=== PATIENT | female | born 1985 | race Caucasian/White ===

== ENCOUNTER 2016-07-23 | Outpatient (CLI) | END 2016-07-23 18:51 | disposition critical access hospital (66) | CPT/HCPCS: A0425; A0429 ==

== ENCOUNTER 2016-07-23 19:20 | Emergency (ER) | payer MEDICAID ==
[2016-07-23] MEDS ORDERED: LORazepam 2 MG/ML SYRINGE IVP STA (19:30)
[2016-07-23] MEDS ORDERED: LORazepam 2 MG/ML SYRINGE ONE (19:33)
[2016-07-23] MEDS ORDERED: diphenhydrAMINE INJ 50 MG/ML VIAL IVP STA (20:13)
[2016-07-23] MEDS ORDERED: HALOPERIDOL 5 MG/ML VIAL IVP ONE (20:13)
[2016-07-23] MEDS ORDERED: HALOPERIDOL 5 MG/ML VIAL ONE (20:15)
[2016-07-23] MEDS ORDERED: diphenhydrAMINE INJ 50 MG/ML VIAL ONE (20:15)
== END 2016-07-24 06:32 | disposition home or self-care (01) ==
DX: F15.10 Other stimulant abuse, uncomplicated (principal); Z87.891 Personal history of nicotine dependence
CPT/HCPCS: 36415; 80053; 80306; 80307; 80320; 80329; 81001; 81025; 83690; 84443; 85025; 96374; 96375; 99284; 99285; J2060

== ENCOUNTER 2016-08-07 | Outpatient (CLI) | payer MEDICAID | END 2016-08-07 22:52 | disposition EMS.NT | DX: R46.89 Other symptoms and signs involving appearance and behavior (principal) ==

== ENCOUNTER 2017-06-01 12:35 | Emergency (ER) | payer MEDICAID ==
--- NOTE | 2017-06-01 13:33 | ED Physician Documentation ---
PD HPI NVD - Stated complaint Stated Complaint: ABD PX/D/DIFF BREATHING - Chief complaint Chief Complaint: Abd Pain - History obtained from History obtained from: Patient - History of Present Illness Timing - onset: Yesterday Timing - duration: Days (1) Timing - details: Abrupt onset, Still present (She is still feeling nauseated though less diarrhea this morning. Having cramping lower abd pains still, left more than right.) Associated symptoms: Abdominal pain (lower), Loss of appetite. No: Fever, Chest pain, Near syncope / syncope Contributing factors: No: Sick contact, Bad food, Travel, Recent antibiotics, Alcohol use (but does do meth episodically.) Improved by: No: Eating Worsened by: Eating Similar symptoms before: Has not had sx before Recently seen: Not recently seen Review of Systems Constitutional: reports: Myalgias, Fatigue. denies: Fever, Chills Nose: reports: Congestion. denies: Rhinorrhea / runny nose Throat: denies: Sore throat Cardiac: denies: Chest pain / pressure Respiratory: denies: Cough GI: reports: Abdominal Pain, Nausea, Vomiting, Diarrhea. denies: Hematemesis, Bloody / black stool : denies: Dysuria, Frequency, Discharge, Missed period Skin: denies: Rash Musculoskeletal: denies: Neck pain, Back pain Neurologic: reports: Generalized weakness. 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 Living Arrangement: reports: At home - Social History Does the pt smoke?: No Smoking Status: Never smoker Does the pt drink ETOH?: No Does the pt have substance abuse?: Yes Substance Use and Type: Marijuana, Meth - Family History Family history: reports: Non contributory - Immunizations Immunizations are current?: Yes - POLST Patient has POLST: No PD ED PE NORMAL - Vitals Vital signs reviewed: Yes - General General: Alert and oriented X 3, No acute distress, Well developed/nourished - HEENT HEENT: Pharynx benign. No: Moist mucous membranes - Neck Neck: Supple, no meningeal sign, No adenopathy - Cardiac Cardiac: RRR, No murmur - Respiratory Respiratory: Clear bilaterally - Abdomen Abdomen: Normal bowel sounds, Soft, Non distended, No organomegaly, Other ( tender lower abd left mostly, but slight right. Some guarding, no rebound nor percussion tender.) - Female Female : Deferred - Rectal Rectal: Deferred - Back Back: No CVA TTP - Derm Derm: Normal color, Warm and dry, No rash - Neuro Neuro: Alert and oriented X 3, No motor deficit, Normal speech - Psych Psych: Other (somewhat tangential, and scattered thought process reason c/w meth use. ) Results - Vitals Vitals: Vital Signs - 24 hr 06/01/17 06/01/17 06/01/17 12:39 14:04 16:12 Temperature 37.1 C 36.9 C 36.5 C Heart Rate 123 H 110 H 74 Respiratory 20 16 15 Rate Blood Pressure 145/103 H 134/97 H 111/78 O2 Saturation 97 100 99 06/01/17 06/01/17 06/01/17 17:35 18:48 19:54 Temperature 36.3 C L 36.8 C 36.8 C Heart Rate 82 58 L 57 L Respiratory 15 16 15 Rate Blood Pressure 110/75 109/74 109/73 O2 Saturation 100 100 100 06/01/17 06/01/17 20:14 21:02 Temperature 36.8 C Heart Rate 93 80 Respiratory 18 18 Rate Blood Pressure 115/71 113/69 O2 Saturation 100 100 Oxygen O2 Source Room air - Labs Labs: Laboratory Tests 06/01/17 06/01/17 06/01/17 13:14 13:14 17:05 WBC 24.4 H RBC 4.79 Hgb 15.2 Hct 44.1 MCV 92.0 MCH 31.8 H MCHC 34.5 RDW 12.8 Plt Count 284 MPV 7.7 L Neut # 22.1 H Lymph # 1.5 Lake # 0.7 Eos # 0.0 Baso # 0.1 Absolute Nucleated RBC 0.00 Nucleated RBC % 0.0 Manual Slide Review Indicated RBC Morph Micro Appear 2+ ANISOCYTOSIS Sodium 133 L Potassium 2.6 L Chloride 95 L Carbon Dioxide 21 Anion Gap 17.0 H BUN 17 Creatinine 1.2 H Estimated GFR (MDRD) 52 L Glucose 160 H Calcium 9.6 Total Bilirubin 1.3 H AST 57 H ALT 17 Alkaline Phosphatase 55 Total Protein 8.7 H Albumin 4.8 Globulin 3.9 Albumin/Globulin Ratio 1.2 Lipase 30 Serum HCG, Qual NEGATIVE Urine Color Urine Clarity Urine pH Ur Specific [place] Urine Protein Urine Glucose (UA) Urine Ketones Urine Occult Blood Urine Nitrite Urine Bilirubin Urine Urobilinogen Ur Leukocyte Esterase Urine RBC Urine WBC Ur Squamous Epith Cells Urine Bacteria Ur Microscopic Review Urine Culture Comments Urine Opiates Screen Ur Oxycodone Screen Urine Methadone Screen Ur Propoxyphene Screen Ur Barbiturates Screen Ur Tricyclics Screen Ur Phencyclidine Scrn Ur Amphetamine Screen U Methamphetamines Scrn U Benzodiazepines Scrn Urine Cocaine Screen U Cannabinoids Screen 06/01/17 18:37 WBC RBC Hgb Hct MCV MCH MCHC RDW Plt Count MPV Neut # Lymph # [place] # Eos # Baso # Absolute Nucleated RBC Nucleated RBC % Manual Slide Review RBC Morph Micro Appear Sodium Potassium Chloride Carbon Dioxide Anion Gap BUN Creatinine Estimated GFR (MDRD) Glucose Calcium Total Bilirubin AST ALT Alkaline Phosphatase Total Protein Albumin Globulin Albumin/Globulin Ratio Lipase Serum HCG, Qual Urine Color YELLOW Urine Clarity CLEAR Urine pH 6.0 Ur Specific [place] 1.015 Urine Protein NEGATIVE Urine Glucose (UA) NEGATIVE Urine Ketones 15 H Urine Occult Blood MODERATE H Urine Nitrite NEGATIVE Urine Bilirubin NEGATIVE Urine Urobilinogen 0.2 (NORMAL) Ur Leukocyte Esterase SMALL H Urine RBC 6-10 H Urine WBC 11-25 H Ur Squamous Epith Cells MOD Squamous H Urine Bacteria Few Ur Microscopic Review INDICATED Urine Culture Comments NOT INDICATED Urine Opiates Screen POSITIVE H Ur Oxycodone Screen NEGATIVE Urine Methadone Screen NEGATIVE Ur Propoxyphene Screen NEGATIVE Ur Barbiturates Screen NEGATIVE Ur Tricyclics Screen NEGATIVE Ur Phencyclidine Scrn NEGATIVE Ur Amphetamine Screen POSITIVE H U Methamphetamines Scrn POSITIVE H U Benzodiazepines Scrn POSITIVE H Urine Cocaine Screen NEGATIVE U Cannabinoids Screen NEGATIVE - Rads (name of study) abd CT Radiology: Prelim report reviewed (wall thickening distal colon c/w colitis. Appendix okay. ) PD MEDICAL DECISION MAKING - ED course Complexity details: reviewed results, re-evaluated patient (Given fluids and meds. Recehcek abd with LLQ tender and some midline as well. Can get CT to eval ; less likely appendix with tender more to left but still wanting to eval. ), considered differential (sounds likely viral GE but having lower abd pain/ tender. Will give fluids and meds and then recheck. ), d/w patient Departure - Departure Disposition: 01 Home, Self Care Clinical Impression: Enteritis, Lower abdominal pain, Methamphetamine use Diarrhea Qualifiers: Diarrhea type: infectious Qualified Code(s): A09 - Infectious gastroenteritis and colitis, unspecified Condition: Stable Record reviewed to determine appropriate education?: Yes Instructions: Abdominal Pain, ED Diarrhea Viral Follow-Up: Silva Phillip ARNP [Primary Care Provider] - Prescriptions: Dicyclomine [Bentyl] 10 mg PO QID PRN #15 capsule PRN Reason: Spasms Ondansetron Odt [Zofran] 4 mg TL Q6H PRN #15 tablet PRN Reason: Nausea / Vomiting Comments: This sounds like a viral intestinal infection. Use ondansetron if needed for nausea. Tylenol or ibuprofen if needed for stomach cramps and pains. Add Bentyl if needed for worse cramps or pains. This will also help reduce diarrhea. For tonight into tomorrow use hydrocodone if needed every 4-6 hours. This should improve into tomorrow and the next day. Try to avoid recreational drug use. Drink lots of fluids. Discharge Date/Time: 06/01/17 21:16
[2017-06-01 13:44] LABS: BASOPHILS # (AUTO) 0.1 10^3/uL (0.0-0.1); BASOPHILS % (AUTO) 0.4 %; HCT - HEMATOCRIT 44.1 % (37.0-47.0); HGB - HEMOGLOBIN 15.2 g/dL (12.0-16.0); LYMPHOCYTES # (AUTO) 1.5 10^3/uL (1.5-3.5); LYMPHOCYTES % (AUTO) 6.2 %; MEAN CORPUSCULAR HEMOGLOBIN 31.8 pg (27.0-31.0); MEAN CORPUSCULAR HGB CONC 34.5 g/dL (32.0-36.0); MEAN PLATELET VOLUME 7.7 fL (7.9-10.8); MONOCYTES # (AUTO) 0.7 10^3/uL (0.0-1.0); NEUTROPHILS # (AUTO) 22.1 10^3/uL (1.5-6.6); NEUTROPHILS % (AUTO) 90.4 %; RED BLOOD COUNT 4.79 10^6/uL (4.20-5.40); RED CELL DISTRIBUTION WIDTH 12.8 % (12.0-15.0); UNCORRECTED WHITE BLOOD COUNT 24.4 x10^3/uL; WHITE BLOOD COUNT 24.4 x10^3/uL (4.8-10.8)
[2017-06-01] MEDS ORDERED: KETOROLAC 60 MG/2 ML VIAL IVP STA (13:51)
[2017-06-01] MEDS ORDERED: SODIUM CHLORIDE 0.9% 1,000 ML IV ONE ×2 (13:51→16:33)
[2017-06-01] MEDS ORDERED: ONDANSETRON 4 MG/2 ML VIAL IVP STA ×2 (13:51→16:33)
[2017-06-01] MEDS ORDERED: DIPHENOX/ATROPINE 2.5/0.025 MG TABLET PO STA (13:52)
[2017-06-01] MEDS ORDERED: HALOPERIDOL 5 MG/ML VIAL IVP ONE (13:52)
[2017-06-01 14:00] LABS: ALBUMIN/GLOBULIN RATIO 1.2 (1.0-2.2); BILIRUBIN,TOTAL 1.3 mg/dL (0.2-1.0); CALCIUM 9.6 mg/dL (8.5-10.3); CREATININE 1.2 mg/dL (0.4-1.0); POTASSIUM 2.6 mmol/L (3.5-5.0); TOTAL PROTEIN 8.7 g/dL (6.7-8.2)
[2017-06-01] MEDS ORDERED: ONDANSETRON 4 MG/2 ML VIAL ONE ×2 (14:21→16:47)
[2017-06-01] MEDS ORDERED: KETOROLAC 30 MG/ML VIAL ONE (14:21)
[2017-06-01] MEDS ORDERED: DIPHENOX/ATROPINE 2.5/0.025 MG TABLET PO ONE (14:21)
[2017-06-01] MEDS ORDERED: HALOPERIDOL 5 MG/ML VIAL ONE (14:21)
[2017-06-01] MEDS ORDERED: POTASSIUM BICARB 25 MEQ TABLET PO STA (15:11)
[2017-06-01] MEDS ORDERED: POTASSIUM BICARB 25 MEQ TABLET PO ONE (15:21)
[2017-06-01] MEDS ORDERED: fentaNYL 100 MCG/2 ML VIAL IVP STA (16:33)
[2017-06-01] MEDS ORDERED: fentaNYL 100 MCG/2 ML VIAL ONE (16:46)
[2017-06-01] MEDS ORDERED: IOPAMIDOL-300 100 ML VIAL ONE (17:00)
[2017-06-01 19:02] LABS: BILIRUBIN,URINE NEGATIVE (NEGATIVE)
[2017-06-01 19:13] LABS: UA w/ MICROSCOPIC CHARGE YES
[2017-06-01 19:14] LABS: UR CULTURE IF IND NOT INDICATED
[2017-06-01] MEDS ORDERED: IOPAMIDOL-300 100 ML VIAL IVP ONE (19:16)
--- NOTE | 2017-06-01 19:38 | CT Preliminary Report ---
Exam: CT ABDOMEN/PELVIS W/ IMPRESSION: 1. Small bowel wall thickening, most likely due to an enteritis, infectious versus noninfectious. 2. Other incidental or chronic findings. [facility] SITE ID: [id number]
--- NOTE | 2017-06-01 19:40 | CT Report ---
EXAM: CT ABDOMEN AND PELVIS EXAM DATE: 06/01/2017 07:06 PM. CLINICAL HISTORY: Lower abd pain. COMPARISONS: None. TECHNIQUE: Routine helical CT imaging was performed through the abdomen and pelvis. IV contrast: 100 ML ISOVUE 300. Enteric contrast: No. Reconstructions: Coronal and sagittal. In accordance with CT protocol optimization, one or more of the following dose reduction techniques w ere utilized for this exam: automated exposure control, adjustment of mA and/or KV based on patient s ize, or use of iterative reconstructive technique. FINDINGS: Lung Bases: Unremarkable. Liver: Normal. No masses. Gallbladder/Bile Ducts: Distended gallbladder measuring over 8 cm in length. Otherwise unremarkable. No ductal dilation. Spleen: Normal. Pancreas: Normal. Adrenal Glands: Normal. Kidneys: Normal. No masses or hydronephrosis. Peritoneal Cavity/Bowel: Nonspecific small bowel air-fluid levels. Mild wall thickening of mid small bowel loops measuring up to 9 mm in thickness. No free fluid, free air or adenopathy. Unremarkable r egion of appendix low in pelvis. Pelvic Organs: Unremarkable urinary bladder. Retroverted uterus with IUD in place. Vasculature: No aneurysms or other significant abnormality. Bones: No significant abnormality. Other: None. IMPRESSION: 1. Small bowel wall thickening, most likely due to an enteritis, infectious versus noninfectious. 2. Other incidental or chronic findings. [facility] Referring Provider Line: [phone] SITE ID: [id number]
[2017-06-01] MEDS ORDERED: ONDANSETRON ODT 4 MG Prepack 2 TL PRN (20:06)
[2017-06-01] MEDS ORDERED: HYDROcod/ACET 5/325 Prepack 6 PO ONE ×2 (20:06→20:15)
[2017-06-01] MEDS ORDERED: HYDROmorphone 1 MG/ML SYRINGE IVP STA (20:07)
[2017-06-01] MEDS ORDERED: HYDROmorphone 1 MG/ML SYRINGE ONE (20:15)
[2017-06-01] MEDS ORDERED: ONDANSETRON ODT 4 MG Prepack 2 TL ONE (20:15)
[2017-06-01 22:00] VITALS: BP 113/69
== END 2017-06-01 21:16 | disposition home or self-care (01) ==
LOC: ED 12:35
DX: K52.9 Noninfective gastroenteritis and colitis, unspecified (principal); R10.32 Left lower quadrant pain; F15.90 Other stimulant use, unspecified, uncomplicated
CPT/HCPCS: 36415; 74177; 80053; 80306; 81001; 83690; 84703; 85025; 96361; 96374; 96375; 96376; 99284; A9270; J1170; Q9967; 81003; 87086

== ENCOUNTER 2017-06-22 14:49 | Emergency (ER) | payer MEDICAID ==
[2017-06-22 15:02] VITALS: BP 113/72
[2017-06-22 15:49] LABS: BILIRUBIN,URINE NEGATIVE (NEGATIVE); PH,URINE 7.5 PH (5.0-7.5)
[2017-06-22 15:51] LABS: HCG UR QUAL NEGATIVE; UA w/ MICROSCOPIC CHARGE YES
[2017-06-22 15:58] LABS: UR CULTURE IF IND NOT INDICATED; WBC,URINE 0-3 /HPF (0-5)
--- NOTE | 2017-06-22 15:58 | ED Physician Documentation ---
PD HPI ABD PAIN - Stated complaint Stated Complaint: ABD PX,FEMALE - Chief complaint Chief Complaint: Abd Pain - History obtained from History obtained from: Patient - History of Present Illness Quality: Cramping Associated symptoms: Diarrhea (for about one week, up to two soft stools per day.). No: Fever, Nausea, Vomiting, Dysuria Similar symptoms before: Diagnosis (History of enteritis and vaginosis) Recently seen: Clinic ([facility] one week ago, and prescribed Flagyl for vaginosis.) - Additional information Additional information: The patient is a 32-year-old female who presents with lower abdominal cramping pain that has been waxing and waning for several days. She also reports vaginal bleeding, particularly after intercourse, for the past 3 days. She reports mild dysuria. She denies fever, nausea or vomiting. She reports diarrhea for the past week with up to 2 stools per day. She was seen in the [facility] clinic 1 week ago and was diagnosed with vaginosis for which she was prescribed Flagyl. She only took 1 dose of the Flagyl and has not taken the remainder. Review of her medical records reveals she was seen here last month with similar symptoms and was diagnosed with enteritis. She also has been positive for methamphetamine use on her last few emergency department visits. Review of Systems Constitutional: denies: Fever Nose: denies: Congestion Throat: denies: Sore throat Cardiac: denies: Chest pain / pressure Respiratory: denies: Dyspnea, Cough GI: reports: Abdominal Pain, Diarrhea. 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 - Present Medications Home Medications: Ambulatory Orders Medication Instructions Recorded Confirmed FLUoxetine [PROzac] 80 mg PO DAILY 12/05/12 06/22/17 clonazePAM [KlonoPIN] 1 mg QID 05/02/16 06/22/17 Topiramate [Topamax] 50 mg PO 06/01/17 HYDROcod/ACETAM 5/325 [Vicodin 1 - 2 ea PO Q6H PRN #6 tablet 06/22/17 5/325] - Allergies Allergies/Adverse Reactions: Allergies Allergy/AdvReac Type Severity Reaction Status Date / Time Penicillins Allergy Severe Hives Verified 06/22/17 15:02 - Social History Does the pt smoke?: No Smoking Status: Never smoker Does the pt drink ETOH?: No Does the pt have substance abuse?: Yes Substance Use and Type: Meth - Immunizations Immunizations are current?: Yes - POLST Patient has POLST: No PD ED PE NORMAL - Vitals Vital signs reviewed: Yes (normal) - General General: Alert and oriented X 3, Well developed/nourished - HEENT HEENT: Atraumatic, EOMI, Moist mucous membranes, Pharynx benign - Neck Neck: No adenopathy, No JVD - Cardiac Cardiac: RRR, No murmur - Respiratory Respiratory: No respiratory distress, Clear bilaterally - Abdomen Abdomen: Normal bowel sounds, Soft, Non tender, No organomegaly - Back Back: No CVA TTP - Derm Derm: No rash - Extremities Extremities: No edema, No calf tenderness / cord - Neuro Neuro: Alert and oriented X 3, No motor deficit, Normal speech PD ED PE EXPANDED - Female Female : Normal external, Normal exam, Vaginal Bleeding (Scant blood-tinged mucus at the cervical os.), Cultures sent, Clinical Team Manager present. No: Vaginal Discharge, CMT, Adnexal Mass, Adnexal Tenderness Results - Vitals Vitals: Oxygen O2 Source Room air - Labs Labs: Laboratory Tests 06/22/17 06/22/17 15:36 15:36 Urine Color YELLOW Urine Clarity CLEAR Urine pH 7.5 Ur Specific [place] 1.020 Urine Protein NEGATIVE Urine Glucose (UA) NEGATIVE Urine Ketones NEGATIVE Urine Occult Blood SMALL H Urine Nitrite NEGATIVE Urine Bilirubin NEGATIVE Urine Urobilinogen 0.2 (NORMAL) Ur Leukocyte Esterase NEGATIVE Urine RBC 0-5 Urine WBC 0-3 Ur Squamous Epith Cells FEW Squamous Urine Bacteria Rare Ur Microscopic Review INDICATED Urine Culture Comments NOT INDICATED Urine HCG, Qual NEGATIVE Urine Opiates Screen NEGATIVE Ur Oxycodone Screen NEGATIVE Urine Methadone Screen NEGATIVE Ur Propoxyphene Screen NEGATIVE Ur Barbiturates Screen NEGATIVE Ur Tricyclics Screen NEGATIVE Ur Phencyclidine Scrn NEGATIVE Ur Amphetamine Screen NEGATIVE U Methamphetamines Scrn NEGATIVE U Benzodiazepines Scrn POSITIVE H Urine Cocaine Screen NEGATIVE U Cannabinoids Screen NEGATIVE PD MEDICAL DECISION MAKING - ED course Complexity details: reviewed old records, reviewed results, re-evaluated patient , considered differential, d/w patient ED course: The patient's presentation is significant for pelvic cramping of uncertain etiology. She has been recently diagnosed with bacterial vaginosis, but has not taken the prescribed medication, although she does have the medication in her possession. Pelvic exam was performed and cervical cultures were sent to the lab. test is negative, and there is no evidence of urinary tract infection. I discussed with the patient and her male profiler the importance of taking antibiotics as previously prescribed. Because of her cramping pain, a short course of Vicodin, 6 tablets was prescribed. I discussed with her the importance of outpatient follow-up, as well as potentially worrisome signs or symptoms that should prompt reevaluation in the emergency department. Departure - Departure Disposition: 01 Home, Self Care Clinical Impression: Pelvic pain, Vaginosis Condition: Stable Instructions: ED Pelvic Pain [facility] Follow-Up: Anneliese Gregory, [Provider Admit Priv/Credential] - Prescriptions: HYDROcod/ACETAM 5/325 [Vicodin 5/325] 1 - 2 ea PO Q6H PRN #6 tablet PRN Reason: Pain Comments: Continue ibuprofen as needed for pain. Resume taking Flagyl as previously prescribed by your material coordinator. You can use Vicodin as prescribed if needed for pain. Follow-up for pelvic ultrasound next week as scheduled. Follow up with your material coordinator next week as scheduled. Return to the emergency department if you develop increasing abdominal or pelvic pain, or otherwise worsening symptoms. Discharge Date/Time: 06/22/17 17:09
== END 2017-06-22 17:09 | disposition home or self-care (01) ==
LOC: ED 14:49
DX: N76.0 Acute vaginitis (principal); R10.2 Pelvic and perineal pain; F15.90 Other stimulant use, unspecified, uncomplicated
CPT/HCPCS: 80306; 81001; 81003; 81025; 87086; 87491; 87591; 99283

== ENCOUNTER 2017-06-26 18:35 | Emergency (ER) | payer MEDICAID ==
[2017-06-26] MEDS ORDERED: cefTRIAXone 250 MG VIAL IM STA (19:40)
[2017-06-26] MEDS ORDERED: AZITHROMYCIN 250 MG TABLET PO STA (19:41)
[2017-06-26] MEDS ORDERED: LIDOCAINE 1% 2 ML VIAL ONE (20:23)
[2017-06-26] MEDS ORDERED: cefTRIAXone 250 MG VIAL ONE (20:24)
[2017-06-26] MEDS ORDERED: AZITHROMYCIN 250 MG TABLET PO ONE (20:25)
--- NOTE | 2017-06-26 20:27 | ED Physician Documentation ---
History of Present Illness - Stated complaint Stated Complaint: FEMALE - Chief complaint Chief Complaint: General - History obtained from History obtained from: Patient, Family - History of Present Illness Timing: How many days ago (several) Pain level max: 6 Pain level now: 4 Improved by: vicodin Worsened by: nothing - Additonal information Additional information: Patient is a 32-year-old female who was seen here a few days ago, tested for gonorrhea and the test came back positive this morning. Called to return to the emergency department for treatment. She is still having some abdominal pain and cramping. No fevers. No vomiting. 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 - Present Medications Home Medications: Ambulatory Orders Medication Instructions Recorded Confirmed FLUoxetine [PROzac] 80 mg PO DAILY 12/05/12 06/22/17 clonazePAM [KlonoPIN] 1 mg QID 05/02/16 06/22/17 Topiramate [Topamax] 50 mg PO 06/01/17 HYDROcod/ACETAM 5/325 [Vicodin 1 - 2 ea PO Q6H PRN #6 tablet 06/22/17 06/26/17 5/325] Hydrocodone/Acetaminophen 1 - 2 each PO Q6H PRN #7 tablet 06/26/17 [Hydrocodon-Acetaminophen 5-325] - Allergies Allergies/Adverse Reactions: Allergies Allergy/AdvReac Type Severity Reaction Status Date / Time Penicillins Allergy Severe Hives Verified 06/22/17 15:02 - Social History Does the pt smoke?: No Smoking Status: Never smoker Does the pt drink ETOH?: No Does the pt have substance abuse?: Yes - Immunizations Immunizations are current?: Yes - POLST Patient has POLST: No PD ED PE NORMAL - Vitals Vital signs reviewed: Yes - General General: Alert and oriented X 3, No acute distress, Well developed/nourished - HEENT HEENT: PERRL, Moist mucous membranes - Neck Neck: Supple, no meningeal sign - Cardiac Cardiac: RRR, Strong equal pulses - Respiratory Respiratory: No respiratory distress, Clear bilaterally - Abdomen Abdomen: Normal bowel sounds, Soft, Non tender, Non distended - Derm Derm: Warm and dry - Neuro Neuro: Alert and oriented X 3 - Psych Psych: Normal mood, Normal affect Results - Vitals Vitals: Vital Signs - 24 hr 06/26/17 06/26/17 06/26/17 18:39 21:06 21:21 Temperature 36.9 C 37.2 C 36.7 C Heart Rate 90 94 66 Respiratory 17 18 18 Rate Blood Pressure 153/89 H 132/82 H 147/64 H O2 Saturation 98 98 97 Oxygen O2 Source Room air PD MEDICAL DECISION MAKING - ED course Complexity details: reviewed old records, considered differential, d/w patient ED course: Patient is a 32-year-old female who test positive for gonorrhea. Treated here. Tolerated well. We will have her follow-up with her doctor for further care. Patient counseled regarding signs and symptoms for which I believe and urgent re-evaluation would be necessary. Patient with good understanding of and agreement to plan and is comfortable going home at this time This document was made in part using voice recognition software. While efforts are made to proofread this document, sound alike and grammatical errors may occur. Departure - Departure Disposition: 01 Home, Self Care Clinical Impression: Gonorrhea Condition: Good Instructions: ED Gonorrhea Female Follow-Up: Silva Phillip ARNP [Primary Care Provider] - Within 1 week Anneliese Gregory DO [Provider Admit Priv/Credential] - Tomorrow Prescriptions: Hydrocodone/Acetaminophen [Hydrocodon-Acetaminophen 5-325] 1 - 2 each PO Q6H PRN #7 tablet PRN Reason: pain Comments: You were treated for gonorrhea tonight. Use condoms for sexual activity and you should be retested to ensure that the infection has cleared from you and your partner. Notify any partners that they may be exposed as well. Discharge Date/Time: 06/26/17 21:21
[2017-06-26 21:28] VITALS: BP 147/64
== END 2017-06-26 21:21 | disposition home or self-care (01) ==
LOC: ED 18:35
DX: A54.9 Gonococcal infection, unspecified (principal)
CPT/HCPCS: 96372; 99283; A9270

== ENCOUNTER 2017-07-03 15:02 | Emergency (ER) | payer MEDICAID ==
[2017-07-03 15:22] VITALS: BP 128/72
== END 2017-07-03 15:42 | disposition left against medical advice (07) ==
LOC: ED 15:02
DX: Z53.21 Procedure and treatment not carried out due to patient leaving prior to being seen by health care provider (principal)

== ENCOUNTER 2017-07-09 17:32 | Emergency (ER) | payer MEDICAID ==
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
[2017-07-09] MEDS ORDERED: oxyCOD/ACETAMIN 5 MG/325 MG TABLET PO STA ×2 (18:43→20:18)
[2017-07-09] MEDS ORDERED: KETOROLAC 60 MG/2 ML VIAL IM STA (18:43)
[2017-07-09] MEDS ORDERED: LORazepam 0.5 MG TABLET PO STA (18:44)
--- NOTE | 2017-07-09 20:08 | CT Preliminary Report ---
Exam: CT HEAD W/O IMPRESSION: Normal head CT. [facility] SITE ID: [id number]
--- NOTE | 2017-07-09 20:11 | CT Preliminary Report ---
Exam: CT FACIAL BONES W/O IMPRESSION: Nasal bone fractures, displaced to the left. [facility] SITE ID: [id number]
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
[2017-07-09] MEDS ORDERED: CLINDAMYCIN 150 MG CAPSULE PO STA (20:18)
[2017-07-09] MEDS ORDERED: cefTRIAXone 500 MG VIAL IM STA (20:18)
[2017-07-09] MEDS ORDERED: oxyCODONE/ACET 5/325 Prepack 4 PO STA (20:23)
[2017-07-09] MEDS ORDERED: LIDOCAINE 1% 2 ML VIAL ONE (20:33)
[2017-07-09 20:58] VITALS: BP 127/88
== END 2017-07-09 21:34 | disposition home or self-care (01) ==
LOC: ED 17:32
DX: S00.12XA Contusion of left eyelid and periocular area, initial encounter (principal); S02.2XXA Fracture of nasal bones, initial encounter for closed fracture; Y04.0XXA Assault by unarmed brawl or fight, initial encounter; N76.0 Acute vaginitis; B96.89 Other specified bacterial agents as the cause of diseases classified elsewhere
CPT/HCPCS: 70450; 70486; 87210; 87491; 87591; 96372; 99283; 99284; A9270

== ENCOUNTER 2017-07-14 22:18 | Emergency (ER) | payer MEDICAID ==
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
[2017-07-14] MEDS ORDERED: ACETAMINOPHEN 325 MG TABLET PO STA (22:49)
[2017-07-14 22:55] VITALS: BP 128/68
== END 2017-07-14 22:50 | disposition home or self-care (01) ==
LOC: ED 22:18
DX: S02.2XXA Fracture of nasal bones, initial encounter for closed fracture (principal); S00.12XA Contusion of left eyelid and periocular area, initial encounter; S00.11XA Contusion of right eyelid and periocular area, initial encounter; Y09 Assault by unspecified means; Y92.009 Unspecified place in unspecified non-institutional (private) residence as the place of occurrence of the external cause
CPT/HCPCS: 99282; 99283

== ENCOUNTER 2017-08-04 12:01 | Outpatient (CLI) | payer MEDICAID ==
[2017-08-05 12:56] LABS: HEPATITIS C ANTIBODY NON-REACTIVE (NON-REACTIVE)
== END 2017-08-04 12:02 | disposition home or self-care (01) ==
LOC: LAB 12:01
PROVIDERS: ATTEND Obstetrics & Gynecology
DX: Z11.3 Encounter for screening for infections with a predominantly sexual mode of transmission (principal)
CPT/HCPCS: 36415; 86803

== ENCOUNTER 2017-08-04 12:17 | Observation (INO) | payer MEDICAID ==
[2017-08-04 14:06] LABS: BILIRUBIN,URINE NEGATIVE (NEGATIVE); GLUCOSE, URINE (UA) NEGATIVE (NEGATIVE); KETONES,URINE (UA) NEGATIVE (NEGATIVE); LEUKOCYTE ESTERASE, URINE NEGATIVE (NEGATIVE); NITRITE,URINE NEGATIVE (NEGATIVE); OCCULT BLOOD,URINE MODERATE (NEGATIVE); PROTEIN,URINE NEGATIVE (NEGATIVE); UROBILINOGEN,URINE 0.2 (NORMAL) E.U./dL (NORMAL)
[2017-08-04 14:09] LABS: CLARITY,URINE CLEAR (CLEAR); HCG UR QUAL NEGATIVE
[2017-08-04] MEDS ORDERED: HYDROcod/ACETAM 5/325 MG TABLET PO STA (14:32)
[2017-08-04 14:33] LABS: BACTERIA,URINE Rare /HPF (None Seen); RBC,URINE 0-5 /HPF (0-5); SQUAMOUS EPITHELIAL CELL,UR NONE SEEN (<= Few)
--- NOTE | 2017-08-04 14:38 | ED Physician Documentation ---
PD HPI FEMALE - Stated complaint Stated Complaint: FEMALE - Chief complaint Chief Complaint: Abd Pain - History obtained from History obtained from: Patient - History of Present Illness Timing - onset: How many weeks ago (several) Timing - duration: Weeks Timing - details: Gradual onset Pain level max: 8 Pain level max: 8 Associated symptoms: Pelvic pain, Vaginal pain, Vaginal bleeding, Vaginal discharge. No: Fever, Dysuria, Urinary frequency Contributing factors: Exposed to STD (gonorrhea) Similar symptoms before: Diagnosis (gonorrhea) - Additional information Additional information: Patient is a 32-year-old female who presents to the emergency department with complaints of continual vaginal discharge, burning and pain. She was treated for gonorrhea approximately 3 weeks ago with Rocephin and azithromycin. After that was treated with Flagyl for a yeast infection and bacterial vaginitis. Was then re-treated for gonorrhea with azithromycin 1 g p.o. She states she is still having symptoms. Has continued vaginal discharge and pain. Continued itching. Has lower abdominal pain as well. No fevers. No vomiting. Review of Systems Ten Systems: 10 systems reviewed and negative Constitutional: denies: Fever, Chills Ears: denies: Ear pain Nose: denies: Rhinorrhea / runny nose, Congestion Throat: denies: Sore throat Cardiac: denies: Chest pain / pressure Respiratory: denies: Cough GI: denies: Nausea, Vomiting, Diarrhea Skin: denies: Rash Musculoskeletal: denies: Neck pain, Back pain Neurologic: denies: Headache PD PAST MEDICAL HISTORY - Past Medical History Past Medical History: No Respiratory: None Neuro: None Endocrine/Autoimmune: None Psych: Depression, Anxiety, Eating disorder - Past Surgical History 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 - Present Medications Home Medications: Ambulatory Orders Medication Instructions Recorded Confirmed Topiramate [Topamax] 50 mg PO QPM 06/01/17 08/04/17 Clonidine HCl [Catapres] 0.2 mg PO DAILY 07/09/17 08/04/17 Fluoxetine HCl [Fluoxetine HCl] 80 mg PO DAILY 08/04/17 08/04/17 Ibuprofen 600 mg PO BID 08/04/17 08/04/17 clonazePAM [Clonazepam] 1 mg PO QID PRN 08/04/17 08/04/17 traZODone [Desyrel] 50 mg PO QPM 08/04/17 08/04/17 - Allergies Allergies/Adverse Reactions: Allergies Allergy/AdvReac Type Severity Reaction Status Date / Time Penicillins Allergy Severe Hives Verified 08/04/17 12:24 - Social History Does the pt smoke?: No Smoking Status: Never smoker Does the pt drink ETOH?: No Does the pt have substance abuse?: Yes - Immunizations Immunizations are current?: Yes - POLST Patient has POLST: No PD ED PE NORMAL - Vitals Vital signs reviewed: Yes - General General: Alert and oriented X 3, No acute distress - HEENT HEENT: Moist mucous membranes - Neck Neck: Supple, no meningeal sign - Cardiac Cardiac: RRR, Strong equal pulses - Respiratory Respiratory: No respiratory distress, Clear bilaterally - Abdomen Abdomen: Soft, Non distended, Other (Mild tenderness to palpation suprapubic. 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 IUD strings visible. + CMT. +R adnexal tenderness.) - Back Back: No CVA TTP - Derm Derm: Warm and dry - Extremities Extremities: No edema, No calf tenderness / cord - Neuro Neuro: Alert and oriented X 3 - Psych Psych: Normal mood, Normal affect Results - Vitals Vitals: Vital Signs - 24 hr 08/04/17 08/04/17 12:20 17:18 Temperature 37 C 37.3 C Heart Rate 77 62 Respiratory 16 16 Rate Blood Pressure 113/68 115/82 H O2 Saturation 100 100 Oxygen O2 Source Room air - Labs Labs: Microbiology 08/04/17 14:49 Wet Prep - Final Vaginal 08/04/17 14:50 CAIO Preparation - Final Other - Vaginal Laboratory Tests 08/04/17 08/04/17 08/04/17 13:45 17:00 17:00 WBC 7.5 RBC 4.14 L Hgb 13.2 Hct 38.6 MCV 93.3 MCH 32.0 H MCHC 34.3 RDW 13.3 Plt Count 225 MPV 7.1 L Neut # 5.3 Lymph # 1.5 [place] # 0.5 Eos # 0.2 Baso # 0.1 Absolute Nucleated RBC 0.00 Nucleated RBC % 0.0 Sodium 137 Potassium 4.1 Chloride 103 Carbon Dioxide 25 Anion Gap 9.0 BUN 11 Creatinine 0.6 Estimated GFR (MDRD) 117 Glucose 92 Calcium 8.9 Total Bilirubin 0.2 AST 55 H ALT 23 Alkaline Phosphatase 55 Total Protein 7.3 Albumin 4.3 Globulin 3.0 Albumin/Globulin Ratio 1.4 Lipase 57 H Urine Color YELLOW Urine Clarity CLEAR Urine pH 7.0 Ur Specific [place] 1.020 Urine Protein NEGATIVE Urine Glucose (UA) NEGATIVE Urine Ketones NEGATIVE Urine Occult Blood MODERATE H Urine Nitrite NEGATIVE Urine Bilirubin NEGATIVE Urine Urobilinogen 0.2 (NORMAL) Ur Leukocyte Esterase NEGATIVE Urine RBC 0-5 Urine WBC 0-3 Ur Squamous Epith Cells NONE SEEN Urine Bacteria Rare Ur Microscopic Review INDICATED Urine Culture Comments NOT INDICATED Urine HCG, Qual NEGATIVE - Rads (name of study) pelvic US Radiology: Prelim report reviewed, EMP read contemporaneously, See rad report ( Small free fluid in the pelvis. The uterus and ovaries appear within normal limits. Corpus luteum in the right ovary. Intrauterine device in place.) PD MEDICAL DECISION MAKING - ED course Complexity details: reviewed old records, reviewed results, re-evaluated patient , considered differential, d/w patient, d/w recruiting consultant ED course: Patient is a 32-year-old female who presents to the emergency department with ongoing symptoms of PID. She has been treated multiple times in the past few weeks for gonorrhea and failed oral antibiotics. She will be retested today. She has significant cervical motion tenderness as well as he very tender right adnexa. Therefore a pelvic ultrasound was ordered, I reviewed the images personally and I am concerned about a tubo-ovarian abscess in the right ovary. Discussed the case with Dr. Gregory, gynecology on-call who came and evaluated the patient in the emergency department and agrees with the concern for TOA. Patient will be placed in observation for IV antibiotics and to see how she progresses over the next 24 hours. This document was made in part using voice recognition software. While efforts are made to proofread this document, sound alike and grammatical errors may occur. Departure - Departure Disposition: ED Place in Observation Clinical Impression: Tubo-ovarian abscess Condition: Stable Discharge Date/Time: 08/04/17 18:30
[2017-08-04] MEDS ORDERED: LORazepam 0.5 MG TABLET PO STA (15:04)
[2017-08-04] MEDS ORDERED: HYDROmorphone 1 MG/ML SYRINGE IVP STA (16:46)
--- NOTE | 2017-08-04 16:47 | Ultrasound Report ---
EXAM: PELVIC ULTRASOUND EXAM DATE: 08/04/2017 04:32 PM. CLINICAL HISTORY: Right pelvic pain, + gonorrhea test 3 weeks ago. COMPARISON: CT abdomen and pelvis 06/01/2017. TECHNIQUE: Realtime transabdominal pelvic scan performed to identify the uterus and adnexa and as an overview of other pelvic structures, followed by transvaginal scan to provide greater detail of the u terus and adnexa, with static image documentation. FINDINGS: Uterus: 6.9 x 5 x 4.2 cm, volume 75.7 cc. Anteverted position. Normal overall size and echotexture. Masses: None. Endometrium: 4.8 mm. Normal. Intrauterine device in place. Cervix: Unremarkable. Right Ovary: 3.9 x 2.2 x 2.2 cm, volume 14.3 cc. Normal echotexture and blood flow. Corpus luteum zaid suring 2.9 x 1.7 x 2.2 cm. Left Ovary: 4 x 1.7 x 1.8 cm, volume 6.4 cc. Normal echotexture and blood flow. Free Fluid: Small IMPRESSION: Small free fluid in the pelvis. The uterus and ovaries appear within normal limits. Corpus luteum in the right ovary. Intrauterine device in place. [facility] Referring Provider Line: [phone] SITE ID: [id number]
[2017-08-04 17:06] LABS: BASOPHILS # (AUTO) 0.1 10^3/uL (0.0-0.1); BASOPHILS % (AUTO) 0.7 %; EOSINOPHILS # (AUTO) 0.2 10^3/uL (0.0-0.7); EOSINOPHILS % (AUTO) 2.8 %; HGB - HEMOGLOBIN 13.2 g/dL (12.0-16.0); LYMPHOCYTES # (AUTO) 1.5 10^3/uL (1.5-3.5); LYMPHOCYTES % (AUTO) 19.5 %; MEAN CORPUSCULAR HGB CONC 34.3 g/dL (32.0-36.0); MEAN CORPUSCULAR VOLUME 93.3 fL (81.0-99.0); MEAN PLATELET VOLUME 7.1 fL (7.9-10.8); MONOCYTES # (AUTO) 0.5 10^3/uL (0.0-1.0); MONOCYTES % (AUTO) 7.1 %; NEUTROPHILS # (AUTO) 5.3 10^3/uL (1.5-6.6); NEUTROPHILS % (AUTO) 69.9 %; PLT - PLATELET COUNT 225 10^3/uL (130-450); RED BLOOD COUNT 4.14 10^6/uL (4.20-5.40); RED CELL DISTRIBUTION WIDTH 13.3 % (12.0-15.0); WHITE BLOOD COUNT 7.5 x10^3/uL (4.8-10.8)
[2017-08-04 17:24] LABS: ALBUMIN 4.3 g/dL (3.2-5.5); ALBUMIN/GLOBULIN RATIO 1.4 (1.0-2.2); BILIRUBIN,TOTAL 0.2 mg/dL (0.2-1.0); CALCIUM 8.9 mg/dL (8.5-10.3); CREATININE 0.6 mg/dL (0.4-1.0); TOTAL PROTEIN 7.3 g/dL (6.7-8.2)
[2017-08-04] MEDS ORDERED: ONDANSETRON 4 MG/2 ML VIAL IVP PRN (17:33)
[2017-08-04] MEDS ORDERED: SODIUM CHLORIDE FLUSH 0.9% 10 ML SYRINGE IVP PRN (17:33)
[2017-08-04] MEDS ORDERED: LORazepam 2 MG/ML VIAL IVP PRN (17:36)
[2017-08-04] MEDS ORDERED: ZOLPIDEM 5 MG TABLET PO PRN (17:40)
[2017-08-04] MEDS ORDERED: diphenhydrAMINE 25 MG CAPSULE PO PRN (17:42)
--- NOTE | 2017-08-04 17:44 | PROVIDER PROGRESS NOTE ---
Subjective - Prog Note Date Prog Note Date: 08/04/17 Prog Note Time: 17:43 - Subjective Pt reports feeling: No change Objective - Vital Signs/Intake & Output Vital Signs: Vital Signs x48h Temp Pulse Resp BP Pulse Ox 08/04/17 17:18 99.1 F 62 16 115/82 H 100 08/04/17 12:20 98.6 F 77 16 113/68 100 - Lab Results Fish Bones: 08/04/17 17:00 08/04/17 17:00 Other Labs: Lab Results x24hrs 08/04/17 08/04/17 08/04/17 Range/Units 17:00 17:00 13:45 WBC 7.5 (4.8-10.8) x10^3/uL RBC 4.14 L (4.20-5.40) 10^6/uL Hgb 13.2 (12.0-16.0) g/dL Hct 38.6 (37.0-47.0) % MCV 93.3 (81.0-99.0) fL MCH 32.0 H (27.0-31.0) pg MCHC 34.3 (32.0-36.0) g/dL RDW 13.3 (12.0-15.0) % Plt Count 225 (130-450) 10^3/uL MPV 7.1 L (7.9-10.8) fL Neut # 5.3 (1.5-6.6) 10^3/uL Lymph # 1.5 (1.5-3.5) 10^3/uL [place] # 0.5 (0.0-1.0) 10^3/uL Eos # 0.2 (0.0-0.7) 10^3/uL Baso # 0.1 (0.0-0.1) 10^3/uL Absolute Nucleated RBC 0.00 x10^3/uL Nucleated RBC % 0.0 /100WBC Sodium 137 (135-145) mmol/L Potassium 4.1 (3.5-5.0) mmol/L Chloride 103 (101-111) mmol/L Carbon Dioxide 25 (21-32) mmol/L Anion Gap 9.0 (6-13) BUN 11 (6-20) mg/dL Creatinine 0.6 (0.4-1.0) mg/dL Estimated GFR (MDRD) 117 (>89) Glucose 92 (70-100) mg/dL Calcium 8.9 (8.5-10.3) mg/dL Total Bilirubin 0.2 (0.2-1.0) mg/dL AST 55 H (10-42) IU/L ALT 23 (10-60) IU/L Alkaline Phosphatase 55 (42-121) IU/L Total Protein 7.3 (6.7-8.2) g/dL Albumin 4.3 (3.2-5.5) g/dL Globulin 3.0 (2.1-4.2) g/dL Albumin/Globulin Ratio 1.4 (1.0-2.2) Lipase 57 H (22-51) U/L Urine Color YELLOW Urine Clarity CLEAR (CLEAR) Urine pH 7.0 (5.0-7.5) PH Ur Specific [place] 1.020 (1.002-1.030) Urine Protein NEGATIVE (NEGATIVE) mg/dL Urine Glucose (UA) NEGATIVE (NEGATIVE) mg/dL Urine Ketones NEGATIVE (NEGATIVE) mg/dL Urine Occult Blood MODERATE H (NEGATIVE) Urine Nitrite NEGATIVE (NEGATIVE) Urine Bilirubin NEGATIVE (NEGATIVE) Urine Urobilinogen 0.2 (NORMAL) (NORMAL) E.U./dL Ur Leukocyte Esterase NEGATIVE (NEGATIVE) Urine RBC 0-5 (0-5) /HPF Urine WBC 0-3 (0-5) /HPF Ur Squamous Epith Cells NONE SEEN (<= Few) Urine Bacteria Rare (None Seen) /HPF Ur Microscopic Review INDICATED Urine Culture Comments NOT INDICATED Urine HCG, Qual NEGATIVE Assessment/Plan - Problem List (1) Tubo-ovarian abscess Impression: 32 yo with right TOA, failed out patient antibiotic treatment Admit for IV antibiotics Diflucan for likely candidiasis Agressive pain control Minimum of 24 hours of antibiotics. Will treat mainly by pain. May need 48 hours or antibiotics but no more than 96 hours Await results of GC/CT H&P Dictated: [id number]
[2017-08-04] MEDS ORDERED: SODIUM CHLORIDE 0.9% IV SCH (18:00)
[2017-08-04] MEDS ORDERED: GENTAMICIN PER PHARMACY IV SCH (18:00)
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
[2017-08-04] MEDS: AMPICILLIN 2 GM in SODIUM CHLORIDE 0.9% MINIBAG 100 ML IV SCH (19:35)
[2017-08-04] MEDS: CELECOXIB 100 MG CAPSULE PO SCH (19:37)
[2017-08-04] MEDS ORDERED: FLUCONAZOLE 100 MG TABLET PO ONE (20:00)
[2017-08-04] MEDS: GENTAMICIN 440 MG in SODIUM CHLORIDE 0.9% 100ML 100 ML IV SCH (20:39)
[2017-08-04] MEDS: oxyCODONE 5 MG TABLET PO SCH (21:05)
[2017-08-04] MEDS: ACETAMINOPHEN 500 MG TABLET PO SCH (22:29)
[2017-08-04] MEDS: CLINDAMYCIN 900 MG/50 ML 50 ML IV SCH (22:34)
[2017-08-04] MEDS: SODIUM CHLORIDE FLUSH 0.9% 10 ML SYRINGE IVP SCH (22:35)
[2017-08-05] MEDS: AMPICILLIN 2 GM in SODIUM CHLORIDE 0.9% MINIBAG 100 ML IV SCH ×4 (00:11→17:24)
[2017-08-05] MEDS: oxyCODONE 5 MG TABLET PO SCH ×6 (00:26→20:38)
[2017-08-05 05:33] LABS: GENTAMICIN,RANDOM 3.7 ug/mL
[2017-08-05] MEDS: ACETAMINOPHEN 500 MG TABLET PO SCH ×3 (06:42→22:14)
[2017-08-05] MEDS: SODIUM CHLORIDE FLUSH 0.9% 10 ML SYRINGE IVP SCH ×3 (06:43→22:15)
[2017-08-05] MEDS: CLINDAMYCIN 900 MG/50 ML 50 ML IV SCH ×3 (06:43→22:15)
[2017-08-05] MEDS: CELECOXIB 100 MG CAPSULE PO SCH ×2 (09:07→20:38)
--- NOTE | 2017-08-05 10:36 | PROVIDER PROGRESS NOTE ---
Subjective - Prog Note Date Prog Note Date: 08/05/17 Prog Note Time: 10:34 - Subjective Pt reports feeling: No change Subjective: Patient sitting in bed. States minimal improvement on pain; only improved by 1 number. No nausea or vomiting. Still having suprapubic pain, worsened with urination. No beba dysuria. No fevers or chills. Objective - Vital Signs/Intake & Output Reviewed Vital Signs: Yes Vital Signs: Vital Signs x48h Temp Pulse Resp BP Pulse Ox 08/05/17 04:32 97.9 F 60 16 100/69 98 Intake & Output: Intake & Output 08/02/17 08/03/17 08/04/17 08/05/17 23:59 23:59 23:59 23:59 Intake Total 261 900 Balance 261 900 - Objective General Appearance: positive: No acute distress Eyes Bilateral: positive: Normal inspection Abdomen: positive: Non-tender (No peritoneal signs (rebound, guarding, rigidity) ) - Lab Results Fish Bones: 08/04/17 17:00 08/04/17 17:00 Other Labs: Lab Results x24hrs 08/05/17 Range/Units 04:52 Last Dose Date 08-04-17 Last Dose Time 1816 Random Gentamicin 3.7 ug/mL Assessment/Plan - Problem List (1) Tubo-ovarian abscess Impression: 32 yo with a right TOA. Minimal improvement with IV antibiotics. Will continue current IV treatment. Likely patient has GC with resistance explaining failed outpatient treatment. Anticipate patient to continue IV antibiotics and consider discharge to home tomorrow. Continue aggressive pain control. surgical services assistant consult today.
[2017-08-05] MEDS ORDERED: WITCH HAZEL/GLYCERIN 1 EACH MED..PAD TOP PRN (18:59)
[2017-08-05] MEDS: GENTAMICIN 440 MG in SODIUM CHLORIDE 0.9% 100ML 100 ML IV SCH (20:26)
[2017-08-05] MEDS ORDERED: SODIUM CHLORIDE 0.9% 250 ML IV ONE (21:59)
[2017-08-06] MEDS: oxyCODONE 5 MG TABLET PO SCH ×5 (02:43→16:57)
[2017-08-06] MEDS: metroNIDAZOLE 500 MG/100 ML 500 MG/100 ML BAG IV SCH ×2 (02:44→14:17)
[2017-08-06] MEDS: AMPICILLIN 2 GM in SODIUM CHLORIDE 0.9% MINIBAG 100 ML IV SCH (03:41)
[2017-08-06] MEDS: ACETAMINOPHEN 500 MG TABLET PO SCH ×2 (06:28→14:16)
[2017-08-06] MEDS: CLINDAMYCIN 900 MG/50 ML 50 ML IV SCH ×2 (06:30→12:56)
[2017-08-06] MEDS: SODIUM CHLORIDE FLUSH 0.9% 10 ML SYRINGE IVP SCH ×2 (06:31→10:22)
[2017-08-06] MEDS: CELECOXIB 100 MG CAPSULE PO SCH (08:34)
[2017-08-06] MEDS ORDERED: metroNIDAZOLE 500 MG/100 ML 500 MG/100 ML BAG IV SCH (09:00)
--- NOTE | 2017-08-06 10:19 | PROVIDER PROGRESS NOTE ---
Subjective - Prog Note Date Prog Note Date: 08/06/17 Prog Note Time: 10:17 - Subjective Pt reports feeling: Improved Subjective: Patient bed. Ambulating and tolerating a regular diet. Urinating without difficulty. No overnight events. No vaginal bleeding. Patient still reports pain at a 5. Likes Celebrex and oxycodone combination. Would like to go home by 4 PM today. Wants to go to class tomorrow. Has CADA friends coming to see her today. Understands she needs to take antibiotics after her hospital stay here. Objective - Vital Signs/Intake & Output Vital Signs: Vital Signs x48h Temp Pulse Resp BP Pulse Ox 08/06/17 07:30 98.4 F 70 18 109/63 98 08/06/17 05:44 99.1 F 62 16 112/57 L 100 Intake & Output: Intake & Output 08/03/17 08/04/17 08/05/17 08/06/17 23:59 23:59 23:59 23:59 Intake Total 261 3821 1450 Balance 261 3821 1450 - Objective General Appearance: positive: No acute distress Eyes Bilateral: positive: Normal inspection Abdomen: positive: Non-tender Comments/Other: Female exam: Mild cervical motion tenderness Right adnexal tenderness - Lab Results Fish Bones: 08/04/17 17:00 08/04/17 17:00 Assessment/Plan - Problem List (1) Tubo-ovarian abscess Impression: 32 yo with right TOA. Improving symptoms. Patient on >36 hours IV antibiotics. Recommend to patient to stay longer until resolution of pain. She desires to go home so she may attend class tomorrow. Patient willing to stay until 6 PM. Will start patient on PO doxycycline. Rx doxycycline 100 mg BID x 14 days sent to [facility] in [place]. Also Rx for motrin. Handwritten Rx for oxycodone. Patient to follow up with me in a week. If antibiotics do not resolve the TOA she will require surgery for drainage of the abscess. Patient made aware of this. Dictation summary: [id number]
[2017-08-06] MEDS ORDERED: DOXYCYCLINE 100 MG TABLET PO SCH (11:00)
[2017-08-06 17:19] VITALS: BP 127/70
--- NOTE | 2017-08-07 07:10 | DISCHARGE SUMMARY ---
DATE OF ADMISSION: 08/04/2017 DATE OF DISCHARGE: 08/06/2017 DIAGNOSES ON ADMISSION 1. A 32-year-old G6, P3-0-3-3. 2. Right tubo-ovarian abscess. DIAGNOSES ON DISCHARGE 1. A 32-year-old G6, P3-0-3-3. 2. Clinically resolving right tubo-ovarian abscess. HISTORY OF PRESENT ILLNESS: The patient is a patient of [facility] who presented to the emergency room on 08/04/2017. She was actually stopping by the laboratory to get her hepatitis C serology screening. Since she was in the laboratory, she decided to come to the emergency department and have her abdominal pain evaluated. The patient has recently been diagnosed with gonorrhea and treated at least twice for this. On examination, she had cervical motion tenderness. The ultrasound revealed a right corpus luteum measuring 2.9 x 1.7 x 2.2 cm. However, after I have reviewed the ultrasound studies, I question that it is a corpus luteum and thinking it is more of a tubo-ovarian abscess. Because of this, the patient was admitted to the hospital. She was afebrile and did not have an elevated white count. She was started on IV ampicillin, clindamycin and gentamicin. She did have a side effect from the ampicillin of having a puffy face. This was resolved after cessation of ampicillin as well as giving her Benadryl. Clinically, Maria Eugenia is improving. On today's repeat examination, she no longer has cervical motion tenderness, but does have some amount of right adnexal tenderness. I encouraged her that perhaps she should stay longer until we have complete resolution of her right adnexal tenderness. The patient, however, is quite worried about missing her CADA class tomorrow and would prefer to be discharged to home today. I feel it is probably reasonable after she has so far received at least 36 hours of IV antibiotics. We will go ahead and start her on outpatient doxycycline 100 mg 1 tab p.o. b.i.d. in the hospital before she leaves. A prescription for 14 days has been faxed to [facility] in [place], [place]. In addition, I have sent prescriptions for Motrin and Colace to the same pharmacy for her recovery. Handwritten prescription for oxycodone will be given to her for any breakthrough pain that she may have. I explained to her that should the antibiotic treatment fail, she will need to be required to have surgery, most likely laparoscopic surgery with possible drainage of the abscess. It is also possible that she may have to have a salpingo-oophorectomy in order to resolve the tubo-ovarian abscess. Her hepatitis C screen has come back negative. The patient is to follow up with me at [facility] within the week. I am concerned that due to her failed outpatient treatment of gonorrhea that she may have a resistant form to the cephalosporins. TD: 08/07/2017 08:09 MTDD
== END 2017-08-06 17:37 | disposition home or self-care (01) ==
LOC: ED 12:17 → OBS 17:33
PROVIDERS: ADMIT Obstetrics & Gynecology; ATTEND Obstetrics & Gynecology
DX: N70.93 Salpingitis and oophoritis, unspecified (principal); N73.9 Female pelvic inflammatory disease, unspecified; R22.0 Localized swelling, mass and lump, head; T36.0X5A Adverse effect of penicillins, initial encounter; Y92.239 Unspecified place in hospital as the place of occurrence of the external cause; F32.9 Major depressive disorder, single episode, unspecified; F41.9 Anxiety disorder, unspecified; F15.11 Other stimulant abuse, in remission; F10.11 Alcohol abuse, in remission; F19.11 Other psychoactive substance abuse, in remission; Z86.19 Personal history of other infectious and parasitic diseases; Z97.5 Presence of (intrauterine) contraceptive device; Z86.001 Personal history of in-situ neoplasm of cervix uteri; Z88.0 Allergy status to penicillin; Z91.410 Personal history of adult physical and sexual abuse; Z11.3 Encounter for screening for infections with a predominantly sexual mode of transmission
CPT/HCPCS: 36415; 76830; 76856; 80053; 80170; 81001; 81025; 83690; 85025; 86803; 87210; 87220; 87491; 87591; 96365; 96366; 96367; 96368; 96375; 99284; 99285; A9270; G0378; J1170; J2060; 81003; 87086; 96374; 99283

== ENCOUNTER 2017-08-25 15:12 | Emergency (ER) | payer MEDICAID ==
[2017-08-25 15:34] VITALS: BP 116/95
[2017-08-25] MEDS ORDERED: SODIUM CHLORIDE 0.9% 1,000 ML IV ONE (16:45)
[2017-08-25] MEDS ORDERED: HYDROmorphone 1 MG/ML SYRINGE IVP STA ×2 (16:45→18:16)
[2017-08-25] MEDS ORDERED: ONDANSETRON 4 MG/2 ML VIAL IVP STA (16:46)
[2017-08-25 16:47] LABS: BILIRUBIN,URINE NEGATIVE (NEGATIVE); GLUCOSE, URINE (UA) NEGATIVE (NEGATIVE); KETONES,URINE (UA) NEGATIVE (NEGATIVE); LEUKOCYTE ESTERASE, URINE TRACE (NEGATIVE); NITRITE,URINE NEGATIVE (NEGATIVE); OCCULT BLOOD,URINE LARGE (NEGATIVE); PROTEIN,URINE NEGATIVE (NEGATIVE); UROBILINOGEN,URINE 0.2 (NORMAL) E.U./dL (NORMAL)
[2017-08-25 16:49] LABS: CLARITY,URINE CLEAR (CLEAR); HCG UR QUAL NEGATIVE
[2017-08-25 17:03] LABS: BACTERIA,URINE Rare /HPF (None Seen); MUCUS,URINE Moderate Strands; SQUAMOUS EPITHELIAL CELL,UR MANY Squamous (<= Few)
[2017-08-25 17:16] LABS: BASOPHILS # (AUTO) 0.1 10^3/uL (0.0-0.1); BASOPHILS % (AUTO) 1.3 %; EOSINOPHILS # (AUTO) 0.2 10^3/uL (0.0-0.7); EOSINOPHILS % (AUTO) 4.3 %; HGB - HEMOGLOBIN 13.3 g/dL (12.0-16.0); LYMPHOCYTES # (AUTO) 1.2 10^3/uL (1.5-3.5); LYMPHOCYTES % (AUTO) 26.5 %; MEAN CORPUSCULAR HEMOGLOBIN 31.5 pg (27.0-31.0); MEAN CORPUSCULAR HGB CONC 33.4 g/dL (32.0-36.0); MEAN CORPUSCULAR VOLUME 94.4 fL (81.0-99.0); MONOCYTES # (AUTO) 0.4 10^3/uL (0.0-1.0); MONOCYTES % (AUTO) 8.7 %; NEUTROPHILS # (AUTO) 2.6 10^3/uL (1.5-6.6); NEUTROPHILS % (AUTO) 59.2 %; PLT - PLATELET COUNT 240 10^3/uL (130-450); RED BLOOD COUNT 4.22 10^6/uL (4.20-5.40); WHITE BLOOD COUNT 4.5 x10^3/uL (4.8-10.8)
[2017-08-25] MEDS ORDERED: KETOROLAC 60 MG/2 ML VIAL IVP STA (17:40)
[2017-08-25 17:43] LABS: ALBUMIN 4.6 g/dL (3.2-5.5); ALBUMIN/GLOBULIN RATIO 1.8 (1.0-2.2); BILIRUBIN,TOTAL 0.7 mg/dL (0.2-1.0); CALCIUM 9.3 mg/dL (8.5-10.3); CREATININE 0.9 mg/dL (0.4-1.0); TOTAL PROTEIN 7.1 g/dL (6.7-8.2)
[2017-08-25] MEDS ORDERED: LORazepam 2 MG/ML VIAL IVP STA (18:34)
--- NOTE | 2017-08-25 18:38 | Ultrasound Report ---
EXAM: PELVIC ULTRASOUND EXAM DATE: 08/25/2017 06:20 PM. CLINICAL HISTORY: Pelvic pain; recent right tubo-ovarian abscess. COMPARISON: 08/04/2017. TECHNIQUE: Realtime transabdominal pelvic scan performed to identify the uterus and adnexa and as an overview of other pelvic structures, followed by transvaginal scan to provide greater detail of the u terus and adnexa, with static image documentation. FINDINGS: Uterus: 5.7 x 3.8 x 4.4 cm, volume 49.2 cc. Retroverted position. Normal overall size and echotexture . Masses: None. Endometrium: 2 mm. Normal. Cervix: Unremarkable. Right Ovary: 3.0 x 2.4 x 1.9 cm, volume 7.1 cc. Normal echotexture and color Doppler blood flow. Left Ovary: 2.8 x 1.5 x 1.8 cm, volume 3.9 cc. Normal echotexture and color Doppler blood flow. Free Fluid: None. Other: None. IMPRESSION: Normal pelvic ultrasound. [facility] Referring Provider Line: [phone] SITE ID: [id number]
--- NOTE | 2017-08-25 18:43 | ED Physician Documentation ---
PD HPI ABD PAIN - Stated complaint Stated Complaint: ABD PX - Chief complaint Chief Complaint: Abd Pain - History obtained from History obtained from: Patient - History of Present Illness Recently seen: Admitted (Hospitalized 3 weeks ago with right tubo-ovarian abscess.) - Additional information Additional information: The patient is a 32-year-old female with history of right tubo-ovarian abscess, hospitalized 3 weeks ago, who presents with lower abdominal pain radiating to her back. She finished antibiotics and pain medication yesterday, and has had increasing abdominal/pelvic pain since that time. She describes it as a burning pain that is getting progressively worse. She reports associated nausea , without vomiting. She denies fever or dysuria. She has noticed scant vaginal bleeding and discharge. 3 weeks ago she was hospitalized for right tubo-ovarian abscess, and treatment included clindamycin, ampicillin, and gentamicin. She was discharged on doxycycline, which she completed yesterday. She had been taking Percocet, 3 or 4 tablets per day until yesterday. She was last seen by her flake miller helper 4 days ago, and her next scheduled appointment is 3 weeks from now. Review of Systems Constitutional: denies: Fever Nose: denies: Congestion Throat: denies: Sore throat Cardiac: denies: Chest pain / pressure Respiratory: denies: Dyspnea, Cough GI: reports: Abdominal Pain, Nausea. denies: Vomiting, Diarrhea : reports: Discharge (scant), Control (IUD). denies: Dysuria Skin: denies: Rash Musculoskeletal: denies: Extremity pain Neurologic: denies: Headache PD PAST MEDICAL HISTORY - Past Medical History Cardiovascular: None Respiratory: None Neuro: None Endocrine/Autoimmune: None GI: None INWEAVER: Other (Tubo-ovarian abscess.) : None HEENT: None Psych: Depression, Anxiety, Eating disorder Musculoskeletal: None Derm: None - Past Surgical History Past Surgical History: Yes /INWEAVER: Dilation and currettage, Other (Surgical termination of 3.) - Present Medications Home Medications: Ambulatory Orders Medication Instructions Recorded Confirmed Topiramate [Topamax] 50 mg PO QPM 06/01/17 08/04/17 Clonidine HCl [Catapres] 0.2 mg PO DAILY 07/09/17 08/04/17 Fluoxetine HCl [Fluoxetine HCl] 80 mg PO DAILY 08/04/17 08/04/17 Ibuprofen 600 mg PO BID 08/04/17 08/04/17 clonazePAM [Clonazepam] 1 mg PO QID PRN 08/04/17 08/04/17 traZODone [Desyrel] 50 mg PO QPM 08/04/17 08/04/17 oxyCODONE [Roxicodone] 5 mg PO Q4-6H PRN #15 tablet 08/25/17 - Allergies Allergies/Adverse Reactions: Allergies Allergy/AdvReac Type Severity Reaction Status Date / Time Penicillins Allergy Severe Hives Verified 08/25/17 15:33 - Social History Does the pt smoke?: No Smoking Status: Never smoker Does the pt drink ETOH?: No Does the pt have substance abuse?: Yes - Immunizations Immunizations are current?: Yes - POLST Patient has POLST: No PD ED PE NORMAL - Vitals Vital signs reviewed: Yes (normal) - General General: Alert and oriented X 3, Well developed/nourished, Other (Tearful, and anxious appearing.) - HEENT HEENT: Atraumatic, Moist mucous membranes, Pharynx benign - Neck Neck: No adenopathy - Cardiac Cardiac: RRR, No murmur - Respiratory Respiratory: No respiratory distress, Clear bilaterally - Abdomen Abdomen: Normal bowel sounds, Soft, No organomegaly, Other (Tenderness to palpation in the suprapubic region and right lower quadrant, without rebound or guarding.) - Back Back: No CVA TTP - Derm Derm: No rash - Extremities Extremities: No edema, No calf tenderness / cord - Neuro Neuro: Alert and oriented X 3, No motor deficit, No sensory deficit Results - Vitals Vitals: Vital Signs - 24 hr 08/25/17 15:30 Temperature 37.1 C Heart Rate 86 Respiratory 20 Rate Blood Pressure 116/95 H O2 Saturation 99 Oxygen O2 Source Room air - Labs Labs: Laboratory Tests 08/25/17 08/25/17 08/25/17 16:41 17:05 17:05 WBC 4.5 L RBC 4.22 Hgb 13.3 Hct 39.9 MCV 94.4 MCH 31.5 H MCHC 33.4 RDW 13.0 Plt Count 240 MPV 7.0 L Neut # 2.6 Lymph # 1.2 L Hardin # 0.4 Eos # 0.2 Baso # 0.1 Absolute Nucleated RBC 0.00 Nucleated RBC % 0.0 Sodium 137 Potassium 3.6 Chloride 100 L Carbon Dioxide 24 Anion Gap 13.0 BUN 10 Creatinine 0.9 Estimated GFR (MDRD) 73 L Glucose 102 H Calcium 9.3 Total Bilirubin 0.7 AST 66 H ALT 20 Alkaline Phosphatase 52 Total Protein 7.1 Albumin 4.6 Globulin 2.5 Albumin/Globulin Ratio 1.8 Lipase 61 H Urine Color YELLOW Urine Clarity CLEAR Urine pH 6.0 Ur Specific Stewart 1.020 Urine Protein NEGATIVE Urine Glucose (UA) NEGATIVE Urine Ketones NEGATIVE Urine Occult Blood LARGE H Urine Nitrite NEGATIVE Urine Bilirubin NEGATIVE Urine Urobilinogen 0.2 (NORMAL) Ur Leukocyte Esterase TRACE H Urine RBC 11-25 H Urine WBC 0-3 Ur Squamous Epith Cells MANY Squamous H Urine Bacteria Rare Urine Mucus Moderate Strands Ur Microscopic Review INDICATED Urine Culture Comments NOT INDICATED Urine HCG, Qual NEGATIVE - Rads (name of study) Pelvic U/S Radiology: Prelim report reviewed, EMP read contemporaneously, See rad report ( Normal pelvic ultrasound.) PD MEDICAL DECISION MAKING - ED course Complexity details: reviewed old records, reviewed results, re-evaluated patient , considered differential, d/w patient, d/w fundraising consultant ED course: The patient presents with recurrent pelvic pain following 3 weeks of antibiotic treatment after diagnosis of right tubo-ovarian abscess. She is afebrile, with normal white count of 4.5. Pelvic ultrasound is completely normal, with no evidence of recurrent abscess. Urine test is negative, making ectopic extremely unlikely. Urinalysis does not suggest urinary tract infection. I doubt appendicitis. While smoldering pelvic inflammatory disease remains a consideration, I suspect part of the patient's symptoms are exacerbated by abrupt cessation of narcotic pain medication. Treatment in the emergency department included administration of normal saline 1 L IV, hydromorphone 1 mg IV, Zofran 4 mg IV, followed by ketorolac 30 mg IV, an additional 1 mg hydromorphone IV, and lorazepam 1 mg IV. I discussed her presentation and laboratory and ultrasound results with Dr. Patton, who agrees with short course of narcotic pain medication and urgent outpatient follow-up in women's [facility] care clinic. She is being discharged with prescription for Percocet, 15 tablets. I discussed with her and her roommate the results of her workup, importance of urgent outpatient follow-up, as well as potentially worrisome signs or symptoms that should prompt reevaluation in the emergency department. Departure - Departure Disposition: 01 Home, Self Care Clinical Impression: Pelvic pain Condition: Stable Instructions: ED Pelvic Pain [facility] Follow-Up: Anneliese Gregory DO [Provider Admit Priv/Credential] - Prescriptions: oxyCODONE [Roxicodone] 5 mg PO Q4-6H PRN #15 tablet PRN Reason: Pain Comments: You can continue using ibuprofen as needed for pelvic pain. You can also use oxycodone as prescribed if needed for pain. Follow up with your flake miller helper. Call on Monday for follow-up appointment. Return to the emergency department if you develop increasing pain, or otherwise worsening symptoms. Discharge Date/Time: 08/25/17 19:38
== END 2017-08-25 19:38 | disposition home or self-care (01) ==
LOC: ED 15:12
DX: R10.2 Pelvic and perineal pain (principal); Z87.42 Personal history of other diseases of the female genital tract; Z87.59 Personal history of other complications of pregnancy, childbirth and the puerperium; Z97.5 Presence of (intrauterine) contraceptive device
CPT/HCPCS: 36415; 76830; 76856; 80053; 81001; 81025; 83690; 85025; 96361; 96374; 96375; 96376; 99283; J1170; J2060; 81003; 87086

== ENCOUNTER 2017-10-16 14:26 | Emergency (ER) | payer MEDICAID ==
[2017-10-16 15:44] LABS: BILIRUBIN,URINE NEGATIVE (NEGATIVE); GLUCOSE, URINE (UA) NEGATIVE (NEGATIVE); KETONES,URINE (UA) NEGATIVE (NEGATIVE); LEUKOCYTE ESTERASE, URINE NEGATIVE (NEGATIVE); NITRITE,URINE NEGATIVE (NEGATIVE); OCCULT BLOOD,URINE SMALL (NEGATIVE); PH,URINE 6.5 PH (5.0-7.5); PROTEIN,URINE NEGATIVE (NEGATIVE); UROBILINOGEN,URINE 0.2 (NORMAL) E.U./dL (NORMAL)
[2017-10-16 15:47] LABS: CLARITY,URINE CLEAR (CLEAR); HCG UR QUAL NEGATIVE
[2017-10-16 15:55] LABS: BACTERIA,URINE Few /HPF (None Seen); RBC,URINE 0-5 /HPF (0-5); SQUAMOUS EPITHELIAL CELL,UR MANY Squamous (<= Few)
[2017-10-16] MEDS ORDERED: SODIUM CHLORIDE 0.9% 1,000 ML IV ONE (16:12)
[2017-10-16] MEDS ORDERED: KETOROLAC 60 MG/2 ML VIAL IVP STA (16:12)
--- NOTE | 2017-10-16 16:14 | ED Physician Documentation ---
History of Present Illness - Stated complaint Stated Complaint: FEVER - Chief complaint Chief Complaint: Fever - Additonal information Additional information: hx from pt 32 f states she has had recurrent PID recently admitted for ab resistant PID and R TOA, managed medically no surgery to ER today for fever, myalgias, sore throat congestion nausea pelvic pain discharge and urinary hesitancy X 4 days Review of Systems Constitutional: reports: Fever, Chills, Myalgias, Fatigue Nose: reports: Congestion Throat: reports: Sore throat Cardiac: reports: Chest pain / pressure Respiratory: reports: Dyspnea. denies: Cough GI: reports: Abdominal Pain, Nausea : reports: Hesitancy, Discharge Skin: denies: Rash Neurologic: reports: Generalized weakness Endocrine: denies: Easy bruising / bleeding Immunocompromised: denies: Immunocompromised PD PAST MEDICAL HISTORY - Past Medical History Cardiovascular: None Respiratory: None Neuro: None Endocrine/Autoimmune: None GI: None COMB TENDER: Other : None HEENT: None Psych: Depression, Anxiety, Eating disorder Musculoskeletal: None Derm: None - Past Surgical History Past Surgical History: Yes /COMB TENDER: Dilation and currettage, Other - Present Medications Home Medications: Ambulatory Orders Medication Instructions Recorded Confirmed Topiramate [Topamax] 50 mg PO QPM 06/01/17 08/04/17 Clonidine HCl [Catapres] 0.2 mg PO DAILY 07/09/17 08/04/17 Fluoxetine HCl [Fluoxetine HCl] 80 mg PO DAILY 08/04/17 08/04/17 Ibuprofen 600 mg PO BID 08/04/17 08/04/17 clonazePAM [Clonazepam] 1 mg PO QID PRN 08/04/17 08/04/17 traZODone [Desyrel] 50 mg PO QPM 08/04/17 08/04/17 oxyCODONE [Roxicodone] 5 mg PO Q4-6H PRN #15 tablet 08/25/17 Doxycycline Hyclate 100 mg PO BID #20 capsule 10/16/17 Ibuprofen [Motrin] 400 mg PO Q6H PRN #30 tablet 10/16/17 - Allergies Allergies/Adverse Reactions: Allergies Allergy/AdvReac Type Severity Reaction Status Date / Time Penicillins Allergy Severe Hives Verified 08/25/17 15:33 - Social History Does the pt smoke?: No Smoking Status: Former smoker Does the pt drink ETOH?: No Does the pt have substance abuse?: Yes Substance Use and Type: Marijuana - Immunizations Immunizations are current?: Yes - POLST Patient has POLST: No PD ED PE NORMAL - Vitals Vital signs reviewed: Yes - General General: Alert and oriented X 3 - HEENT HEENT: PERRL, Moist mucous membranes. No: Pharynx benign (erythema and small exudate) - Neck Neck: Supple, no meningeal sign - Cardiac Cardiac: RRR - Respiratory Respiratory: No respiratory distress, Clear bilaterally - Abdomen Abdomen: Soft, Other (lower abd TTP s peritoneal signs) - Female Female : Pie Crust Mixer present (Milena), Other (no external lesions, + purulent dc, + CMT, cx sent) - Derm Derm: Normal color - Neuro Neuro: Alert and oriented X 3 Results - Vitals Vitals: Vital Signs - 24 hr 10/16/17 10/16/17 14:46 17:45 Temperature 38.1 C H 37.4 C Heart Rate 93 71 Respiratory 18 18 Rate Blood Pressure 149/101 H 146/92 H O2 Saturation 99 99 Oxygen O2 Source Room air - Labs Labs: Laboratory Tests 10/16/17 10/16/17 10/16/17 15:15 15:40 16:00 WBC RBC Hgb Hct MCV MCH MCHC RDW Plt Count MPV Neut # Lymph # Fallon # Eos # Baso # Absolute Nucleated RBC Nucleated RBC % Sodium Potassium Chloride Carbon Dioxide Anion Gap BUN Creatinine Estimated GFR (MDRD) Glucose Lactic Acid Calcium Urine Color YELLOW Urine Clarity CLEAR Urine pH 6.5 Ur Specific [place] <=1.005 Urine Protein NEGATIVE Urine Glucose (UA) NEGATIVE Urine Ketones NEGATIVE Urine Occult Blood SMALL H Urine Nitrite NEGATIVE Urine Bilirubin NEGATIVE Urine Urobilinogen 0.2 (NORMAL) Ur Leukocyte Esterase NEGATIVE Urine RBC 0-5 Urine WBC 0-3 Ur Squamous Epith Cells MANY Squamous H Urine Bacteria Few Ur Microscopic Review INDICATED Urine Culture Comments NOT INDICATED Urine HCG, Qual NEGATIVE Influenza A (Rapid) Negative Influenza B (Rapid) Negative Influenza Types A,B Ag - Group A Strep Rapid Negative 10/16/17 10/16/17 10/16/17 17:42 17:42 17:42 WBC 6.1 RBC 4.32 Hgb 13.8 Hct 41.1 MCV 95.1 MCH 31.9 H MCHC 33.6 RDW 15.1 H Plt Count 188 MPV 7.2 L Neut # 4.8 Lymph # 0.7 L [place]on # 0.5 Eos # 0.0 Baso # 0.0 Absolute Nucleated RBC 0.01 Nucleated RBC % 0.2 Sodium 132 L Potassium 3.5 Chloride 102 Carbon Dioxide 22 Anion Gap 8.0 BUN 7 Creatinine 0.7 Estimated GFR (MDRD) 98 Glucose 95 Lactic Acid 0.9 Calcium 8.6 Urine Color Urine Clarity Urine pH Ur Specific [place] Urine Protein Urine Glucose (UA) Urine Ketones Urine Occult Blood Urine Nitrite Urine Bilirubin Urine Urobilinogen Ur Leukocyte Esterase Urine RBC Urine WBC Ur Squamous Epith Cells Urine Bacteria Ur Microscopic Review Urine Culture Comments Urine HCG, Qual Influenza A (Rapid) Influenza B (Rapid) Influenza Types A,B Ag Group A Strep Rapid - Rads (name of study) pelvic sono Radiology: See rad report (hemorrhagic L ovarian cyst, nl uterus, nl R ovary, probable L ovarian hemorrhagic cyst) PD MEDICAL DECISION MAKING - ED course ED course: pt appears to have recurrent PID d/w rads and he feels confident hem cyst not TOA she has been admitted for similar in the past today her sx are improved with IVF and toradol given no TOA feel safe to trial dc on ab at home given rocephin in ED and then doxy which is what she was dced on after inpt stay Departure - Departure Disposition: 01 Home, Self Care Clinical Impression: PID (acute pelvic inflammatory disease) Condition: Good Instructions: ED PID Follow-Up: Anneliese Gregory DO [Provider Admit Priv/Credential] - (within 48 hr for a recheck) Prescriptions: Doxycycline Hyclate 100 mg PO BID #20 capsule Ibuprofen [Motrin] 400 mg PO Q6H PRN #30 tablet PRN Reason: Pain Comments: The flu and strep swabs were negative You do not have a urine infection You are not The ultrasound shows you have a bleeding cyst on the left ovary but no abscess - and the IUD is in place And your exam suggests you have PID again So we have started you on antibiotics. With your history of complicated and resistant infections, close follow up with Dr Gregory is very very important Motrin and tylenol as neded for pain and fever take the antibiotics as directed Return if worse
--- NOTE | 2017-10-16 17:49 | Ultrasound Preliminary Report ---
Exam: US PELVIC W/TRANSVAG+DOPPLER COMP IMPRESSION: 1. Normal uterus and endometrium with IUD appropriately positioned. 2. Unremarkable right adnexa. 3. Probable left hemorrhagic ovarian cyst. Consider repeat ultrasound in 6-12 weeks to assess for res olution. [facility] SITE ID: [id number]
[2017-10-16 17:50] LABS: BASOPHILS % (AUTO) 0.4 %; HGB - HEMOGLOBIN 13.8 g/dL (12.0-16.0); LYMPHOCYTES # (AUTO) 0.7 10^3/uL (1.5-3.5); LYMPHOCYTES % (AUTO) 11.9 %; MEAN CORPUSCULAR HEMOGLOBIN 31.9 pg (27.0-31.0); MEAN CORPUSCULAR HGB CONC 33.6 g/dL (32.0-36.0); MEAN CORPUSCULAR VOLUME 95.1 fL (81.0-99.0); MEAN PLATELET VOLUME 7.2 fL (7.9-10.8); MONOCYTES # (AUTO) 0.5 10^3/uL (0.0-1.0); MONOCYTES % (AUTO) 8.6 %; NEUTROPHILS # (AUTO) 4.8 10^3/uL (1.5-6.6); NEUTROPHILS % (AUTO) 79.1 %; PLT - PLATELET COUNT 188 10^3/uL (130-450); RED BLOOD COUNT 4.32 10^6/uL (4.20-5.40); RED CELL DISTRIBUTION WIDTH 15.1 % (12.0-15.0); WHITE BLOOD COUNT 6.1 x10^3/uL (4.8-10.8)
--- NOTE | 2017-10-16 17:52 | Ultrasound Report ---
EXAM: PELVIC ULTRASOUND EXAM DATE: 10/16/2017 05:20 PM. CLINICAL HISTORY: Fever pelvic pain recent PID and tubo-ovarian abscess. COMPARISON: Pelvic ultrasound 08/25/2017. TECHNIQUE: Realtime transabdominal pelvic scan performed to identify the uterus and adnexa and as an overview of other pelvic structures, followed by transvaginal scan to provide greater detail of the u terus and adnexa, with static image documentation. FINDINGS: Uterus: 7.7 x 3.2 x 5.5 cm, volume 70 cc. Retroflexed position. Normal overall size and echotexture. Masses: None. Endometrium: 2.6 mm. IUD appears appropriately positioned. Cervix: Unremarkable. Right Ovary: 2.5 x 1.3 x 2.2 cm, volume 3.7 cc. Normal echotexture and blood flow. Left Ovary: 4.8 x 2.3 x 3.1 cm, volume 17.8 cc. Normal echotexture and blood flow. A small cyst with layering debris and hemorrhagic cyst present measuring up to 2.9 cm. Free Fluid: Trace free fluid is likely physiologic. Other: None. IMPRESSION: 1. Normal uterus and endometrium with IUD appropriately positioned. 2. Unremarkable right adnexa. 3. Probable left hemorrhagic ovarian cyst. Consider repeat ultrasound in 6-12 weeks to assess for res olution. [facility] Referring Provider Line: [phone] SITE ID: [id number]
[2017-10-16 17:55] LABS: CALCIUM 8.6 mg/dL (8.5-10.3); CREATININE 0.7 mg/dL (0.4-1.0)
[2017-10-16] MEDS ORDERED: LIDOCAINE 1% 2 ML VIAL SUBQ ONE (18:59)
[2017-10-16] MEDS ORDERED: DOXYCYCLINE 100 MG TABLET PO STA (18:59)
[2017-10-16] MEDS ORDERED: cefTRIAXone 250 MG VIAL IM STA (18:59)
[2017-10-16 19:24] VITALS: BP 124/92
== END 2017-10-16 19:31 | disposition home or self-care (01) ==
LOC: ED 14:26
DX: N73.0 Acute parametritis and pelvic cellulitis (principal); N83.202 Unspecified ovarian cyst, left side; Z97.5 Presence of (intrauterine) contraceptive device; Z87.891 Personal history of nicotine dependence
CPT/HCPCS: 36415; 76830; 76856; 80048; 81001; 81025; 83605; 85025; 87040; 87070; 87210; 87275; 87276; 87430; 87491; 87591; 93975; 96361; 96372; 96374; 99283; A9270; 81003; 87086

== ENCOUNTER 2017-11-15 18:13 | Emergency (ER) | payer MEDICAID ==
[2017-11-15 18:38] LABS: BILIRUBIN,URINE NEGATIVE (NEGATIVE); GLUCOSE, URINE (UA) NEGATIVE (NEGATIVE); KETONES,URINE (UA) NEGATIVE (NEGATIVE); LEUKOCYTE ESTERASE, URINE NEGATIVE (NEGATIVE); NITRITE,URINE NEGATIVE (NEGATIVE); OCCULT BLOOD,URINE TRACE-INTA (NEGATIVE); PROTEIN,URINE NEGATIVE (NEGATIVE); UROBILINOGEN,URINE 0.2 (NORMAL) E.U./dL (NORMAL)
[2017-11-15 18:43] LABS: CLARITY,URINE CLOUDY (CLEAR); HCG UR QUAL NEGATIVE
[2017-11-15 19:05] LABS: BACTERIA,URINE None Seen /HPF (None Seen); RBC,URINE 0-5 /HPF (0-5); SQUAMOUS EPITHELIAL CELL,UR MANY Squamous (<= Few)
[2017-11-15] MEDS ORDERED: MORPHINE 10 MG/ML VIAL IVP STA (19:24)
[2017-11-15] MEDS ORDERED: ONDANSETRON 4 MG/2 ML VIAL IVP STA (19:24)
--- NOTE | 2017-11-15 19:26 | ED Physician Documentation ---
History of Present Illness - Stated complaint Stated Complaint: GLF/RIB PX - Chief complaint Chief Complaint: General - History obtained from History obtained from: Patient - History of Present Illness Timing: Other (She has a couple of issues that need to be addressed, about a week ago she fell, she [place] and fell onto a log with her right chest wall and has persistent and severe chest pain from that. Also that same day she ran into a grill and has top of the foot left foot pain. Finally she has recurrent PID in her fever and pelvic pain are back.) Review of Systems Ten Systems: 10 systems reviewed and negative Constitutional: denies: Fever, Chills Cardiac: denies: Chest pain / pressure, Palpitations Respiratory: denies: Dyspnea, Cough GI: reports: Abdominal Pain. denies: Nausea, Vomiting : reports: Discharge, Vaginal bleeding. denies: Dysuria PD PAST MEDICAL HISTORY - Past Medical History Cardiovascular: None Respiratory: None Neuro: None Endocrine/Autoimmune: None GI: None SHACTOR: Other : None HEENT: None Psych: Depression, Anxiety, Eating disorder Musculoskeletal: None Derm: None - Past Surgical History Past Surgical History: Yes /SHACTOR: Dilation and currettage, Other - Present Medications Home Medications: Ambulatory Orders Medication Instructions Recorded Confirmed Topiramate [Topamax] 50 mg PO QPM 06/01/17 08/04/17 Clonidine HCl [Catapres] 0.2 mg PO DAILY 07/09/17 08/04/17 Fluoxetine HCl [Fluoxetine HCl] 80 mg PO DAILY 08/04/17 08/04/17 clonazePAM [Clonazepam] 1 mg PO QID PRN 08/04/17 08/04/17 traZODone [Desyrel] 50 mg PO QPM 08/04/17 08/04/17 HYDROcod/ACETAM 5/325 [[place] 5/325] 1 - 2 ea PO Q6H PRN #7 tablet 11/15/17 - Allergies Allergies/Adverse Reactions: Allergies Allergy/AdvReac Type Severity Reaction Status Date / Time Penicillins Allergy Severe Hives Verified 08/25/17 15:33 - Social History Does the pt smoke?: No Smoking Status: Former smoker Does the pt drink ETOH?: No Does the pt have substance abuse?: Yes - Immunizations Immunizations are current?: Yes - POLST Patient has POLST: No PD ED PE NORMAL - Vitals Vital signs reviewed: Yes - General General: Alert and oriented X 3, No acute distress - HEENT HEENT: PERRL, EOMI - Neck Neck: Supple, no meningeal sign, No bony TTP - Cardiac Cardiac: RRR, No murmur, Other (Very tender right lateral chest wall over down, no concordant abdominal tenderness.) - Respiratory Respiratory: No respiratory distress, Clear bilaterally - Abdomen Abdomen: Soft, Non tender - 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 (Amada Cavazos RN), Other (There is a small amount of brown discharge, IUD strings are present, there is no significant cervical motion or bimanual or adnexal tenderness.) - Back Back: No CVA TTP, No spinal TTP - Derm Derm: Normal color, Warm and dry - Extremities Extremities: No deformity, No tenderness to palpate - Neuro Neuro: Alert and oriented X 3, Normal speech - Psych Psych: Normal mood, Normal affect Results - Vitals Vitals: Vital Signs - 24 hr 11/15/17 11/15/17 11/15/17 18:15 20:00 21:34 Temperature 37 C Heart Rate 79 63 70 Respiratory 20 18 16 Rate Blood Pressure 151/92 H 148/111 H 145/100 H O2 Saturation 98 76 L 100 Oxygen O2 Source Room air - Labs Labs: Microbiology 11/15/17 20:20 Wet Prep - Final Genital - Vaginal Laboratory Tests 11/15/17 11/15/17 11/15/17 18:25 19:54 19:54 WBC 7.9 RBC 4.19 L Hgb 13.7 Hct 40.5 MCV 96.7 MCH 32.6 H MCHC 33.8 RDW 15.5 H Plt Count 246 MPV 7.3 L Neut # 5.8 Lymph # 1.2 L [place] # 0.6 Eos # 0.1 Baso # 0.1 Absolute Nucleated RBC 0.00 Nucleated RBC % 0.0 Sodium 134 L Potassium 4.0 Chloride 101 Carbon Dioxide 25 Anion Gap 8.0 BUN 20 Creatinine 1.0 Estimated GFR (MDRD) 65 L Glucose 101 H Calcium 9.3 Total Bilirubin 0.4 AST 91 H ALT 25 Alkaline Phosphatase 79 Total Protein 7.4 Albumin 4.5 Globulin 2.9 Albumin/Globulin Ratio 1.6 Lipase 63 H Urine Color YELLOW Urine Clarity CLOUDY Urine pH 6.0 Ur Specific [place] 1.025 Urine Protein NEGATIVE Urine Glucose (UA) NEGATIVE Urine Ketones NEGATIVE Urine Occult Blood TRACE-INTA Urine Nitrite NEGATIVE Urine Bilirubin NEGATIVE Urine Urobilinogen 0.2 (NORMAL) Ur Leukocyte Esterase NEGATIVE Urine RBC 0-5 Urine WBC 0-3 Ur Squamous Epith Cells MANY Squamous H Urine Bacteria None Seen Ur Microscopic Review INDICATED Urine Culture Comments NOT INDICATED Urine HCG, Qual NEGATIVE - Rads (name of study) R ribs and L foot XR Radiology: EMP read contemporaneously (all neg) Pelvic sono Radiology: EMP read contemporaneously (normal) PD MEDICAL DECISION MAKING - ED course ED course: X-rays are negative, her pelvic exam suggests against recurrent PID at this time , she does have clue cells on wet prep but less than 20%. Follow-up with OB was advised. Departure - Departure Disposition: 01 Home, Self Care Clinical Impression: Pelvic pain Chest wall contusion Qualifiers: Encounter type: initial encounter Laterality: right Qualified Code(s): S20.211A - Contusion of right front wall of thorax, initial encounter Contusion of left foot Qualifiers: Encounter type: initial encounter Qualified Code(s): S90.32XA - Contusion of left foot, initial encounter Hypertension Qualifiers: Hypertension type: essential hypertension Qualified Code(s): I10 - Essential ( primary) hypertension Condition: Good Record reviewed to determine appropriate education?: Yes Instructions: ED Contusion Chest Wall Follow-Up: Anneliese Gregory, [Provider Admit Priv/Credential] - Within 3 Days Prescriptions: HYDROcod/ACETAM 5/325 [[place] 5/325] 1 - 2 ea PO Q6H PRN #7 tablet PRN Reason: Pain Comments: Take your blood pressure medicine when you get home. Return if worse. Do not drink or drive while taking narcotic pain medication. Note that many narcotic pain relievers also contain Tylenol/acetaminophen. Please ensure that your total dose of acetaminophen from all sources does not exceed 3 g (3000 mg) per day. You may get constipated while on this medication. Take a stool softener such as Colace twice a day while you are on it. Also add an [id number] laxative such as senna or MiraLAX on any day that you do not have a bowel movement. If you received a narcotic pain medication or sedative while in the emergency department, do not drive for the next 24 hours. Forms: Activity restrictions Discharge Date/Time: 11/15/17 21:49
--- NOTE | 2017-11-15 19:54 | XRAY Report ---
EXAM: RIGHT RIB RADIOGRAPHY EXAM DATE: 11/15/2017 07:45 PM. CLINICAL HISTORY: Foot and chest inj. COMPARISON: None. TECHNIQUE: 1 view of the chest and 2 views of the ribs. FINDINGS: Bones: Normal. No fracture or bone lesion. Lungs: No focal opacities. No pneumothorax. No pleural effusions. Mediastinum: Heart and mediastinal contours are unremarkable. Other: None. IMPRESSION: Normal chest and rib radiography. [facility] Referring Provider Line: [phone] SITE ID: [id number]
--- NOTE | 2017-11-15 19:55 | XRAY Report ---
EXAM: LEFT FOOT RADIOGRAPHY EXAM DATE: 11/15/2017 07:48 PM. CLINICAL HISTORY: Foot pain COMPARISON: None. TECHNIQUE: 3 views. FINDINGS: Bones: Normal. No fractures or bone lesions. Joints: Normal. No subluxations. Soft Tissues: Normal. No soft tissue swelling. IMPRESSION: Negative foot radiography. [facility] Referring Provider Line: [phone] SITE ID: [id number]
[2017-11-15 20:08] LABS: BASOPHILS # (AUTO) 0.1 10^3/uL (0.0-0.1); BASOPHILS % (AUTO) 0.7 %; EOSINOPHILS # (AUTO) 0.1 10^3/uL (0.0-0.7); EOSINOPHILS % (AUTO) 1.8 %; HGB - HEMOGLOBIN 13.7 g/dL (12.0-16.0); LYMPHOCYTES # (AUTO) 1.2 10^3/uL (1.5-3.5); LYMPHOCYTES % (AUTO) 15.8 %; MEAN CORPUSCULAR HEMOGLOBIN 32.6 pg (27.0-31.0); MEAN CORPUSCULAR HGB CONC 33.8 g/dL (32.0-36.0); MEAN CORPUSCULAR VOLUME 96.7 fL (81.0-99.0); MEAN PLATELET VOLUME 7.3 fL (7.9-10.8); MONOCYTES # (AUTO) 0.6 10^3/uL (0.0-1.0); MONOCYTES % (AUTO) 7.3 %; NEUTROPHILS # (AUTO) 5.8 10^3/uL (1.5-6.6); NEUTROPHILS % (AUTO) 74.4 %; PLT - PLATELET COUNT 246 10^3/uL (130-450); RED BLOOD COUNT 4.19 10^6/uL (4.20-5.40); RED CELL DISTRIBUTION WIDTH 15.5 % (12.0-15.0); WHITE BLOOD COUNT 7.9 x10^3/uL (4.8-10.8)
[2017-11-15 20:22] LABS: ALBUMIN 4.5 g/dL (3.2-5.5); ALBUMIN/GLOBULIN RATIO 1.6 (1.0-2.2); BILIRUBIN,TOTAL 0.4 mg/dL (0.2-1.0); CALCIUM 9.3 mg/dL (8.5-10.3); TOTAL PROTEIN 7.4 g/dL (6.7-8.2)
--- NOTE | 2017-11-15 21:34 | Ultrasound Preliminary Report ---
Exam: US PELVIC W/TRANSVAG+DOPPLER COMP IMPRESSION: Normal pelvic ultrasound. IUD appears appropriately positioned. [facility] SITE ID: [id number]
[2017-11-15 21:35] VITALS: BP 145/100
[2017-11-15] MEDS ORDERED: HYDROcod/ACET 5/325 Prepack 4 PO STA (21:37)
--- NOTE | 2017-11-15 21:39 | Ultrasound Report ---
EXAM: PELVIC ULTRASOUND EXAM DATE: 11/15/2017 08:53 PM. CLINICAL HISTORY: Pelvic pain. COMPARISON: 08/25/2017 and 10/16/2017. TECHNIQUE: Realtime transabdominal pelvic scan performed to identify the uterus and adnexa and as an overview of other pelvic structures, followed by transvaginal scan to provide greater detail of the u terus and adnexa, with static image documentation. FINDINGS: Uterus: 5.7 x 3.8 x 5.2 cm, volume 59 cc. Retroflexed position. Normal overall size and echotexture. Masses: None. Endometrium: 3 mm. IUD appears appropriately positioned. Cervix: Unremarkable. Right Ovary: 3.6 x 2.0 x 4.0 cm, volume 15 cc. Normal echotexture and blood flow. Left Ovary: 3.0 x 1.4 x 3.0 cm, volume 6 cc. Normal echotexture and blood flow. Previously demonstrat ed left ovarian cyst has resolved. Free Fluid: None. Other: None. IMPRESSION: Normal pelvic ultrasound. IUD appears appropriately positioned. [facility] Referring Provider Line: [phone] SITE ID: [id number]
== END 2017-11-15 21:49 | disposition home or self-care (01) ==
LOC: ED 18:13
DX: R10.2 Pelvic and perineal pain (principal); S20.211A Contusion of right front wall of thorax, initial encounter; S90.32XA Contusion of left foot, initial encounter; W18.30XA Fall on same level, unspecified, initial encounter; W22.09XA Striking against other stationary object, initial encounter; Y93.01 Activity, walking, marching and hiking; I10 Essential (primary) hypertension; Z87.891 Personal history of nicotine dependence
CPT/HCPCS: 36415; 76830; 76856; 80053; 81001; 81003; 81025; 83690; 85025; 87086; 87210; 87491; 87591; 93975; 96374; 99283

== ENCOUNTER 2017-11-26 21:24 | Emergency (ER) | payer MEDICAID ==
[2017-11-26 21:34] VITALS: BP 156/79
[2017-11-26 22:29] LABS: BILIRUBIN,URINE NEGATIVE (NEGATIVE); GLUCOSE, URINE (UA) NEGATIVE (NEGATIVE); KETONES,URINE (UA) NEGATIVE (NEGATIVE); LEUKOCYTE ESTERASE, URINE NEGATIVE (NEGATIVE); NITRITE,URINE NEGATIVE (NEGATIVE); OCCULT BLOOD,URINE SMALL (NEGATIVE); PH,URINE 5.5 PH (5.0-7.5); PROTEIN,URINE NEGATIVE (NEGATIVE); UROBILINOGEN,URINE 0.2 (NORMAL) E.U./dL (NORMAL)
[2017-11-26 22:42] LABS: CLARITY,URINE CLEAR (CLEAR); HCG UR QUAL NEGATIVE
[2017-11-26 22:43] LABS: WBC CLUMPS,URINE PRESENT
[2017-11-26 22:44] LABS: BACTERIA,URINE Few /HPF (None Seen); SQUAMOUS EPITHELIAL CELL,UR MANY Squamous (<= Few); YEAST,URINE PRESENT
[2017-11-26] MEDS ORDERED: CYCLOBENZAPRINE 10 MG Prepack 2 PO PRN (22:46)
[2017-11-26] MEDS ORDERED: DEXAMETHASONE 10 MG/ML VIAL PO STA (22:46)
[2017-11-26] MEDS ORDERED: FLUCONAZOLE 100 MG TABLET PO STA (22:46)
[2017-11-26] MEDS ORDERED: LIDOCAINE PATCH 5% TOP STA (22:46)
--- NOTE | 2017-11-26 22:56 | ED Physician Documentation ---
PD HPI NECK PAIN - Stated complaint Stated Complaint: NECK PX - Chief complaint Chief Complaint: General - History obtained from History obtained from: Patient - History of Present Illness Timing - onset: Yesterday Timing - details: Gradual onset, Still present Location: Upper, Left Quality: Pain, Spasm Associated symptoms: No: Fever, Weakness Worsened by: Movement, Lifting, Twisting, Palpation Similar symptoms before: No diagnosis Recently seen: Not recently seen - Additional information Additional information: Patient is a 32 year old female with multiple ED visits who is presenting to the emergency department for left sided neck pain. Patient states that it started a few days ago and has become progressively worse. patient states she didn't want to leave her new job so she worked a whole shift even thought she was in pain. patient also reports some white vaginal discharge and dysuria. 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 HEENT: None Psych: Depression, Anxiety, Eating disorder Musculoskeletal: None Derm: None - Past Surgical History Past Surgical History: Yes /GLASS CRUSHER: Dilation and currettage, Other - Present Medications Home Medications: Ambulatory Orders Medication Instructions Recorded Confirmed Topiramate [Topamax] 50 mg PO QPM 06/01/17 08/04/17 Clonidine HCl [Catapres] 0.2 mg PO DAILY 07/09/17 08/04/17 Fluoxetine HCl [Fluoxetine HCl] 80 mg PO DAILY 08/04/17 08/04/17 clonazePAM [Clonazepam] 1 mg PO QID PRN 08/04/17 08/04/17 traZODone [Desyrel] 50 mg PO QPM 08/04/17 08/04/17 HYDROcod/ACETAM 5/325 [[place] 5/325] 1 - 2 ea PO Q6H PRN #7 tablet 11/15/17 Cyclobenzaprine [Flexeril] 10 mg PO TID PRN #7 tablet 11/26/17 Lidocaine Patch 5% [Lidoderm Patch] 1 each TOP DAILY #14 patch 11/26/17 - Allergies Allergies/Adverse Reactions: Allergies Allergy/AdvReac Type Severity Reaction Status Date / Time Penicillins Allergy Severe Hives Verified 11/26/17 21:34 - Social History Does the pt smoke?: No Smoking Status: Never smoker Does the pt drink ETOH?: No Does the pt have substance abuse?: Yes - Immunizations Immunizations are current?: Yes - POLST Patient has POLST: No PD ED PE NORMAL - Vitals Vital signs reviewed: Yes - General General: Alert and oriented X 3, No acute distress, Well developed/nourished - HEENT HEENT: Atraumatic, Moist mucous membranes - Cardiac Cardiac: RRR - Respiratory Respiratory: No respiratory distress - Abdomen Abdomen: Soft - Derm Derm: Normal color, Warm and dry - Extremities Extremities: No deformity - Neuro Neuro: Alert and oriented X 3, double corner cutter 2-12 intact, No motor deficit, No sensory deficit, Normal speech Eye Opening: Spontaneous Motor: Obeys Commands Verbal: Oriented GCS Score: 15 PD ED PE EXPANDED - Neck Neck: Soft tissue TTP (tenderness and mild hypertonicity of left superior cervical parapsinal muscles) Results - Vitals Vitals: Vital Signs - 24 hr 11/26/17 21:26 Temperature 36.7 C Heart Rate 74 Respiratory 18 Rate Blood Pressure 156/79 H O2 Saturation 100 Oxygen O2 Source Room air - Labs Labs: Laboratory Tests 11/26/17 22:22 Urine Color YELLOW Urine Clarity CLEAR Urine pH 5.5 Ur Specific [place] 1.010 Urine Protein NEGATIVE Urine Glucose (UA) NEGATIVE Urine Ketones NEGATIVE Urine Occult Blood SMALL H Urine Nitrite NEGATIVE Urine Bilirubin NEGATIVE Urine Urobilinogen 0.2 (NORMAL) Ur Leukocyte Esterase NEGATIVE Urine RBC 11-25 H Urine WBC 4-5 Urine WBC Clumps PRESENT Ur Squamous Epith Cells MANY Squamous H Urine Bacteria Few Urine Yeast PRESENT Ur Microscopic Review INDICATED Urine Culture Comments NOT INDICATED Urine HCG, Qual NEGATIVE PD MEDICAL DECISION MAKING - ED course Complexity details: reviewed old records, reviewed results, re-evaluated patient , considered differential, d/w patient ED course: patient was seen and examined at bedside. Patient was in no distress. Urine was collected. there were no nitrates or leuk esterase but there was yeast. Patient was treated with diflucan, lidoderm patch, and toradol. patient required no further inpatient work up. No imaging was indicated at this time and patient was stable for discharge with outpatient follow up. Departure - Departure Disposition: 01 Home, Self Care Clinical Impression: Neck muscle strain, Yeast infection of the vagina Condition: Good Instructions: ED Sprain Strain Neck, ED Vaginal Infec Fungal Paige Follow-Up: Silva Phillip ARNP [Primary Care Provider] - Within 3 Days Prescriptions: Cyclobenzaprine [Flexeril] 10 mg PO TID PRN #7 tablet PRN Reason: Spasms Lidocaine Patch 5% [Lidoderm Patch] 1 each TOP DAILY #14 patch Comments: Your neck pain is likely secondary to a muscular strain. You should alternate between ice and heat. You can take motrin, tylenol and lidoderm patches for pain. You can use the flexeril for spasm. If you take the flexeril you cannot drive, work or operate heavy machinery while taking it. Your pelvic discharge is being caused by a yeast infection. You have been treated with diflucan and should treat the yeast. You can also use over the counter medications as well for symptom control. You should follow up with your doctor if symptoms persist. You may return to the emergency department at any time for new, worsening or uncontrollable symptoms.
== END 2017-11-26 23:02 | disposition home or self-care (01) ==
LOC: ED 21:24
DX: S16.1XXA Strain of muscle, fascia and tendon at neck level, initial encounter (principal); X58.XXXA Exposure to other specified factors, initial encounter; B37.3 Candidiasis of vulva and vagina
CPT/HCPCS: 81001; 81025; 99283; A9270; 81003; 87086

== ENCOUNTER 2018-01-09 12:06 | Emergency (ER) | payer MEDICAID ==
[2018-01-09 12:39] LABS: BILIRUBIN,URINE NEGATIVE (NEGATIVE); GLUCOSE, URINE (UA) NEGATIVE (NEGATIVE); KETONES,URINE (UA) NEGATIVE (NEGATIVE); LEUKOCYTE ESTERASE, URINE NEGATIVE (NEGATIVE); NITRITE,URINE NEGATIVE (NEGATIVE); OCCULT BLOOD,URINE TRACE-INTA (NEGATIVE); PH,URINE 6.5 PH (5.0-7.5); PROTEIN,URINE NEGATIVE (NEGATIVE); UROBILINOGEN,URINE 0.2 (NORMAL) E.U./dL (NORMAL)
[2018-01-09 12:41] LABS: CLARITY,URINE CLEAR (CLEAR); HCG UR QUAL NEGATIVE
--- NOTE | 2018-01-09 13:09 | ED Physician Documentation ---
PD HPI ABD PAIN - Stated complaint Stated Complaint: ABD PX - Chief complaint Chief Complaint: Abd Pain - History obtained from History obtained from: Patient - History of Present Illness Timing - onset: How many weeks ago (has had diarrhea for few weeks with discomfort lower abd/cramps. Noted some dysuria the past few days. Has had about 5-6 watery stools daily. She does feel sometimes like there is more to come out after going and strains to push out stool. Today she had a feeling of pain and pressure at umbilical area and feels a small lump there that is tender. ) Timing - details: Abrupt onset (of the umbilical area pain today), Gradual onset (of the diarrhea) Quality: Cramping, Aching, Pain. No: Fullness/distended Location: Periumbilical Improved by: Laying still Worsened by: Moving, Palpation. No: Breathing Associated symptoms: Nausea, Diarrhea, Loss of appetite. No: Fever, Vomiting, Melena, Hematochezia, Near syncope / syncope Similar symptoms before: Has not had sx before Recently seen: Not recently seen Review of Systems Constitutional: denies: Fever, Chills, Myalgias Nose: denies: Rhinorrhea / runny nose, Congestion Throat: denies: Sore throat Respiratory: denies: Cough GI: reports: Abdominal Pain, Nausea, Diarrhea. denies: Abdominal Swelling, Vomiting, Constipation, Bloody / black stool : reports: Dysuria. denies: Frequency, Discharge Skin: denies: Rash, Lesions Neurologic: denies: Near syncope PD PAST MEDICAL HISTORY - Past Medical History Cardiovascular: None Respiratory: None Endocrine/Autoimmune: None GI: None C[employer] EGGS: Other : None HEENT: None Psych: Depression, Anxiety, Eating disorder Musculoskeletal: None Derm: None - Past Surgical History Past Surgical History: Yes /C[employer] EGGS: Dilation and currettage, Other - Present Medications Home Medications: Ambulatory Orders Medication Instructions Recorded Confirmed Topiramate [Topamax] 50 mg PO QPM 06/01/17 08/04/17 Clonidine HCl [Catapres] 0.2 mg PO DAILY 07/09/17 08/04/17 Fluoxetine HCl [Fluoxetine HCl] 80 mg PO DAILY 08/04/17 08/04/17 clonazePAM [Clonazepam] 1 mg PO QID PRN 08/04/17 08/04/17 traZODone [Desyrel] 50 mg PO QPM 08/04/17 08/04/17 HYDROcod/ACETAM 5/325 [[place] 5/325] 1 - 2 ea PO Q6H PRN #7 tablet 11/15/17 Cyclobenzaprine [Flexeril] 10 mg PO TID PRN #7 tablet 11/26/17 Lidocaine Patch 5% [Lidoderm Patch] 1 each TOP DAILY #14 patch 11/26/17 Diphenoxylate/Atropine [Lomotil] 1 each PO QID PRN #15 tablet 01/09/18 Naproxen 375 mg PO BID #20 tablet 01/09/18 Tramadol HCl 50 mg PO Q6H PRN #20 tablet 01/09/18 - Allergies Allergies/Adverse Reactions: Allergies Allergy/AdvReac Type Severity Reaction Status Date / Time Penicillins Allergy Severe Hives Verified 11/26/17 21:34 - Social History Does the pt smoke?: No Smoking Status: Never smoker Does the pt drink ETOH?: No Does the pt have substance abuse?: Yes - Immunizations Immunizations are current?: Yes - POLST Patient has POLST: No PD ED PE NORMAL - Vitals Vital signs reviewed: Yes - General General: Alert and oriented X 3, No acute distress, Well developed/nourished - HEENT HEENT: Pharynx benign - Neck Neck: Supple, no meningeal sign, No adenopathy - Cardiac Cardiac: RRR, No murmur - Respiratory Respiratory: Clear bilaterally - Abdomen Abdomen: Normal bowel sounds, Soft, Non distended, No organomegaly, Other ( umbilical area with tenderness. There is small soft hernia that is tender but easily reduces. Small fingertip hernia defect felt. No inguinal tenderness. No distension nor diffuse tenderness. ) - Female Female : Deferred - Rectal Rectal: Deferred - Back Back: No CVA TTP - Derm Derm: Normal color, Warm and dry Results - Vitals Vitals: Vital Signs - 24 hr 01/09/18 01/09/18 12:18 14:27 Temperature 36.9 C 37.1 C Heart Rate 81 65 Respiratory 16 16 Rate Blood Pressure 143/97 H 150/113 H O2 Saturation 98 100 Oxygen O2 Source Room air - Labs Labs: Laboratory Tests 01/09/18 12:31 Urine Color YELLOW Urine Clarity CLEAR Urine pH 6.5 Ur Specific [place] 1.010 Urine Protein NEGATIVE Urine Glucose (UA) NEGATIVE Urine Ketones NEGATIVE Urine Occult Blood TRACE-INTA Urine Nitrite NEGATIVE Urine Bilirubin NEGATIVE Urine Urobilinogen 0.2 (NORMAL) Ur Leukocyte Esterase NEGATIVE Ur Microscopic Review NOT INDICATED Urine Culture Comments NOT INDICATED Urine HCG, Qual NEGATIVE PD MEDICAL DECISION MAKING - ED course Complexity details: considered differential (she is tender at umbilical area. No vomiting nor distension. I feel a small hernia that is tender but easily reducible. I don't suspect incarceration of the hernia. She has had diarrhea for over 3 weeks, so can start with stool culture/PCR to assess for bacterial. ) , d/w patient - Sepsis Event Vital Signs: Vital Signs - 24 hr 01/09/18 01/09/18 12:18 14:27 Temperature 36.9 C 37.1 C Heart Rate 81 65 Respiratory 16 16 Rate Blood Pressure 143/97 H 150/113 H O2 Saturation 98 100 Oxygen O2 Source Room air Departure - Departure Disposition: 01 Home, Self Care Clinical Impression: Diarrhea Qualifiers: Diarrhea type: presumed infectious Qualified Code(s): R19.7 - Diarrhea, unspecified Umbilical hernia Qualifiers: Obstruction and gangrene presence: without obstruction or gangrene Qualified Code(s): K42.9 - Umbilical hernia without obstruction or gangrene Condition: Stable Record reviewed to determine appropriate education?: Yes Instructions: ED Diet Vomiting Diarrhea, ED Hernia Inguinal Follow-Up: Silva Phillip ARNP [Primary Care Provider] - Prescriptions: Diphenoxylate/Atropine [Lomotil] 1 each PO QID PRN #15 tablet PRN Reason: Diarrhea Naproxen 375 mg PO BID #20 tablet Tramadol HCl 50 mg PO Q6H PRN #20 tablet PRN Reason: Pain Comments: We can do cultures on this 2 to see if there is a bacterial cause for the diarrhea. The results of this will take a day or 2. We can use some antidiarrheal medicine to help with that. It sounds like you stretched the umbilical ligaments and that is what is hurting right now. There is a small hernia in that area but it is reducible but just tender. Use some naproxen or ibuprofen 2-3 times a day and add Tylenol or tramadol if needed for pain. Rest for a day or 2 as it starts to heal up. Progress activity as able. Follow-up with your primary care for recheck in a few days, call for an appointment. Forms: Activity restrictions Discharge Date/Time: 01/09/18 14:30
[2018-01-09] MEDS: traMADol 50 MG TABLET PO STA (14:03)
[2018-01-09] MEDS: IBUPROFEN 600 MG TABLET PO STA (14:03)
[2018-01-09 14:28] VITALS: BP 150/113
== END 2018-01-09 14:30 | disposition home or self-care (01) ==
LOC: ED 12:06
DX: R19.7 Diarrhea, unspecified (principal); K42.9 Umbilical hernia without obstruction or gangrene
CPT/HCPCS: 81003; 81025; 99283; A9270; 81001; 87086

== ENCOUNTER 2018-01-10 08:00 | Outpatient (CLI) | payer MEDICAID | END 2018-01-10 08:01 | disposition home or self-care (01) | LOC: LAB.R 08:00 | PROVIDERS: ATTEND Emergency Medicine | DX: R19.7 Diarrhea, unspecified (principal) | CPT/HCPCS: 87045; 87046; 87493 ==

== ENCOUNTER 2018-01-11 16:20 | Emergency (ER) | payer MEDICAID ==
[2018-01-11 16:32] VITALS: BP 142/84
[2018-01-11] MEDS ORDERED: KETOROLAC 60 MG/2 ML VIAL IVP STA (17:26)
--- NOTE | 2018-01-11 17:27 | ED Physician Documentation ---
PD HPI ABD PAIN - Stated complaint Stated Complaint: ABD PX - Chief complaint Chief Complaint: Abd Pain - History obtained from History obtained from: Patient - History of Present Illness Timing - onset: How many days ago (3) Timing - duration: Days (3) Timing - details: Abrupt onset Pain level max: 8 Pain level now: 7 Quality: Aching, Pain Location: LLQ Radiation: Other (non-radiating) Improved by: Laying still Worsened by: Moving, Palpation Associated symptoms: Diarrhea, Dysuria. No: Fever, Nausea, Vomiting, Hematemesis, Constipation, Melena, Hematochezia, Hematuria, Chest pain, Vaginal bleeding, Vaginal dc Similar symptoms before: Diagnosis (seen recently for an umbilical hernia) Recently seen: Emergency Dept (2 days ago) Review of Systems Constitutional: denies: Fever, Chills Ears: denies: Ear pain Nose: denies: Rhinorrhea / runny nose, Congestion Throat: denies: Sore throat Cardiac: denies: Chest pain / pressure Respiratory: denies: Dyspnea, Cough GI: reports: Diarrhea : denies: Dysuria, Frequency, Hesitancy, Discharge, Now EGA Skin: denies: Rash Musculoskeletal: denies: Neck pain, Back pain Neurologic: denies: Headache PD PAST MEDICAL HISTORY - Past Medical History Past Medical History: Yes Cardiovascular: None Respiratory: None Endocrine/Autoimmune: None GI: None 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 HEENT: None Psych: Depression, Anxiety, Eating disorder Musculoskeletal: None Derm: None - Past Surgical History Past 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, Other - Present Medications Home Medications: Ambulatory Orders Medication Instructions Recorded Confirmed Topiramate [Topamax] 50 mg PO QPM 06/01/17 08/04/17 Clonidine HCl [Catapres] 0.2 mg PO DAILY 07/09/17 08/04/17 Fluoxetine HCl [Fluoxetine HCl] 80 mg PO DAILY 08/04/17 08/04/17 clonazePAM [Clonazepam] 1 mg PO QID PRN 08/04/17 08/04/17 traZODone [Desyrel] 50 mg PO QPM 08/04/17 08/04/17 HYDROcod/ACETAM 5/325 [[place] 5/325] 1 - 2 ea PO Q6H PRN #7 tablet 11/15/17 Cyclobenzaprine [Flexeril] 10 mg PO TID PRN #7 tablet 11/26/17 Lidocaine Patch 5% [Lidoderm Patch] 1 each TOP DAILY #14 patch 11/26/17 Diphenoxylate/Atropine [Lomotil] 1 each PO QID PRN #15 tablet 01/09/18 Naproxen 375 mg PO BID #20 tablet 01/09/18 Tramadol HCl 50 mg PO Q6H PRN #20 tablet 01/09/18 Oxycodone HCl/Acetaminophen 1 - 2 each PO Q6H PRN #14 tablet 01/11/18 [Percocet 5-325 mg Tablet] - Allergies Allergies/Adverse Reactions: Allergies Allergy/AdvReac Type Severity Reaction Status Date / Time Penicillins Allergy Severe Hives Verified 01/11/18 16:32 - Social History Does the pt smoke?: No Smoking Status: Never smoker Does the pt drink ETOH?: No Does the pt have substance abuse?: Yes - Immunizations Immunizations are current?: Yes - POLST Patient has POLST: No PD ED PE NORMAL - Vitals Vital signs reviewed: Yes - General General: Alert and oriented X 3, No acute distress - HEENT HEENT: Moist mucous membranes - Neck Neck: Supple, no meningeal sign - Cardiac Cardiac: RRR, Strong equal pulses - Respiratory Respiratory: No respiratory distress, Clear bilaterally - Abdomen Abdomen: Normal bowel sounds, Soft, Non distended, Other (Soft, tender to palpation suprapubic and left lower quadrant. No peritoneal signs) - Female Female : Pt declined - Back Back: No CVA TTP - Derm Derm: Warm and dry - Extremities Extremities: No edema - Neuro Neuro: Alert and oriented X 3 - Psych Psych: Normal mood, Normal affect Results - Vitals Vitals: Oxygen O2 Source Room air - Labs Labs: Laboratory Tests 01/11/18 01/11/18 01/11/18 17:22 17:22 17:22 WBC 6.4 RBC 4.08 L Hgb 14.1 Hct 41.3 MCV 101.1 H MCH 34.6 H MCHC 34.2 RDW 12.6 Plt Count 248 MPV 6.9 L Neut # (Auto) 4.7 Lymph # (Auto) 1.1 L [place] # (Auto) 0.4 Eos # (Auto) 0.1 Baso # (Auto) 0.0 Absolute Nucleated RBC 0.00 Nucleated RBC % 0.0 Sodium 133 L Potassium 3.6 Chloride 98 L Carbon Dioxide 27 Anion Gap 8.0 BUN 8 Creatinine 0.6 Estimated GFR (MDRD) 117 Glucose 88 Calcium 9.1 Total Bilirubin 0.8 AST 90 H ALT 24 Alkaline Phosphatase 54 Total Protein 7.9 Albumin 4.7 Globulin 3.2 Albumin/Globulin Ratio 1.5 Lipase 49 Urine Color YELLOW Urine Clarity CLEAR Urine pH 7.0 Ur Specific [place] 1.010 Urine Protein NEGATIVE Urine Glucose (UA) NEGATIVE Urine Ketones NEGATIVE Urine Occult Blood TRACE-INTA Urine Nitrite NEGATIVE Urine Bilirubin NEGATIVE Urine Urobilinogen 0.2 (NORMAL) Ur Leukocyte Esterase NEGATIVE Ur Microscopic Review NOT INDICATED Urine Culture Comments NOT INDICATED Urine HCG, Qual NEGATIVE - Rads (name of study) CT abdomen and pelvis Radiology: Prelim report reviewed, EMP read contemporaneously, See rad report ( New possibly hemorrhagic 2.9 cm cyst in the right ovary. Small amount of stranding free fluid may indicate partial rupture. Otherwise no acute abnormalities.) PD MEDICAL DECISION MAKING - ED course Complexity details: reviewed results, re-evaluated patient, considered differential, d/w patient ED course: Patient is a 32-year-old female who presents to the emergency department with continued abdominal pain. Appears to have ruptured ovarian cyst. She is well- appearing, nontoxic. Afebrile. Pain well controlled. Will continue supportive care and follow-up with her doctor. She has had ruptured ovarian cyst in the past. Patient counseled regarding signs and symptoms for which I believe and urgent re-evaluation would be necessary. Patient with good understanding of and agreement to plan and is comfortable going home at this time This document was made in part using voice recognition software. While efforts are made to proofread this document, sound alike and grammatical errors may occur. - Sepsis Event Vital Signs: Oxygen O2 Source Room air Departure - Departure Disposition: Home, Self Care Clinical Impression: Ovarian cyst Qualifiers: Laterality: right Qualified Code(s): N83.201 - Unspecified ovarian cyst, right side Condition: Good Instructions: ED Cyst Ovarian Follow-Up: Silva Phillip ARNP [Primary Care Provider] - Within 1 week Prescriptions: Oxycodone HCl/Acetaminophen [Percocet 5-325 mg Tablet] 1 - 2 each PO Q6H PRN # 14 tablet PRN Reason: pain Comments: Return if you worsen. This should improve over the next few days. Do not drink alcohol or drive while on narcotic pain medicine. Note that many narcotic pain relievers also contain tylenol/acetaminophen. Please ensure that your total dose of acetaminophen from all sources does not exceed 3 grams (3000mg) per day. You may constipated on this medication, take a stool softener such as "Colace" twice a day while you are on it. Also recommend a [id number] laxative such as senna or MiraLAX any day that you do not have a bowel movement. If you received narcotic pain medication in the emergency department, do not drive or operate machinery for the next 24 hours. Forms: Activity restrictions Discharge Date/Time: 01/11/18 19:21
[2018-01-11 17:43] LABS: BASOPHILS % (AUTO) 0.6 %; EOSINOPHILS # (AUTO) 0.1 10^3/uL (0.0-0.7); EOSINOPHILS % (AUTO) 2.3 %; HGB - HEMOGLOBIN 14.1 g/dL (12.0-16.0); LYMPHOCYTES # (AUTO) 1.1 10^3/uL (1.5-3.5); LYMPHOCYTES % (AUTO) 17.3 %; MEAN CORPUSCULAR HEMOGLOBIN 34.6 pg (27.0-31.0); MEAN CORPUSCULAR HGB CONC 34.2 g/dL (32.0-36.0); MEAN CORPUSCULAR VOLUME 101.1 fL (81.0-99.0); MEAN PLATELET VOLUME 6.9 fL (7.9-10.8); MONOCYTES # (AUTO) 0.4 10^3/uL (0.0-1.0); MONOCYTES % (AUTO) 6.9 %; NEUTROPHILS # (AUTO) 4.7 10^3/uL (1.5-6.6); NEUTROPHILS % (AUTO) 72.9 %; PLT - PLATELET COUNT 248 10^3/uL (130-450); RED BLOOD COUNT 4.08 10^6/uL (4.20-5.40); RED CELL DISTRIBUTION WIDTH 12.6 % (12.0-15.0); WHITE BLOOD COUNT 6.4 x10^3/uL (4.8-10.8)
[2018-01-11 17:47] LABS: BILIRUBIN,URINE NEGATIVE (NEGATIVE); GLUCOSE, URINE (UA) NEGATIVE (NEGATIVE); KETONES,URINE (UA) NEGATIVE (NEGATIVE); LEUKOCYTE ESTERASE, URINE NEGATIVE (NEGATIVE); NITRITE,URINE NEGATIVE (NEGATIVE); OCCULT BLOOD,URINE TRACE-INTA (NEGATIVE); PROTEIN,URINE NEGATIVE (NEGATIVE); UROBILINOGEN,URINE 0.2 (NORMAL) E.U./dL (NORMAL)
[2018-01-11 17:57] LABS: ALBUMIN 4.7 g/dL (3.2-5.5); ALBUMIN/GLOBULIN RATIO 1.5 (1.0-2.2); BILIRUBIN,TOTAL 0.8 mg/dL (0.2-1.0); CALCIUM 9.1 mg/dL (8.5-10.3); CREATININE 0.6 mg/dL (0.4-1.0); TOTAL PROTEIN 7.9 g/dL (6.7-8.2)
[2018-01-11 18:00] LABS: CLARITY,URINE CLEAR (CLEAR)
[2018-01-11 18:01] LABS: HCG UR QUAL NEGATIVE
[2018-01-11] MEDS ORDERED: IOPAMIDOL-300 100 ML VIAL ONE (18:04)
[2018-01-11] MEDS ORDERED: HYDROcod/ACETAM 5/325 MG TABLET PO STA (18:39)
--- NOTE | 2018-01-11 19:01 | CT Report ---
Procedure Date: 01/11/2018 Accession Number: [id number] / [id number] Procedure: CT - Abdomen/Pelvis W/ CPT Code: FULL RESULT: EXAM: CT ABDOMEN AND PELVIS EXAM DATE: 01/11/2018 06:17 PM. CLINICAL HISTORY: LLQ abd pain, diarrhea. COMPARISONS: ABDOMEN/PELVIS W/ 06/01/2017. TECHNIQUE: Routine helical CT imaging was performed through the abdomen and pelvis. IV contrast: 100 ML ISOVUE 300. Enteric contrast: No. Reconstructions: Coronal and sagittal. In accordance with CT protocol optimization, one or more of the following dose reduction techniques were utilized for this exam: automated exposure control, adjustment of mA and/or KV based on patient size, or use of iterative reconstructive technique. FINDINGS: ABDOMEN: Lung Bases: Incompletely included lower lungs are grossly clear. Heart size is within normal limits. No basilar effusions. Liver: Unremarkable. Spleen: Unremarkable. Pancreas: Unremarkable. Gallbladder/Bile Ducts: Gallbladder is unremarkable. Biliary tree is normal caliber. Adrenal Glands: Unremarkable. Kidneys: No mass, calculi, or hydronephrosis. Peritoneum/Mesentery/Bowel: No free fluid, free air, or collection. No intestinal obstruction or inflammation. The appendix is within normal limits. Lymph nodes: No mesenteric, periportal, or retroperitoneal lymphadenopathy. Vasculature: Abdominal aorta is nonaneurysmal. Portal vein is patent. Hepatic veins are patent. PELVIS: The bladder is unremarkable for the degree of distention. New 2.9 cm mildly hyperdense cyst in the right ovary with surrounding small amount of fluid. IUD is present within the uterus. No pelvic lymphadenopathy. Bones: No suspicious osseous lesions. IMPRESSION: New, possibly hemorrhagic 2.9 cm cyst in the right ovary. Small amount of stranding free fluid may indicate partial rupture. Otherwise no acute abnormalities. RADIA
[2018-01-16] MEDS ORDERED: IOPAMIDOL-300 100 ML VIAL IVP ONE (16:15)
== END 2018-01-11 19:21 | disposition home or self-care (01) ==
LOC: ED 16:20
DX: N83.201 Unspecified ovarian cyst, right side (principal)
CPT/HCPCS: 36415; 74177; 80053; 81003; 81025; 83690; 85025; 96374; 99283; A9270; Q9967; 81001; 87086

== ENCOUNTER 2018-02-01 11:56 | Emergency (ER) | payer MEDICAID ==
[2018-02-01] MEDS ORDERED: IBUPROFEN 400 MG TABLET PO STA (13:51)
[2018-02-01] MEDS ORDERED: oxyCOD/ACETAMIN 5 MG/325 MG TABLET PO STA (13:51)
[2018-02-01 13:52] LABS: BILIRUBIN,URINE NEGATIVE (NEGATIVE); GLUCOSE, URINE (UA) NEGATIVE (NEGATIVE); KETONES,URINE (UA) NEGATIVE (NEGATIVE); LEUKOCYTE ESTERASE, URINE NEGATIVE (NEGATIVE); NITRITE,URINE NEGATIVE (NEGATIVE); OCCULT BLOOD,URINE NEGATIVE (NEGATIVE); PROTEIN,URINE NEGATIVE (NEGATIVE); UROBILINOGEN,URINE 0.2 (NORMAL) E.U./dL (NORMAL)
[2018-02-01 13:55] LABS: CLARITY,URINE CLEAR (CLEAR); HCG UR QUAL NEGATIVE
--- NOTE | 2018-02-01 14:26 | ED Physician Documentation ---
History of Present Illness - Stated complaint Stated Complaint: ABD PX - Chief complaint Chief Complaint: Abd Pain - Additonal information Additional information: hx from pt 32 f hx ovarian cyst and perhaps an umbilical hernia to ED today with LLQ pain also vag bleed with sex NVD maybe a fever dysuria has an IUD Review of Systems Constitutional: reports: Fever Cardiac: denies: Chest pain / pressure Respiratory: denies: Dyspnea GI: reports: Abdominal Pain, Nausea, Vomiting, Diarrhea : reports: Dysuria, Discharge, Vaginal bleeding. 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 and currettage, Other - Present Medications Home Medications: Ambulatory Orders Medication Instructions Recorded Confirmed Topiramate [Topamax] 50 mg PO QPM 06/01/17 08/04/17 Clonidine HCl [Catapres] 0.2 mg PO DAILY 07/09/17 08/04/17 Fluoxetine HCl [Fluoxetine HCl] 80 mg PO DAILY 08/04/17 08/04/17 - Allergies Allergies/Adverse Reactions: Allergies Allergy/AdvReac Type Severity Reaction Status Date / Time Penicillins Allergy Severe Hives Verified 02/01/18 12:02 - Social History Does the pt smoke?: No Smoking Status: Never smoker Does the pt drink ETOH?: No Does the pt have substance abuse?: Yes - Immunizations Immunizations are current?: Yes - POLST Patient has POLST: No PD ED PE NORMAL - Vitals Vital signs reviewed: Yes - Cardiac Cardiac: RRR - Abdomen Abdomen: Soft, Other (TTP LLQ, mild periumbilical TTP but no palpable hernia even with cough and valsalva) - Female Female : 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), Other (cervix closed, no blood, no dc, no DMT, IUD string vis, cx taken) - Derm Derm: Normal color - Neuro Neuro: Alert and oriented X 3 Results - Vitals Vitals: Vital Signs - 24 hr 02/01/18 02/01/18 02/01/18 11:59 15:10 18:18 Temperature 36 C L 36.8 C Heart Rate 79 70 63 Respiratory 22 20 18 Rate Blood Pressure 149/87 H 125/103 H 138/71 H O2 Saturation 99 99 100 Oxygen O2 Source Room air - Labs Labs: Microbiology 02/01/18 17:50 Wet Prep - Final Cervix Laboratory Tests 02/01/18 02/01/18 13:45 13:45 Urine Color YELLOW Urine Clarity CLEAR Urine pH 7.0 Ur Specific [place] <=1.005 <=1.005 Urine Protein NEGATIVE Urine Glucose (UA) NEGATIVE Urine Ketones NEGATIVE Urine Occult Blood NEGATIVE Urine Nitrite NEGATIVE Urine Bilirubin NEGATIVE Urine Urobilinogen 0.2 (NORMAL) Ur Leukocyte Esterase NEGATIVE Ur Microscopic Review NOT INDICATED Urine HCG, Qual NEGATIVE - Rads (name of study) pelvic sono with doppler Radiology: See rad report (IUD in endo canal, nl ovaries, no torsion, small FF) PD MEDICAL DECISION MAKING - ED course ED course: MSE performed exam not suggestive of PID wet mount neg trich and BV GC chlamydia pending HCG neg UA neg sono no acute process - no torsion etc pain is left sided so doubt appy feel life threatening infections/process have been adequately ruled out pt actually left prior to results since she had to catch the bus she should call later for results - Sepsis Event Vital Signs: Vital Signs - 24 hr 02/01/18 02/01/18 02/01/18 11:59 15:10 18:18 Temperature 36 C L 36.8 C Heart Rate 79 70 63 Respiratory 22 20 18 Rate Blood Pressure 149/87 H 125/103 H 138/71 H O2 Saturation 99 99 100 Oxygen O2 Source Room air Departure - Departure Disposition: 01 Home, Self Care Clinical Impression: Pelvic pain Condition: Good Instructions: ED Pelvic Pain [facility] Follow-Up: Silva Phillip ARNP [Primary Care Provider] - Comments: All your tests came back reassuring The test is negative The IUD is in place The ultrasound did not show an ovarian cyst or abscess The urine showed no infection. The pelvic exam did not indicate an STD (but cultures are pending) And the pain is more on the left which makes appendicitis unlikely. I am not sure exactly what is causing the pain but I think it is safe for you to go home The ER staff will call your if the cultures are positive and antibiotics are needed Recommend motrin and tylenol as needed for the pain Follow up with your PMD as needed Return if worse Discharge Date/Time: 02/01/18 18:26
--- NOTE | 2018-02-01 18:16 | Ultrasound Report ---
Procedure Date: 02/01/2018 Accession Number: [id number] / [id number] Procedure: US - Pelvic w/Transvag+Doppler Comp CPT Code: FULL RESULT: EXAM: PELVIC ULTRASOUND EXAM DATE: 02/01/2018 04:43 PM. CLINICAL HISTORY: Severe LLQ pain vag bleed. COMPARISON: ABDOMEN/PELVIS W/ 01/11/2018. TECHNIQUE: Realtime transabdominal pelvic scan performed to identify the uterus and adnexa and as an overview of other pelvic structures, followed by transvaginal scan to provide greater detail of the uterus and adnexa, with static image documentation. FINDINGS: Uterus: 7.4 x 5.2 x 3.8 cm, volume 76 cc. Retroverted position. Normal overall size and echotexture. Masses: None. Endometrium: 6.7 mm. There is an IUD which is located centrally within the endometrial canal. Cervix: No focal mass identified. Right Ovary: 3.6 x 2.2 x 1.3 cm, volume 5.3 cc. Normal echotexture and blood flow. Left Ovary: 4.4 x 2.1 x 2.3 cm, volume 11 cc. Blood flow present on Doppler. Dominant follicle measures 1.8 cm. Free Fluid: Small Other: None. IMPRESSION: 1. Ovaries are normal in size for age with blood flow present in both ovaries. 2. Small free fluid in the pelvis. 3. IUD is located centrally within the endometrial canal. RADIA
[2018-02-01 18:19] VITALS: BP 138/71
== END 2018-02-01 18:26 | disposition home or self-care (01) ==
LOC: ED 11:56
DX: R10.2 Pelvic and perineal pain (principal)
CPT/HCPCS: 76830; 76856; 81003; 81025; 87210; 87491; 87591; 93975; 93976; 99283; A9270; 81001

== ENCOUNTER 2018-03-03 08:25 | Emergency (ER) | payer MEDICAID ==
--- NOTE | 2018-03-03 08:54 | ED Physician Documentation ---
PD HPI UPPER EXT INJURY - Stated complaint Stated Complaint: L HAND INJ/MED REFILL - Chief complaint Chief Complaint: Ext Problem - History obtained from History obtained from: Patient - History of Present Illness Location: Left, Finger (ring) Type of injury: Fall Where injury occurred: Other (laundary mat) Timing - onset: Last night Timing - duration: Hours Timing - details: Abrupt onset, Still present Improved by: Rest, Ice, Immobilization Worsened by: Moving, Palpating Associated symptoms: Swelling. No: Weakness, Numbness, Tingling Contributing factors: No: Anticoagulated Similar symptoms before: Has not had sx before Recently seen: Not recently seen - Additonal information Additional information: 32-year-old female who takes some Prozac for depression and clonidine for blood pressure has fallen last night at the [facility] and injured her left ring finger. She states that last night her boyfriend had to go to longterm for unfortunate circumstances and the impounded the car. The patient's belongings including her identification and medications were in the car and she is unable to get to the car to get her medications. She usually takes Prozac in the morning. She is expecting to be able to get to the car later today. Review of Systems Constitutional: denies: Fever Eyes: denies: Decreased vision Ears: denies: Ear pain Nose: denies: Congestion Cardiac: denies: Palpitations Respiratory: denies: Dyspnea, Cough GI: denies: Abdominal Pain, Vomiting, Constipation, Diarrhea : denies: Dysuria Skin: denies: Rash Musculoskeletal: reports: Extremity pain, Joint pain. 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 HEENT: None Psych: Depression, Anxiety, Eating disorder Musculoskeletal: None Derm: None - Past Surgical History Past Surgical History: Yes /HIDE SHAKER: Dilation and currettage, Other - Present Medications Home Medications: Ambulatory Orders Medication Instructions Recorded Confirmed Topiramate [Topamax] 50 mg PO QPM 06/01/17 08/04/17 Clonidine HCl [Catapres] 0.2 mg PO DAILY 07/09/17 08/04/17 Fluoxetine HCl [Fluoxetine HCl] 80 mg PO DAILY 08/04/17 08/04/17 HYDROcod/ACETAM 5/325 [[place] 5/325] 1 - 2 ea PO Q6H PRN #15 tablet 03/03/18 - Allergies Allergies/Adverse Reactions: Allergies Allergy/AdvReac Type Severity Reaction Status Date / Time Penicillins Allergy Severe Hives Verified 03/03/18 08:36 - Social History Does the pt smoke?: No Smoking Status: Never smoker Does the pt drink ETOH?: No Does the pt have substance abuse?: Yes - Immunizations Immunizations are current?: Yes - POLST Patient has POLST: No PD ED PE NORMAL - Vitals Vital signs reviewed: Yes (hypertensive ) - General General: Alert and oriented X 3, Well developed/nourished, Other (The patient appears anxious ) - HEENT HEENT: Atraumatic, PERRL, EOMI - Neck Neck: Supple, no meningeal sign - Respiratory Respiratory: No respiratory distress - Derm Derm: Normal color, Warm and dry, No rash - Extremities Extremities: No deformity, Other (There is deep abrasion to the dorsum of the left ring finger over the DIP and there is ecchymosis to the pulp of the distal digit. The nail does not appear injured and there is no sub ungal hematoma) - Neuro Neuro: Alert and oriented X 3, No motor deficit, No sensory deficit, Normal speech Eye Opening: Spontaneous Motor: Obeys Commands Verbal: Oriented GCS Score: 15 - Psych Psych: Normal mood, Normal affect Results - Vitals Vitals: Vital Signs - 24 hr 03/03/18 03/03/18 08:33 08:59 Temperature 36.5 C Heart Rate 88 81 Respiratory 22 20 Rate Blood Pressure 150/102 H 104/64 O2 Saturation 100 96 Oxygen O2 Source Room air - Rads (name of study) finger Radiology: Prelim report reviewed (Impression: Mildly displaced acute sagittally oriented fracture through the radial aspect of the tuft of the distal phalanx of the left fourth finger.), EMP read indepedently, See rad report PD MEDICAL DECISION MAKING - ED course Complexity details: reviewed results, re-evaluated patient, considered differential, d/w patient ED course: 35-year-old female with a left ring finger fracture through the distal tuft without evidence of a subungual hematoma. She has significant swelling over the pulp of the finger and the nail was not removed. Finger protector is placed and she is given hydrocodone. - Sepsis Event Vital Signs: Vital Signs - 24 hr 03/03/18 03/03/18 08:33 08:59 Temperature 36.5 C Heart Rate 88 81 Respiratory 22 20 Rate Blood Pressure 150/102 H 104/64 O2 Saturation 100 96 Oxygen O2 Source Room air Departure - Departure Disposition: 01 Home, Self Care Clinical Impression: Closed fracture of tuft of distal phalanx of finger Condition: Stable Instructions: ED Fx Finger Closed Follow-Up: Silva Phillip ARNP [Primary Care Provider] - Prescriptions: HYDROcod/ACETAM 5/325 [[place] 5/325] 1 - 2 ea PO Q6H PRN #15 tablet PRN Reason: Pain Forms: Activity restrictions
[2018-03-03] MEDS ORDERED: FLUoxetine 10 MG CAPSULE PO STA (09:02)
[2018-03-03] MEDS ORDERED: ACETAMINOPHEN 325 MG TABLET PO STA (09:03)
[2018-03-03] MEDS ORDERED: HYDROcod/ACETAM 5/325 MG TABLET PO STA (09:39)
--- NOTE | 2018-03-03 09:47 | XRAY Report ---
Procedure Date: 03/03/2018 Accession Number: [id number] / [id number] Procedure: XR - Hand 3 View LT CPT Code: FULL RESULT: EXAM: LEFT HAND RADIOGRAPHY EXAM DATE: 03/03/2018 09:19 AM. CLINICAL HISTORY: Ring finger injury dip. COMPARISON: None. TECHNIQUE: 3 views. FINDINGS: Bones: Mildly displaced acute sagittally oriented fracture through the radial aspect of the tuft of the distal phalanx of the left fourth finger. No other fracture or focal bone lesion. Joints: Normal. No subluxations. Soft Tissues: Mild soft tissue swelling at the left fourth distal phalanx. IMPRESSION: Mildly displaced acute sagittally oriented fracture through the radial aspect of the tuft of the distal phalanx of the left fourth finger. RADIA
[2018-03-03 10:23] VITALS: BP 123/78
== END 2018-03-03 10:23 | disposition home or self-care (01) ==
LOC: ED 08:25
DX: S62.635A Displaced fracture of distal phalanx of left ring finger, initial encounter for closed fracture (principal); W18.30XA Fall on same level, unspecified, initial encounter; Y92.89 Other specified places as the place of occurrence of the external cause; I10 Essential (primary) hypertension
CPT/HCPCS: 73130; 99283; A9270

== ENCOUNTER 2018-03-13 11:28 | Emergency (ER) | payer MEDICAID ==
[2018-03-13] MEDS ORDERED: IBUPROFEN 400 MG TABLET PO STA (12:01)
[2018-03-13] MEDS ORDERED: MUPIROCIN 2% OINT 1 GM TOP STA (12:02)
[2018-03-13] MEDS ORDERED: cephALEXin 250 MG CAPSULE PO STA (12:02)
--- NOTE | 2018-03-13 13:01 | ED Physician Documentation ---
History of Present Illness - Stated complaint Stated Complaint: LT RING FINGER PX/POST INJ - Chief complaint Chief Complaint: Ext Problem - Additonal information Additional information: hx from pt 32 female broke her finger 10 days ago had a splint but it got lost at work had vicodin but is out now is painful also redness around base of nail and some green dc denies preg Review of Systems Constitutional: denies: Fever : denies: Now EGA Musculoskeletal: reports: Extremity pain PD PAST MEDICAL HISTORY - Past Medical History Past Medical History: Yes Cardiovascular: None Respiratory: None Endocrine/Autoimmune: None GI: None 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 HEENT: None Psych: Depression, Anxiety, Eating disorder Musculoskeletal: None Derm: None - Past Surgical History Past Surgical History: Yes /DREDGE PUMPER: Dilation and currettage, Other - Present Medications Home Medications: Ambulatory Orders Medication Instructions Recorded Confirmed Topiramate [Topamax] 50 mg PO QPM 06/01/17 08/04/17 Clonidine HCl [Catapres] 0.2 mg PO DAILY 07/09/17 08/04/17 Fluoxetine HCl [Fluoxetine HCl] 80 mg PO DAILY 08/04/17 08/04/17 Cephalexin [Keflex] 500 mg PO Q6H #28 capsule 03/13/18 Ibuprofen [Motrin] 400 mg PO Q6H PRN #20 tablet 03/13/18 Mupirocin Calcium [Bactroban] 1 applic TP BID #30 cream..g. 03/13/18 - Allergies Allergies/Adverse Reactions: Allergies Allergy/AdvReac Type Severity Reaction Status Date / Time Penicillins Allergy Severe Hives Verified 03/13/18 11:33 - Social History Does the pt smoke?: No Smoking Status: Never smoker Does the pt drink ETOH?: No Does the pt have substance abuse?: Yes - Immunizations Immunizations are current?: Yes - POLST Patient has POLST: No PD ED PE NORMAL - Vitals Vital signs reviewed: Yes - Extremities Extremities: Other (L 4th finger with some distal swelling and TTP mid and distal phalange and slight swelling and erythema to base of nail fold but not a paronychia) Results - Vitals Vitals: Vital Signs - 24 hr 03/13/18 11:31 Temperature 36.8 C Heart Rate 76 Respiratory 16 Rate Blood Pressure 146/92 H O2 Saturation 100 Oxygen O2 Source Room air PD MEDICAL DECISION MAKING - ED course ED course: MSE performed subacute finger fx out of meds and lost splint also nailfold infection but not open fx or paronychia 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 keflex (has taken before s rxn) and bactroban pt req narcotics and I explained why that is not appropriate for a subacute injury - Sepsis Event Vital Signs: Vital Signs - 24 hr 03/13/18 11:31 Temperature 36.8 C Heart Rate 76 Respiratory 16 Rate Blood Pressure 146/92 H O2 Saturation 100 Oxygen O2 Source Room air Departure - Departure Disposition: Home, Self Care Clinical Impression: Finger fracture Qualifiers: Encounter type: subsequent encounter Finger: ring finger Fracture type: closed Phalanx: unspecified phalanx Fracture alignment: nondisplaced Laterality: left Fracture healing: with routine healing Qualified Code(s): S62.605D - Fracture of unspecified phalanx of left ring finger, subsequent encounter for fracture with routine healing Cellulitis Qualifiers: Site of cellulitis: extremity Site of cellulitis of extremity: finger Laterality: left Qualified Code(s): L03.012 - Cellulitis of left finger Condition: Good Instructions: ED Fx Finger Closed Prescriptions: Cephalexin [Keflex] 500 mg PO Q6H #28 capsule Ibuprofen [Motrin] 400 mg PO Q6H PRN #20 tablet PRN Reason: Pain Mupirocin Calcium [Bactroban] 1 applic TP BID #30 cream..g. Comments: Wear the splint Each day remove the splint to wash the finger and apply bactroban ointment Take the antibiotic as prescribed Motrin as needed for the pain Follow up with your PMD as needed
[2018-03-13 13:12] VITALS: BP 125/84
== END 2018-03-13 13:07 | disposition home or self-care (01) ==
LOC: ED 11:28
DX: S62.605D Fracture of unspecified phalanx of left ring finger, subsequent encounter for fracture with routine healing (principal); X58.XXXD Exposure to other specified factors, subsequent encounter; L03.012 Cellulitis of left finger
CPT/HCPCS: 99283; A9270

== ENCOUNTER 2018-05-23 14:34 | Emergency (ER) | payer MEDICAID ==
[2018-05-23 14:39] VITALS: BP 124/78
--- NOTE | 2018-05-23 15:08 | ED Physician Documentation ---
History of Present Illness - Stated complaint Stated Complaint: MOUTH SORES/PX - Chief complaint Chief Complaint: General - History obtained from History obtained from: Patient - History of Present Illness Timing: Other (33-year-old woman presents the emergency department with multiple complaints. First and foremost she has had 3 days to a week of painful mouth sores. Secondly she needs a refill of Topamax which she takes as a mood stabilizer, 200 mg at night. Finally she has vaginal discharge for about a month. 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 HEENT: None Psych: Depression, Anxiety, Eating disorder Musculoskeletal: None Derm: None - Past Surgical History Past Surgical History: Yes /DATABASE ENGINEER: Dilation and currettage, Other - Present Medications Home Medications: Ambulatory Orders Medication Instructions Recorded Confirmed Clonidine HCl [Catapres] 0.2 mg PO DAILY 07/09/17 08/04/17 Fluoxetine HCl 80 mg PO DAILY 08/04/17 08/04/17 Ibuprofen [Motrin] 400 mg PO Q6H PRN #20 tablet 03/13/18 Dexamethasone 5 ml PO Q4H PRN #120 ml 05/23/18 Topiramate [Topamax] 200 mg PO QPM #30 tablet 05/23/18 - Allergies Allergies/Adverse Reactions: Allergies Allergy/AdvReac Type Severity Reaction Status Date / Time Penicillins Allergy Severe Hives Verified 05/23/18 14:39 - Social History Does the pt smoke?: No Smoking Status: Never smoker Does the pt drink ETOH?: No Does the pt have substance abuse?: Yes - Immunizations Immunizations are current?: Yes - POLST Patient has POLST: No PD ED PE NORMAL - Vitals Vital signs reviewed: Yes - General General: Alert and oriented X 3, No acute distress - HEENT HEENT: Other (She is mostly edentulous in the back with very few molars, she does have large oral ulcers on the buccal mucosa and gums.) - Neck Neck: Supple, no meningeal sign, No bony TTP - Neuro Neuro: Alert and oriented X 3, Normal speech Results - Vitals Vitals: Vital Signs - 24 hr 05/23/18 14:37 Temperature 36.4 C L Heart Rate 81 Respiratory 20 Rate Blood Pressure 124/78 O2 Saturation 99 Oxygen O2 Source Room air PD MEDICAL DECISION MAKING - ED course ED course: 33-year-old woman presents the emergency department multiple complaints. She needs a refill of her Topamax which we will provide. Secondly she has oral ulcers and finally she has vaginal discharge of a months duration. I offered to move her to a private room for pelvic examination which she declined. 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 Departure - Departure Disposition: 01 Home, Self Care Clinical Impression: Oral ulcer, Medication refill Condition: Good Record reviewed to determine appropriate education?: Yes Instructions: ED Gabino Fisher Follow-Up: Anneliese Gregory DO [Provider Admit Priv/Credential] - Within 1 week Prescriptions: Dexamethasone 5 ml PO Q4H PRN #120 ml PRN Reason: oral pain Topiramate [Topamax] 200 mg PO QPM #30 tablet
== END 2018-05-23 15:18 | disposition home or self-care (01) ==
LOC: ED 14:34
DX: K12.1 Other forms of stomatitis (principal); N89.8 Other specified noninflammatory disorders of vagina
CPT/HCPCS: 99282; 99283

== ENCOUNTER 2018-05-31 15:11 | Outpatient (CLI) | payer MEDICAID | END 2018-05-31 15:12 | LOC: LAB.R 15:11 | PROVIDERS: ATTEND Obstetrics & Gynecology | DX: N76.0 Acute vaginitis (principal) | CPT/HCPCS: 87480; 87510; 87660 ==

== ENCOUNTER 2018-06-27 11:34 | Emergency (ER) | payer MEDICAID ==
--- NOTE | 2018-06-27 12:04 | ED Physician Documentation ---
PD HPI FEMALE - Stated complaint Stated Complaint: FEMALE - Chief complaint Chief Complaint: General - History obtained from History obtained from: Patient - History of Present Illness Timing - onset: How many weeks ago (2) Timing - duration: Weeks (2) Timing - details: Waxing and waning Associated symptoms: Pelvic pain (intermittent cramping), Vaginal discharge, Dysuria. No: Fever, Genital sore/lesion Contributing factors: No: Similar symptoms before: Diagnosis (BV) Recently seen: Clinic (a week ago, with symptoms of vag discharge and odor. Rx with Flagyl for BV found on vag exam. She says she got call back with Dx BV and negative for STDs otherwise. She says she is not improved with the Flagyl. Her boyfriend sexual partner with some odorous smell of urine as well. They are concerned about cross contaminating.) Review of Systems Constitutional: denies: Fever, Chills, Myalgias Nose: denies: Rhinorrhea / runny nose, Congestion Throat: denies: Sore throat Respiratory: denies: Cough GI: denies: Vomiting, Diarrhea : reports: Frequency, Discharge, Irregular menses. 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 HEENT: None Psych: Depression, Anxiety, Eating disorder Musculoskeletal: None Derm: None - Past Surgical History Past Surgical History: Yes /TEMPLATE INSPECTOR: Dilation and currettage, Other - Present Medications Home Medications: Ambulatory Orders Medication Instructions Recorded Confirmed Ibuprofen [Motrin] 400 mg PO Q6H PRN #20 tablet 03/13/18 Dexamethasone 5 ml PO Q4H PRN #120 ml 05/23/18 Clindamycin HCl [Clindamycin 300MG 300 mg PO Q6H #28 capsule 06/27/18 CAP] Clonidine HCl [Catapres] 0.2 mg PO DAILY #30 tablet 06/27/18 Fluconazole [Diflucan] 150 mg PO ONCE #1 tablet 06/27/18 Fluoxetine HCl 80 mg PO DAILY #60 capsule 06/27/18 Topiramate [Topamax] 200 mg PO QPM #30 tablet 06/27/18 - Allergies Allergies/Adverse Reactions: Allergies Allergy/AdvReac Type Severity Reaction Status Date / Time Penicillins Allergy Severe Hives Verified 06/27/18 11:41 - Social History Does the pt smoke?: No Smoking Status: Never smoker Does the pt drink ETOH?: No Does the pt have substance abuse?: Yes - Immunizations Immunizations are current?: Yes - POLST Patient has POLST: No PD ED PE NORMAL - Vitals Vital signs reviewed: Yes - General General: Alert and oriented X 3, Well developed/nourished - HEENT HEENT: Pharynx benign - Neck Neck: No adenopathy - Cardiac Cardiac: RRR, No murmur - Respiratory Respiratory: Clear bilaterally - Abdomen Abdomen: Soft, Non tender - Female Female : Deferred - Back Back: No CVA TTP - Derm Derm: Normal color, Warm and dry Results - Vitals Vitals: Oxygen O2 Source Room air - Labs Labs: Laboratory Tests 06/27/18 11:48 Urine Color YELLOW Urine Clarity CLEAR Urine pH 7.0 Ur Specific [place] 1.015 Urine Protein NEGATIVE Urine Glucose (UA) NEGATIVE Urine Ketones NEGATIVE Urine Occult Blood TRACE-LYSE Urine Nitrite NEGATIVE Urine Bilirubin NEGATIVE Urine Urobilinogen 0.2 (NORMAL) Ur Leukocyte Esterase NEGATIVE Ur Microscopic Review NOT INDICATED Urine Culture Comments NOT INDICATED Urine HCG, Qual NEGATIVE PD MEDICAL DECISION MAKING - ED course Complexity details: considered differential (being treated for BV by vaginal exam with negative STD culture from office. Symptoms not improved, so will treat with Clinda. Also out of some usual meds, so will give Rx and encourage her to f/u PMD. ), d/w patient Departure - Departure Disposition: 01 Home, Self Care Clinical Impression: Bacterial vaginosis, Medication refill Condition: Stable Record reviewed to determine appropriate education?: Yes Instructions: ED Vaginosis Bacterial Follow-Up: Anneliese Gregory DO [Provider Admit Priv/Credential] - Prescriptions: Clindamycin HCl [Clindamycin 300MG CAP] 300 mg PO Q6H #28 capsule Clonidine HCl [Catapres] 0.2 mg PO DAILY #30 tablet Fluconazole [Diflucan] 150 mg PO ONCE #1 tablet Fluoxetine HCl 80 mg PO DAILY #60 capsule Topiramate [Topamax] 200 mg PO QPM #30 tablet Comments: Drink lots of fluids. Use the clindamycin for the bacterial vaginosis since the Flagyl did not seem to work. Take Diflucan at the end of the course to reduce the chance of yeast infection. I wrote refill prescriptions for your other medications that you are out of. Please be sure to make an appoint with your primary care before the next month so that you are able to get a refill through your primary care. Recheck if your vaginosis symptoms are not improved over the next week. Forms: Activity restrictions Discharge Date/Time: 06/27/18 12:46
[2018-06-27 12:11] LABS: BILIRUBIN,URINE NEGATIVE (NEGATIVE); GLUCOSE, URINE (UA) NEGATIVE (NEGATIVE); KETONES,URINE (UA) NEGATIVE (NEGATIVE); LEUKOCYTE ESTERASE, URINE NEGATIVE (NEGATIVE); NITRITE,URINE NEGATIVE (NEGATIVE); OCCULT BLOOD,URINE TRACE-LYSE (NEGATIVE); PROTEIN,URINE NEGATIVE (NEGATIVE); UROBILINOGEN,URINE 0.2 (NORMAL) E.U./dL (NORMAL)
[2018-06-27 12:12] LABS: CLARITY,URINE CLEAR (CLEAR)
[2018-06-27 12:14] LABS: HCG UR QUAL NEGATIVE
[2018-06-27 12:45] VITALS: BP 151/100
== END 2018-06-27 12:46 | disposition home or self-care (01) ==
LOC: ED 11:34
DX: N76.0 Acute vaginitis (principal); B96.89 Other specified bacterial agents as the cause of diseases classified elsewhere
CPT/HCPCS: 81001; 81003; 81025; 87086; 99283

== ENCOUNTER 2018-07-25 09:15 | Outpatient (CLI) | payer MEDICAID ==
--- NOTE | 2018-07-25 15:44 | XRAY Report ---
Reason: LUMBAGO Procedure Date: 07/25/2018 Accession Number: [id number] / [id number] Procedure: XR - Lumbar Spine 2 View CPT Code: FULL RESULT: EXAM: LUMBOSACRAL SPINE RADIOGRAPHY EXAM DATE: 07/25/2018 09:40 AM. CLINICAL HISTORY: Lumbago. COMPARISONS: None. TECHNIQUE: 3 views. FINDINGS: Alignment: Normal. No spondylolisthesis or scoliosis. Bones: Five [id number] lumbar vertebral bodies are present. No fractures or bone lesions. Disks: Mild loss of disk space height at L1-L2 with marginal osteophytosis. Facets: There is moderate facet arthropathy at L5. Sacroiliac Joints: Unremarkable. Soft Tissues: Normal. The visualized bowel gas pattern is normal. IMPRESSION: Mild to moderate degenerative changes as described. RADIA
== END 2018-07-25 09:16 | disposition home or self-care (01) ==
LOC: DI 09:15
PROVIDERS: ATTEND Nurse Practitioner
DX: M47.9 Spondylosis, unspecified (principal); M51.36 Other intervertebral disc degeneration, lumbar region
CPT/HCPCS: 72100

== ENCOUNTER 2018-08-02 10:36 | Outpatient (CLI) | payer MEDICAID ==
[2018-08-03 11:12] LABS: HEPATITIS C ANTIBODY NON-REACTIVE (NON-REACTIVE)
[2018-08-03 16:17] LABS: HIV AG/AB 4TH GEN NON-REACTIVE (NON-REACTIVE)
== END 2018-08-02 23:59 | disposition home or self-care (01) ==
LOC: LAB.N 10:36
PROVIDERS: ATTEND Nurse Practitioner
DX: Z72.51 High risk heterosexual behavior (principal)
CPT/HCPCS: 36415; 81599; 86695; 86696; 86803; 87389; 87491; 87591

== ENCOUNTER 2018-08-22 08:00 | Outpatient (CLI) | payer MEDICAID | END 2018-08-22 23:59 | disposition home or self-care (01) | LOC: LAB.R 08:00 | PROVIDERS: ATTEND Nurse Practitioner Obstetrics & Gynecology | DX: N76.0 Acute vaginitis (principal) | CPT/HCPCS: 87480; 87510; 87660 ==

== ENCOUNTER 2018-09-12 15:31 | Outpatient (CLI) | payer MEDICAID | END 2018-09-12 23:59 | disposition home or self-care (01) | LOC: LAB.R 15:31 | PROVIDERS: ATTEND Nurse Practitioner Obstetrics & Gynecology | DX: N76.0 Acute vaginitis (principal) | CPT/HCPCS: 87480; 87491; 87510; 87591; 87660 ==

== ENCOUNTER 2019-01-16 11:50 | Outpatient (CLI) | payer MEDICAID ==
--- NOTE | 2019-01-17 01:26 | XRAY Report ---
Reason: BILAT HIP JOINT PAIN Procedure Date: 01/16/2019 Accession Number: [id number] / [id number] Procedure: XRN - Hips 2V BILAT CPT Code: FULL RESULT: EXAM: BILATERAL HIP RADIOGRAPHY EXAM DATE: 01/16/2019 12:16 PM. CLINICAL HISTORY: BILAT HIP JOINT PAIN. COMPARISON: None. TECHNIQUE: 3 views FINDINGS: Bones: No acute fractures or suspicious osseous lesions. Right Hip: No dislocation. The hip joint space is preserved. Left Hip: No dislocation. The hip joint space is preserved. Soft Tissues: IUD projects over the pelvis. IMPRESSION: No acute radiographic abnormalities. RADIA
== END 2019-01-16 11:51 | disposition home or self-care (01) ==
LOC: DI.N 11:50
PROVIDERS: ATTEND Family Medicine
DX: M25.551 Pain in right hip (principal); M25.552 Pain in left hip
CPT/HCPCS: 73521

== ENCOUNTER 2019-03-28 10:03 | Emergency (ER) | payer MEDICAID ==
[2019-03-28 10:16] VITALS: BP 155/111
[2019-03-28] MEDS ORDERED: DEXAMETHASONE 10 MG/ML VIAL PO STA (10:46)
[2019-03-28] MEDS ORDERED: CHERRY SYRUP 10 ML UDC PO ONE (10:46)
[2019-03-28] MEDS ORDERED: KETOROLAC 60 MG/2 ML VIAL IM STA (10:47)
--- NOTE | 2019-03-28 10:49 | ED Physician Documentation ---
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 She states the pain is worse today than usual and she is wanting some answers. She has tried some Tylenol with codeine which barely took the edge off the pain. She has had some x-rays of her lumbar spine and her hips. She does not have pain in hip joint itself but when she goes to walk or tries to lift her leg she has pain at the inguinal crease laterally. She has this bilaterally worse on the left than the right and despite physical therapy she has not had progress. Review of Systems Constitutional: denies: Fever Eyes: denies: Decreased vision Ears: denies: Ear pain Nose: reports: Congestion. denies: Rhinorrhea / runny nose Throat: denies: Sore throat Cardiac: denies: Chest pain / pressure, Palpitations Respiratory: reports: Cough. denies: Dyspnea GI: reports: Abdominal Pain, Diarrhea. denies: Nausea, Vomiting : denies: Dysuria, Frequency Skin: denies: Rash Musculoskeletal: reports: Extremity pain, Joint pain, Pain with weight bearing. 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: Dilation and currettage, Other - Present Medications Home Medications: Ambulatory Orders Medication Instructions Recorded Confirmed Ibuprofen [Motrin] 400 mg PO Q6H PRN #20 tablet 03/13/18 dexAMETHasone [Dexamethasone] 5 ml PO Q4H PRN #120 ml 05/23/18 Clindamycin HCl [Clindamycin 300MG 300 mg PO Q6H #28 capsule 06/27/18 CAP] Clonidine HCl [Catapres] 0.2 mg PO DAILY #30 tablet 06/27/18 Fluconazole [Diflucan] 150 mg PO ONCE #1 tablet 06/27/18 Fluoxetine HCl 80 mg PO DAILY #60 capsule 06/27/18 Topiramate [Topamax] 200 mg PO QPM #30 tablet 06/27/18 Hydrocodone/Acetaminophen 1 - 2 each PO Q6H PRN #14 tablet 03/28/19 [Hydrocodon-Acetaminophen 5-325] - Allergies Allergies/Adverse Reactions: Allergies Allergy/AdvReac Type Severity Reaction Status Date / Time Penicillins Allergy Severe Hives Verified 06/27/18 11:41 - Social History Does the pt smoke?: No Smoking Status: Never smoker Does the pt drink ETOH?: No Does the pt have substance abuse?: Yes - Immunizations Immunizations are current?: Yes - POLST Patient has POLST: No PD ED PE NORMAL - Vitals Vital signs reviewed: Yes (hypertensive ) - General General: Alert and oriented X 3, Well developed/nourished, Other (33 y/o female is in tears in pain ) - HEENT HEENT: Atraumatic, PERRL, EOMI - Respiratory Respiratory: No respiratory distress - Derm Derm: Normal color, Warm and dry, No rash - Extremities Extremities: No deformity, No edema, Other (There is pain to palpation of the hip flexors bilaterally worse on the left . There is pain with flexion of the hips but not related to passive movement of the joint through a ROM. The distal n/v is intact. There is no adenopathy to the inguinal area. ) - Psych Psych: Normal mood, Normal affect Results - Vitals Vitals: Vital Signs - 24 hr 03/28/19 10:13 Temperature 36.5 C Heart Rate 78 Respiratory 18 Rate Blood Pressure 155/111 H O2 Saturation 98 Oxygen O2 Source Room air PD MEDICAL DECISION MAKING - ED course Complexity details: considered differential, d/w patient ED course: 33-year-old female with inflammation of the hip flexors bilaterally has pain with any ambulation or lifting of her legs. She has pain at rest and she appears to be in pain. She is working 6 days/week and is reluctant to take time off of work. She is administered dexamethasone 10 mg orally 60 mg of Toradol we will provide a short course of pain medication and I have asked the patient to take 5 days off of work or to switch her job at work to less ambulation and twisting. Departure - Departure Disposition: 01 Home, Self Care Clinical Impression: Hip flexor tendinitis Qualifiers: Laterality: unspecified laterality Qualified Code(s): M76.899 - Other specified enthesopathies of unspecified lower limb, excluding foot Condition: Stable Instructions: ED Tendinitis Calcific Follow-Up: ANGEL ZAMORA MD [Primary Care Provider] - Prescriptions: Hydrocodone/Acetaminophen [Hydrocodon-Acetaminophen 5-325] 1 - 2 each PO Q6H PRN #14 tablet PRN Reason: pain Forms: Activity restrictions
== END 2019-03-28 11:08 | disposition home or self-care (01) ==
LOC: ED 10:03
DX: M76.02 Gluteal tendinitis, left hip (principal); M76.01 Gluteal tendinitis, right hip
CPT/HCPCS: 99283; 99284; A9270

== ENCOUNTER 2019-04-18 13:44 | Emergency (ER) | payer MEDICAID ==
[2019-04-18 14:04] VITALS: BP 117/97
[2019-04-18] MEDS ORDERED: HYDROcod/ACETAM 5/325 MG TABLET PO STA (16:12)
--- NOTE | 2019-04-18 16:15 | ED Physician Documentation ---
PD HPI BACK PAIN - Stated complaint Stated Complaint: BACK PX - Chief complaint Chief Complaint: Back Pain - History obtained from History obtained from: Patient - History of Present Illness Timing - onset: Other (34-year-old woman has been having ongoing back and hip pain bilaterally for the last several months. She is in this physical therapy which has been helpful. She had x-rays of her back showing degenerative changes. She has a pending referral to an orthopedist but that has not happened yet. Kumb-gil-tcvroyv medications and codeine have not been helpful, she has been getting hydrocodone on occasion from her PCP which has been helpful and she ran out last night. She denies weakness, numbness, or tingling or saddle anesthesia. No fevers or incontinence. 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 HEENT: None Psych: Depression, Anxiety, Eating disorder Musculoskeletal: None Derm: None - Past Surgical History Past Surgical History: Yes /FRUIT WORKER: Dilation and currettage, Other - Present Medications Home Medications: Ambulatory Orders Medication Instructions Recorded Confirmed Ibuprofen [Motrin] 400 mg PO Q6H PRN #20 tablet 03/13/18 dexAMETHasone [Dexamethasone] 5 ml PO Q4H PRN #120 ml 05/23/18 Clindamycin HCl [Clindamycin 300MG 300 mg PO Q6H #28 capsule 06/27/18 CAP] Clonidine HCl [Catapres] 0.2 mg PO DAILY #30 tablet 06/27/18 Fluconazole [Diflucan] 150 mg PO ONCE #1 tablet 06/27/18 Fluoxetine HCl 80 mg PO DAILY #60 capsule 06/27/18 Topiramate [Topamax] 200 mg PO QPM #30 tablet 06/27/18 Hydrocodone/Acetaminophen 1 - 2 each PO Q6H PRN #14 tablet 03/28/19 [Hydrocodon-Acetaminophen 5-325] Hydrocodone/Acetaminophen 1 - 2 each PO Q6H PRN #14 tablet 04/18/19 [Hydrocodon-Acetaminophen 5-325] - Allergies Allergies/Adverse Reactions: Allergies Allergy/AdvReac Type Severity Reaction Status Date / Time Penicillins Allergy Severe Hives Verified 06/27/18 11:41 - Social History Does the pt smoke?: No Smoking Status: Never smoker Does the pt drink ETOH?: No Does the pt have substance abuse?: Yes - Immunizations Immunizations are current?: Yes - POLST Patient has POLST: No PD ED PE NORMAL - Vitals Vital signs reviewed: Yes - General General: Alert and oriented X 3, No acute distress - Back Back: Other (Tender of the midline lumbar spine, no skin changes) - Extremities Extremities: Other (The hips themselves are nontender, she does have pain with internal and external rotation of either hip. The patient has equal and normal Achilles and patellar reflexes bilaterally. Normal sensation in all areas of the legs. Patient denies saddle anesthesia. Normal strength in flexion-exten gato at the ankles, knees, and flexion of the hips.) - Neuro Neuro: Alert and oriented X 3, Normal speech Results - Vitals Vitals: Vital Signs - 24 hr 04/18/19 13:51 Temperature 36.5 C Heart Rate 73 Respiratory 16 Rate Blood Pressure 117/97 H O2 Saturation 97 Oxygen O2 Source Room air PD MEDICAL DECISION MAKING - ED course ED course: 34-year-old woman with ongoing pain of the back and hips. Suspect a constellation of causes including sciatica and hip strain. No evidence of a serious cause. Departure - Departure Disposition: 01 Home, Self Care Clinical Impression: Medication refill Hip flexor tendinitis Qualifiers: Laterality: unspecified laterality Qualified Code(s): M76.899 - Other specified enthesopathies of unspecified lower limb, excluding foot Back pain Qualifiers: Back pain location: low back pain Chronicity: chronic Back pain laterality: midline Sciatica presence: with sciatica Sciatica laterality: bilateral sciatica Qualified Code(s): M54.41 - Lumbago with sciatica, right side; M54.42 - Lumbago with sciatica, left side; G89.29 - Other chronic pain Condition: Good Record reviewed to determine appropriate education?: Yes Instructions: ED Low Back Pain Injury, ED Chronic Pain Management Prescriptions: Hydrocodone/Acetaminophen [Hydrocodon-Acetaminophen 5-325] 1 - 2 each PO Q6H PRN #14 tablet PRN Reason: pain Comments: Further refills should come from your primary care physician. Return for new or worsening symptoms. Follow-up with the orthopedic surgeon as is being arranged.
== END 2019-04-18 16:29 | disposition home or self-care (01) ==
LOC: ED 13:44
DX: M54.41 Lumbago with sciatica, right side (principal); M54.42 Lumbago with sciatica, left side; G89.29 Other chronic pain; M76.899 Other specified enthesopathies of unspecified lower limb, excluding foot; Z76.0 Encounter for issue of repeat prescription
CPT/HCPCS: 99282; 99283; A9270

== ENCOUNTER 2019-10-28 20:29 | Emergency (ER) | payer MEDICAID ==
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
[2019-10-28 20:41] VITALS: BP 130/93
[2019-10-28] MEDS ORDERED: traMADol 50 MG TABLET PO STA (20:55)
--- NOTE | 2019-10-28 21:40 | CT Report ---
Reason: head injury Procedure Date: 10/28/2019 Accession Number: [id number] / [id number] Procedure: CT - HEAD WO CPT Code: Final Report FULL RESULT: EXAM: CT HEAD EXAM DATE: 10/28/2019 09:07 PM. CLINICAL HISTORY: Head injury. COMPARISON: HEAD W/O 07/09/2017 7:24 PM. TECHNIQUE: Multiaxial CT images were obtained from the foramen magnum to the vertex. Reformats: Sagittal and coronal. IV contrast: None. In accordance with CT protocol optimization, one or more of the following dose reduction techniques were utilized for this exam: automated exposure control, adjustment of mA and/or KV based on patient size, or use of iterative reconstructive technique. FINDINGS: Parenchyma: No intraparenchymal hemorrhage. No evidence of mass, midline shift or CT findings of acute territorial infarction. Jensen-white differentiation is distinct. Extraaxial Spaces: No subdural or epidural collections identified. Ventricles: No hydrocephalus Sinuses: Imaged paranasal sinuses, orbits, and mastoids show no significant abnormality. Bones: No evidence of acute fracture or calvarial defect. Other: None. IMPRESSION: No acute intracranial abnormalities. RADIA
== END 2019-10-28 22:04 | disposition home or self-care (01) ==
LOC: ED 20:29
DX: S09.90XA Unspecified injury of head, initial encounter (principal); S00.83XA Contusion of other part of head, initial encounter; V19.9XXA Pedal cyclist (driver) (passenger) injured in unspecified traffic accident, initial encounter; Y93.55 Activity, bike riding
CPT/HCPCS: 70450; 99284; A9270

== ENCOUNTER 2019-12-09 17:06 | Emergency (ER) | payer MEDICAID ==
[2019-12-09 17:25] LABS: BILIRUBIN,URINE NEGATIVE (NEGATIVE); GLUCOSE, URINE (UA) NEGATIVE (NEGATIVE); KETONES,URINE (UA) NEGATIVE (NEGATIVE); LEUKOCYTE ESTERASE, URINE MODERATE (NEGATIVE); NITRITE,URINE NEGATIVE (NEGATIVE); OCCULT BLOOD,URINE TRACE-INTA (NEGATIVE); PH,URINE 6.5 PH (5.0-7.5); PROTEIN,URINE NEGATIVE (NEGATIVE); UROBILINOGEN,URINE 0.2 (NORMAL) E.U./dL (NORMAL)
[2019-12-09 17:31] LABS: CLARITY,URINE CLEAR (CLEAR); HCG UR QUAL NEGATIVE
[2019-12-09 17:34] LABS: BACTERIA,URINE Rare /HPF (None Seen); RBC,URINE 0-5 /HPF (0-5); SQUAMOUS EPITHELIAL CELL,UR MANY Squamous (<= Few)
[2019-12-09] MEDS ORDERED: HYDROmorphone 1 MG/ML CARPUJECT IVP STA (17:40)
--- NOTE | 2019-12-09 17:42 | ED Physician Documentation ---
PD HPI ABD PAIN - Stated complaint Stated Complaint: RT SIDE PX - Chief complaint Chief Complaint: Abd Pain - History obtained from History obtained from: Patient - History of Present Illness Timing - onset: How many days ago (7-8) Timing - details: Gradual onset, Waxing and waning Pain level max: 8 Pain level now: 6 Quality: Aching, Pain Location: RUQ Radiation: No: Chest, , Lower back, Left flank, Left shoulder, Right flank, Right shoulder, Upper back Improved by: Other (nothing) Worsened by: Other (nothing) Associated symptoms: Nausea. No: Fever, Vomiting, Hematemesis, Diarrhea, Constipation, Melena, Hematochezia, Dysuria, Hematuria, Chest pain, Dizzy Recently seen: Not recently seen - Additional information Additional information: 34-year-old female with right upper quadrant abdominal pain for the past week. Nothing makes it better or worse. She recently started a ketogenic diet, high fat. She states she has been told in the past that she may have issues with her gallbladder. Review of Systems Ten Systems: 10 systems reviewed and negative Constitutional: denies: Fever, Chills Throat: denies: Sore throat Cardiac: denies: Chest pain / pressure Respiratory: denies: Cough GI: denies: Nausea, Vomiting : reports: Control (IUD). 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 and currettage, Other - Present Medications Home Medications: Ambulatory Orders Medication Instructions Recorded Confirmed Ibuprofen [Motrin] 400 mg PO Q6H PRN #20 tablet 03/13/18 dexAMETHasone [Dexamethasone] 5 ml PO Q4H PRN #120 ml 05/23/18 Clindamycin HCl [Clindamycin 300MG 300 mg PO Q6H #28 capsule 06/27/18 CAP] Clonidine HCl [Catapres] 0.2 mg PO DAILY #30 tablet 06/27/18 Fluconazole [Diflucan] 150 mg PO ONCE #1 tablet 06/27/18 Fluoxetine HCl 80 mg PO DAILY #60 capsule 06/27/18 Topiramate [Topamax] 200 mg PO QPM #30 tablet 06/27/18 Hydrocodone/Acetaminophen 1 - 2 each PO Q6H PRN #14 tablet 03/28/19 [Hydrocodon-Acetaminophen 5-325] Hydrocodone/Acetaminophen 1 - 2 each PO Q6H PRN #14 tablet 04/18/19 [Hydrocodon-Acetaminophen 5-325] - Allergies Allergies/Adverse Reactions: Allergies Allergy/AdvReac Type Severity Reaction Status Date / Time Penicillins Allergy Severe Hives Verified 12/09/19 17:10 - Social History Does the pt smoke?: No Smoking Status: Never smoker Does the pt drink ETOH?: No Does the pt have substance abuse?: Yes - Immunizations Immunizations are current?: Yes - POLST Patient has POLST: No PD ED PE NORMAL - Vitals Vital signs reviewed: Yes - General General: Alert and oriented X 3, No acute distress - HEENT HEENT: Moist mucous membranes - Neck Neck: Supple, no meningeal sign - Cardiac Cardiac: RRR - Respiratory Respiratory: No respiratory distress, Clear bilaterally - Abdomen Abdomen: Soft, Other (Tender to palpation right upper quadrant. Positive Olguin sign) - Back Back: No CVA TTP - Derm Derm: Warm and dry - Extremities Extremities: No deformity, No edema - Neuro Neuro: Alert and oriented X 3 Results - Vitals Vitals: Vital Signs - 24 hr 12/09/19 12/09/19 12/09/19 17:10 19:14 21:00 Temperature 36.6 C 37.2 C Heart Rate 61 60 70 Respiratory 14 20 20 Rate Blood Pressure 150/90 H 135/102 H 144/100 H O2 Saturation 100 100 100 Oxygen O2 Source Room air - Labs Labs: Laboratory Tests 12/09/19 12/09/19 12/09/19 17:18 17:18 17:37 WBC 5.2 RBC 3.44 L Hgb 12.5 Hct 36.4 L MCV 105.8 H MCH 36.3 H MCHC 34.3 RDW 11.8 L Plt Count 164 MPV 8.8 Neut # (Auto) 3.3 Lymph # (Auto) 1.0 L Erath # (Auto) 0.6 Eos # (Auto) 0.2 Baso # (Auto) 0.0 Absolute Nucleated RBC 0.00 Nucleated RBC % 0.0 Sodium Potassium Chloride Carbon Dioxide Anion Gap BUN Creatinine Estimated GFR (MDRD) Glucose Calcium Total Bilirubin AST ALT Alkaline Phosphatase Total Protein Albumin Globulin Albumin/Globulin Ratio Lipase Urine Color YELLOW Urine Clarity CLEAR Urine pH 6.5 Ur Specific Melrose 1.020 1.020 Urine Protein NEGATIVE Urine Glucose (UA) NEGATIVE Urine Ketones NEGATIVE Urine Occult Blood TRACE-INTA Urine Nitrite NEGATIVE Urine Bilirubin NEGATIVE Urine Urobilinogen 0.2 (NORMAL) Ur Leukocyte Esterase MODERATE H Urine RBC 0-5 Urine WBC 0-3 Ur Squamous Epith Cells MANY Squamous H Urine Bacteria Rare Ur Microscopic Review INDICATED Urine Culture Comments NOT INDICATED Urine HCG, Qual NEGATIVE 12/09/19 17:37 WBC RBC Hgb Hct MCV MCH MCHC RDW Plt Count MPV Neut # (Auto) Lymph # (Auto) Erath # (Auto) Eos # (Auto) Baso # (Auto) Absolute Nucleated RBC Nucleated RBC % Sodium 133 L Potassium 3.9 Chloride 96 L Carbon Dioxide 30 Anion Gap 7.0 BUN 20 Creatinine 0.8 Estimated GFR (MDRD) 83 L Glucose 102 H Calcium 9.3 Total Bilirubin 0.5 AST 74 H ALT 26 Alkaline Phosphatase 75 Total Protein 7.5 Albumin 4.4 Globulin 3.1 Albumin/Globulin Ratio 1.4 Lipase 70 H Urine Color Urine Clarity Urine pH Ur Specific Melrose Urine Protein Urine Glucose (UA) Urine Ketones Urine Occult Blood Urine Nitrite Urine Bilirubin Urine Urobilinogen Ur Leukocyte Esterase Urine RBC Urine WBC Ur Squamous Epith Cells Urine Bacteria Ur Microscopic Review Urine Culture Comments Urine HCG, Qual - Rads (name of study) RUQ US Radiology: Prelim report reviewed, EMP read contemporaneously, See rad report (Tiny gallbladder polyp. No cholelithiasis or evidence of acute cholecystitis. ) CT abdomen pelvis Radiology: Prelim report reviewed, EMP read contemporaneously, See rad report (no acute abnormality. ) PD MEDICAL DECISION MAKING - ED course Complexity details: reviewed results, re-evaluated patient, considered differential, d/w patient ED course: The cause of her symptoms is unclear. Her CT, ultrasound and lab testing was normal. She requested a swab for bacterial vaginitis which was sent. Results will be followed up and she will be called if a prescription is needed. She is asymptomatic currently. Patient counseled regarding signs and symptoms for which I believe and urgent re-evaluation would be necessary. Patient with good understanding of and agreement to plan and is comfortable going home at this time This document was made in part using voice recognition software. While efforts are made to proofread this document, sound alike and grammatical errors may occur. has hydrocodone at home for pain. Departure - Departure Disposition: Home, Self Care Clinical Impression: Abdominal pain Qualifiers: Abdominal location: generalized Qualified Code(s): R10.84 - Generalized abdominal pain Condition: Good Instructions: ED Abdominal Pain Unkn Cause Follow-Up: ANGEL ZAMORA MD [Primary Care Provider] - Within 1 week Comments: The cause of your symptoms is unclear today. Return if you worsen.
[2019-12-09 17:44] LABS: BASOPHILS % (AUTO) 0.6 %; EOSINOPHILS # (AUTO) 0.2 10^3/uL (0.0-0.7); EOSINOPHILS % (AUTO) 3.7 %; HGB - HEMOGLOBIN 12.5 g/dL (12.0-16.0); LYMPHOCYTES % (AUTO) 19.1 %; MEAN CORPUSCULAR HEMOGLOBIN 36.3 pg (27.0-31.0); MEAN CORPUSCULAR HGB CONC 34.3 g/dL (32.0-36.0); MEAN CORPUSCULAR VOLUME 105.8 fL (81.0-99.0); MEAN PLATELET VOLUME 8.8 fL (7.9-10.8); MONOCYTES # (AUTO) 0.6 10^3/uL (0.0-1.0); MONOCYTES % (AUTO) 12.4 %; NEUTROPHILS # (AUTO) 3.3 10^3/uL (1.5-6.6); PLT - PLATELET COUNT 164 10^3/uL (130-450); RED BLOOD COUNT 3.44 10^6/uL (4.20-5.40); RED CELL DISTRIBUTION WIDTH 11.8 % (12.0-15.0); WHITE BLOOD COUNT 5.2 x10^3/uL (4.8-10.8)
[2019-12-09 17:57] LABS: ALBUMIN 4.4 g/dL (3.2-5.5); ALBUMIN/GLOBULIN RATIO 1.4 (1.0-2.2); BILIRUBIN,TOTAL 0.5 mg/dL (0.2-1.0); CALCIUM 9.3 mg/dL (8.5-10.3); CREATININE 0.8 mg/dL (0.4-1.0); TOTAL PROTEIN 7.5 g/dL (6.7-8.2)
--- NOTE | 2019-12-09 18:53 | Ultrasound Report ---
Reason: RUQ abd pain Procedure Date: 12/09/2019 Accession Number: [id number] / [id number] Procedure: US - Abdomen Limited CPT Code: Final Report FULL RESULT: EXAM: ABDOMEN ULTRASOUND LIMITED, RUQ EXAM DATE: 12/09/2019 06:30 PM. CLINICAL HISTORY: Right upper quadrant abdominal pain. COMPARISON: ABDOMEN/PELVIS W/ 01/11/2018 6:16 PM. TECHNIQUE: Real-time scanning was performed with static images obtained. FINDINGS: Liver: Normal in size and echotexture. 15.4 cm. There is a small echogenic lesion in the left lobe measuring 1.0 x 0.8 x 1.6 cm, unchanged from prior CT and most likely representing a hemangioma. Main portal vein flow: Hepatopetal. Gallbladder: 3 mm non-mobile lesion along the wall. No stones identified. Biliary System: CBD measures 3 mm. No intrahepatic or extrahepatic ductal dilatation. Other: The pancreatic duct in the head is mildly prominent. The right kidney is unremarkable without hydronephrosis. IMPRESSION: Tiny gallbladder polyp. No cholelithiasis or evidence of acute cholecystitis. RADIA
[2019-12-09] MEDS ORDERED: IOVERSOL 320 100 ML VIAL IVP ONE ×2 (19:57→20:15)
--- NOTE | 2019-12-09 20:44 | CT Report ---
Reason: R sided abd pain Procedure Date: 12/09/2019 Accession Number: [id number] / [id number] Procedure: CT - Abdomen/Pelvis W CPT Code: Final Report FULL RESULT: EXAM: CT ABDOMEN AND PELVIS EXAM DATE: 12/09/2019 08:18 PM. CLINICAL HISTORY: R sided abd pain. COMPARISONS: ABDOMEN/PELVIS W/ 01/11/2018 6:16 PM. TECHNIQUE: Routine helical CT imaging was performed through the abdomen and pelvis. IV contrast: 100 cc OPTIRAY 320. Enteric contrast: No. Reconstructions: Coronal and sagittal. In accordance with CT protocol optimization, one or more of the following dose reduction techniques were utilized for this exam: automated exposure control, adjustment of mA and/or KV based on patient size, or use of iterative reconstructive technique. FINDINGS: Lung Bases: Unremarkable. Liver: Normal. No masses. Gallbladder/Bile Ducts: Unremarkable. Spleen: Normal. Pancreas: Normal. Adrenal Glands: Normal. Kidneys: Normal. No masses or hydronephrosis. Peritoneal Cavity/Bowel: Normal. No free fluid, free air or adenopathy. No masses or acute inflammatory process. Appendix is not optimally seen, however there is no inflammation in right lower quadrant. No inflamed bowel loop noted. Pelvic Organs: Intrauterine device noted. Normal. The bladder and visualized pelvic organs are within normal limits. Vasculature: No aneurysms or other significant abnormality. Bones: No significant abnormality. Other: None. IMPRESSION: Appendix is not optimally seen, however there is no inflammation in right lower quadrant. No inflamed bowel loop noted. No acute abdominal pathology. RADIA
[2019-12-09 21:01] VITALS: BP 144/100
[2019-12-09 22:47] LABS: TRICHOMONAS VAGINALIS DNA NEGATIVE (NEGATIVE)
[2019-12-09 23:47] LABS: CANDIDA GROUP DNA NEGATIVE (NEGATIVE); CANDIDA KRUSEI DNA NEGATIVE (NEGATIVE); TRICHOMONAS VAGINALIS DNA NEGATIVE (NEGATIVE)
== END 2019-12-09 21:08 | disposition home or self-care (01) ==
LOC: ED 17:06
DX: R10.84 Generalized abdominal pain (principal); R11.0 Nausea; K82.4 Cholesterolosis of gallbladder; Z97.5 Presence of (intrauterine) contraceptive device
CPT/HCPCS: 36415; 74177; 76705; 80053; 81001; 81025; 83690; 85025; 87481; 87491; 87591; 87661; 87801; 96374; 99284; J1170; Q9967; 81003; 87086

== ENCOUNTER 2020-05-12 18:31 | Emergency (ER) | payer MEDICAID ==
[2020-05-12] MEDS ORDERED: TRANEXAMIC ACID 1,000 MG/10 ML VIAL NAS STA (18:47)
--- NOTE | 2020-05-12 18:57 | ED Physician Documentation ---
History of Present Illness - Stated complaint Stated Complaint: MOUTH BLEEDING/PX - Chief complaint Chief Complaint: Heent - History obtained from History obtained from: Patient - History of Present Illness Timing: Prior to arrival - Additonal information Additional information: 35-year-old female presents the emergency department for evaluation of bleeding at the site of a tooth extraction. She reported that tooth #7 was removed at [facility] this afternoon. While in office she reports that the dentist had a difficult time getting control of the bleeding and advised her to take it easy. When she left the office it began to bleed profusely therefore the patient presents to the ER. She denies any history of anticoagulation or history of bleeding disorders. Does nto take excessive amounts of NSAID medication. 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: None Psych: Depression, Anxiety, Eating disorder Musculoskeletal: None Derm: None - Past Surgical History Past Surgical 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 and 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, Other - Present Medications Home Medications: Ambulatory Orders Medication Instructions Recorded Confirmed Ibuprofen [Motrin] 400 mg PO Q6H PRN #20 tablet 03/13/18 dexAMETHasone [Dexamethasone] 5 ml PO Q4H PRN #120 ml 05/23/18 Clindamycin HCl [Clindamycin 300MG 300 mg PO Q6H #28 capsule 06/27/18 CAP] Clonidine HCl [Catapres] 0.2 mg PO DAILY #30 tablet 06/27/18 Fluconazole [Diflucan] 150 mg PO ONCE #1 tablet 06/27/18 Fluoxetine HCl 80 mg PO DAILY #60 capsule 06/27/18 Topiramate [Topamax] 200 mg PO QPM #30 tablet 06/27/18 Hydrocodone/Acetaminophen 1 - 2 each PO Q6H PRN #14 tablet 03/28/19 [Hydrocodon-Acetaminophen 5-325] Hydrocodone/Acetaminophen 1 - 2 each PO Q6H PRN #14 tablet 04/18/19 [Hydrocodon-Acetaminophen 5-325] - Allergies Allergies/Adverse Reactions: Allergies Allergy/AdvReac Type Severity Reaction Status Date / Time Penicillins Allergy Severe Hives Verified 05/12/20 18:41 - Social History Does the pt smoke?: No Smoking Status: Never smoker Does the pt drink ETOH?: No Does the pt have substance abuse?: Yes - Immunizations Immunizations are current?: Yes - POLST Patient has POLST: No PD ED PE EXPANDED - General General: Alert, Anxious - HEENT HEENT: Other (bleeding in the extraction site of tooth #7. brisk, venous appearing. ) Results - Vitals Vitals: Vital Signs - 24 hr 05/12/20 18:39 Temperature 36.7 C Heart Rate 71 Respiratory 16 Rate Blood Pressure 159/118 H O2 Saturation 100 Oxygen O2 Source Room air PD MEDICAL DECISION MAKING - ED course Complexity details: d/w patient ED course: 35-year-old female comes to the emergency department for evaluation of tooth extraction site bleeding. She had been bleeding persistently since discharge from her dental office at Sep. Here in the emergency department we were able to get the bleeding to stop by packing tranxemic acid soaked gauze around the tooth and injecting a very small amount into the dental socket. With time and gentle pressure clot formation was seen at the extraction site. She no longer appears to be bleeding. I have advised her to have very close follow-up with her dentist tomorrow in the a.m. Patient is to return to the emergency department if she has a return of the bleeding Departure - Departure Disposition: 01 Home, Self Care Clinical Impression: Surgical wound hemorrhage after dental procedure Condition: Stable Record reviewed to determine appropriate education?: Yes Comments: Maria Eugenia it is important that you continue to follow-up with your dentist tomorrow in the morning. Here in the emergency department we used tranxemic acid soaked gauze to get the bleeding to stop and a clot to form. We also used a little bit of lidocaine with epinephrine. If the bleeding returns overnight return to the emergency department however in the short interim I do recommend that you keep the gauze that is already there in place.
[2020-05-12] MEDS ORDERED: LIDOCAINE 1%-EPI 1:100000 20 ML MDV SUBQ STA (19:08)
[2020-05-12 20:12] VITALS: BP 145/101
== END 2020-05-12 20:11 | disposition home or self-care (01) ==
LOC: ED 18:31
DX: K91.840 Postprocedural hemorrhage of a digestive system organ or structure following a digestive system procedure (principal); Z98.818 Other dental procedure status; Y83.8 Other surgical procedures as the cause of abnormal reaction of the patient, or of later complication, without mention of misadventure at the time of the procedure
CPT/HCPCS: 99282; 99283

== ENCOUNTER 2020-05-28 16:22 | Emergency (ER) | payer MEDICAID ==
--- NOTE | 2020-05-28 16:54 | ED Physician Documentation ---
History of Present Illness - Stated complaint Stated Complaint: BACK PX,NAUSEA - Chief complaint Chief Complaint: Abd Pain - History obtained from History obtained from: Patient, Family - History of Present Illness Timing: How many days ago (3) Pain level max: 5 Pain level now: 4 - Additonal information Additional information: 35-year-old female presents to the emergency department stating that she has had low back pain for the past 3 to 4 days. States that she is concerned about potential kidney infections. Has mild urinary frequency and dysuria. No change in sexual partners. No vaginal bleeding or discharge. Worse with movement, better with rest. No fevers. No chills. No vomiting. 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: Dilation and currettage, Other - Present Medications Home Medications: Ambulatory Orders Medication Instructions Recorded Confirmed Ibuprofen [Motrin] 400 mg PO Q6H PRN #20 tablet 03/13/18 dexAMETHasone [Dexamethasone] 5 ml PO Q4H PRN #120 ml 05/23/18 Clindamycin HCl [Clindamycin 300MG 300 mg PO Q6H #28 capsule 06/27/18 CAP] Clonidine HCl [Catapres] 0.2 mg PO DAILY #30 tablet 06/27/18 Fluconazole [Diflucan] 150 mg PO ONCE #1 tablet 06/27/18 Fluoxetine HCl 80 mg PO DAILY #60 capsule 06/27/18 Topiramate [Topamax] 200 mg PO QPM #30 tablet 06/27/18 Hydrocodone/Acetaminophen 1 - 2 each PO Q6H PRN #14 tablet 03/28/19 [Hydrocodon-Acetaminophen 5-325] Hydrocodone/Acetaminophen 1 - 2 each PO Q6H PRN #14 tablet 04/18/19 [Hydrocodon-Acetaminophen 5-325] Cefdinir 300 mg PO BID #20 capsule 05/28/20 HYDROcod/ACETAM 5/325 [[place] 5/325] 1 - 2 ea PO Q6H PRN #14 tablet 05/28/20 Ondansetron Odt [Zofran] 4 mg TL Q6H PRN #10 tablet 05/28/20 - Allergies Allergies/Adverse Reactions: Allergies Allergy/AdvReac Type Severity Reaction Status Date / Time Penicillins Allergy Severe Hives Verified 05/12/20 18:41 - Social History Does the pt smoke?: No Smoking Status: Never smoker Does the pt drink ETOH?: No Does the pt have substance abuse?: Yes - Immunizations Immunizations are current?: Yes - POLST Patient has POLST: No PD ED PE NORMAL - Vitals Vital signs reviewed: Yes - General General: Alert and oriented X 3, No acute distress - HEENT HEENT: Moist mucous membranes - Neck Neck: Supple, no meningeal sign - Cardiac Cardiac: RRR - Respiratory Respiratory: No respiratory distress, Clear bilaterally - Abdomen Abdomen: Soft, Non tender, Non distended - Back Back: No spinal TTP, Other (mild R CVAT) - Derm Derm: Warm and dry - Extremities Extremities: No edema - Neuro Neuro: Alert and oriented X 3 Results - Vitals Vitals: Vital Signs - 24 hr 05/28/20 05/28/20 16:27 18:21 Temperature 36.7 C 36.9 C Heart Rate 66 68 Respiratory 18 18 Rate Blood Pressure 174/109 H 149/113 H O2 Saturation 98 97 Oxygen O2 Source Room air - Labs Labs: Laboratory Tests 05/28/20 05/28/20 05/28/20 16:39 17:15 17:15 WBC 6.1 RBC 3.74 L Hgb 13.1 Hct 38.4 MCV 102.7 H MCH 35.0 H MCHC 34.1 RDW 11.9 L Plt Count 210 MPV 8.5 Neut # (Auto) 4.1 Lymph # (Auto) 1.2 L [place] # (Auto) 0.6 Eos # (Auto) 0.1 Baso # (Auto) 0.1 Absolute Nucleated RBC 0.00 Nucleated RBC % 0.0 Sodium 135 Potassium 3.8 Chloride 92 L Carbon Dioxide 26 Anion Gap 17.0 H BUN 12 Creatinine 0.5 Estimated GFR (MDRD) 141 Glucose 110 H Calcium 9.8 Total Bilirubin 0.7 AST 101 H ALT 37 Alkaline Phosphatase 81 Total Protein 7.5 Albumin 4.8 Globulin 2.7 Albumin/Globulin Ratio 1.8 Lipase 51 Urine Color ORANGE Urine Clarity CLEAR Urine pH 6.5 Ur Specific [place] <=1.005 Urine Protein NEGATIVE Urine Glucose (UA) NEGATIVE Urine Ketones NEGATIVE Urine Occult Blood NEGATIVE Urine Nitrite POSITIVE H Urine Bilirubin NEGATIVE Urine Urobilinogen 1 (NORMAL) Ur Leukocyte Esterase NEGATIVE Urine RBC None Seen Urine WBC 0-3 Ur Squamous Epith Cells MANY Squamous H Urine Bacteria Few Ur Microscopic Review INDICATED Urine Culture Comments NOT INDICATED Urine HCG, Qual NEGATIVE PD MEDICAL DECISION MAKING - ED course Complexity details: reviewed results, re-evaluated patient, considered differential, d/w patient, d/w family ED course: 35-year-old female presents to the emergency department with what appears to be a right-sided pyelonephritis. She is well-appearing, nontoxic. Afebrile. Tolerating p.o. without difficulty. No evidence of sepsis. Her allergy to penicillins was a rash x1. Given Rocephin here. Will place on cefdinir for home. Patient counseled regarding signs and symptoms for which I believe and urgent re-evaluation would be necessary. Patient with good understanding of and agreement to plan and is comfortable going home at this time This document was made in part using voice recognition software. While efforts are made to proofread this document, sound alike and grammatical errors may occur. Departure - Departure Disposition: 01 Home, Self Care Clinical Impression: Pyelonephritis Condition: Good Instructions: ED Kidney Infec Female Follow-Up: JOS SALOMON, MSN, [employer]SEMBLER [Primary Care Provider] - Within 1 week Prescriptions: Cefdinir 300 mg PO BID #20 capsule HYDROcod/ACETAM 5/325 [[place] 5/325] 1 - 2 ea PO Q6H PRN #14 tablet PRN Reason: Pain Ondansetron Odt [Zofran] 4 mg TL Q6H PRN #10 tablet PRN Reason: Nausea / Vomiting Comments: Take all antibiotics until gone. Return if you worsen. Follow-up with your doctor for repeat evaluation in 1 week. Return if you develop worsening pain, fevers or new or worsening symptoms. Do not drink alcohol or drive while on narcotic pain medicine. Note that many narcotic pain relievers also contain tylenol/acetaminophen. Please ensure that your total dose of acetaminophen from all sources does not exceed 3 grams (3000mg) per day. You may constipated on this medication, take a stool softener such as "Colace" twice a day while you are on it. Also recommend a [id number] laxative such as senna or MiraLAX any day that you do not have a bowel movement. If you received narcotic pain medication in the emergency department, do not drive or operate machinery for the next 24 hours. Discharge Date/Time: 05/28/20 18:25
[2020-05-28 17:14] LABS: BILIRUBIN,URINE NEGATIVE (NEGATIVE); GLUCOSE, URINE (UA) NEGATIVE (NEGATIVE); KETONES,URINE (UA) NEGATIVE (NEGATIVE); LEUKOCYTE ESTERASE, URINE NEGATIVE (NEGATIVE); NITRITE,URINE POSITIVE (NEGATIVE); OCCULT BLOOD,URINE NEGATIVE (NEGATIVE); PH,URINE 6.5 PH (5.0-7.5); PROTEIN,URINE NEGATIVE (NEGATIVE); UROBILINOGEN,URINE 1 (NORMAL) E.U./dL (NORMAL)
[2020-05-28 17:25] LABS: BASOPHILS # (AUTO) 0.1 10^3/uL (0.0-0.1); EOSINOPHILS # (AUTO) 0.1 10^3/uL (0.0-0.7); EOSINOPHILS % (AUTO) 1.6 %; HGB - HEMOGLOBIN 13.1 g/dL (12.0-16.0); LYMPHOCYTES # (AUTO) 1.2 10^3/uL (1.5-3.5); LYMPHOCYTES % (AUTO) 19.3 %; MEAN CORPUSCULAR HGB CONC 34.1 g/dL (32.0-36.0); MEAN CORPUSCULAR VOLUME 102.7 fL (81.0-99.0); MEAN PLATELET VOLUME 8.5 fL (7.9-10.8); MONOCYTES # (AUTO) 0.6 10^3/uL (0.0-1.0); MONOCYTES % (AUTO) 10.2 %; NEUTROPHILS # (AUTO) 4.1 10^3/uL (1.5-6.6); NEUTROPHILS % (AUTO) 67.4 %; PLT - PLATELET COUNT 210 10^3/uL (130-450); RED BLOOD COUNT 3.74 10^6/uL (4.20-5.40); RED CELL DISTRIBUTION WIDTH 11.9 % (12.0-15.0); WHITE BLOOD COUNT 6.1 x10^3/uL (4.8-10.8)
[2020-05-28 17:27] LABS: CLARITY,URINE CLEAR (CLEAR)
[2020-05-28 17:28] LABS: BACTERIA,URINE Few /HPF (None Seen); HCG UR QUAL NEGATIVE; RBC,URINE None Seen /HPF (0-5); SQUAMOUS EPITHELIAL CELL,UR MANY Squamous (<= Few)
[2020-05-28 17:41] LABS: ALBUMIN 4.8 g/dL (3.2-5.5); ALBUMIN/GLOBULIN RATIO 1.8 (1.0-2.2); BILIRUBIN,TOTAL 0.7 mg/dL (0.2-1.0); CALCIUM 9.8 mg/dL (8.5-10.3); CREATININE 0.5 mg/dL (0.4-1.0); TOTAL PROTEIN 7.5 g/dL (6.7-8.2)
[2020-05-28] MEDS ORDERED: LIDOCAINE 1% 2 ML VIAL MC ONE (17:53)
[2020-05-28] MEDS ORDERED: oxyCODONE 5 MG TABLET PO STA (17:53)
[2020-05-28] MEDS ORDERED: cefTRIAXone 1 GM VIAL IM STA (17:53)
[2020-05-28 18:21] VITALS: BP 149/113
== END 2020-05-28 18:25 | disposition home or self-care (01) ==
LOC: ED 16:22
DX: N12 Tubulo-interstitial nephritis, not specified as acute or chronic (principal); Z88.0 Allergy status to penicillin
CPT/HCPCS: 36415; 80053; 81001; 81025; 83690; 85025; 96372; 99283; 99284; A9270; 81003; 87086

== ENCOUNTER 2020-06-03 10:46 | Emergency (ER) | payer MEDICAID ==
--- NOTE | 2020-06-03 10:56 | ED Physician Documentation ---
PD HPI NVD - Stated complaint Stated Complaint: N/V BACK PX - Chief complaint Chief Complaint: Abd Pain - History obtained from History obtained from: Patient - History of Present Illness Timing - onset: How many days ago (has had some back pains and abd pains for 5 days; Dx with UTI/kidney infection and was improving symptoms, but now with increased pain again today. Having nausea and vomiting. [place] feverish last night.) Timing - details: Gradual onset, Still present, Waxing and waning Associated symptoms: Fever, Abdominal pain, Loss of appetite, Dysuria. No: Chest pain, Hematemesis Contributing factors: No: Sick contact, Bad food, Travel Improved by: Position Worsened by: Position, Palpation. No: Moving, Breathing Similar symptoms before: Diagnosis (UTIs. No history of stones.) Recently seen: Clinic (yesterday and had abx changed to Cipro. No urine sample per patient.), Emergency Dept (6 days ago and Rx for likely UTI/pyelo) Review of Systems Constitutional: reports: Fever, Chills Nose: denies: Rhinorrhea / runny nose, Congestion Throat: denies: Sore throat Respiratory: denies: Cough GI: reports: Nausea, Vomiting. 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, Other - Present Medications Home Medications: Ambulatory Orders Medication Instructions Recorded Confirmed Ibuprofen [Motrin] 400 mg PO Q6H PRN #20 tablet 03/13/18 dexAMETHasone [Dexamethasone] 5 ml PO Q4H PRN #120 ml 05/23/18 Clindamycin HCl [Clindamycin 300MG 300 mg PO Q6H #28 capsule 06/27/18 CAP] Clonidine HCl [Catapres] 0.2 mg PO DAILY #30 tablet 06/27/18 Fluconazole [Diflucan] 150 mg PO ONCE #1 tablet 06/27/18 Fluoxetine HCl 80 mg PO DAILY #60 capsule 06/27/18 Topiramate [Topamax] 200 mg PO QPM #30 tablet 06/27/18 Hydrocodone/Acetaminophen 1 - 2 each PO Q6H PRN #14 tablet 03/28/19 [Hydrocodon-Acetaminophen 5-325] Hydrocodone/Acetaminophen 1 - 2 each PO Q6H PRN #14 tablet 04/18/19 [Hydrocodon-Acetaminophen 5-325] Cefdinir 300 mg PO BID #20 capsule 05/28/20 HYDROcod/ACETAM 5/325 [[place] 5/325] 1 - 2 ea PO Q6H PRN #14 tablet 05/28/20 Ondansetron Odt [Zofran] 4 mg TL Q6H PRN #10 tablet 05/28/20 Naproxen [EC-Naproxen] 500 mg PO BID #20 tablet. 06/03/20 Ondansetron Odt [Zofran] 4 mg TL Q6H PRN #10 tablet 06/03/20 - Allergies Allergies/Adverse Reactions: Allergies Allergy/AdvReac Type Severity Reaction Status Date / Time Penicillins Allergy Severe Hives Verified 06/03/20 10:54 - Social History Does the pt smoke?: No Smoking Status: Never smoker Does the pt drink ETOH?: No Does the pt have substance abuse?: Yes - Immunizations Immunizations are current?: Yes - POLST Patient has POLST: No PD ED PE NORMAL - Vitals Vital signs reviewed: Yes - General General: Alert and oriented X 3, Well developed/nourished, Other (appears in pain, holding lower abd. ) - Neck Neck: Supple, no meningeal sign, No adenopathy - Cardiac Cardiac: RRR, No murmur - Respiratory Respiratory: Clear bilaterally - Abdomen Abdomen: Normal bowel sounds, Soft, Non distended, No organomegaly, Other (tender lower abd on left side. Some left CVA tenderness. ) - Female Female : Deferred - Rectal Rectal: Deferred - Derm Derm: Normal color, Warm and dry, No rash - Extremities Extremities: No edema, No calf tenderness / cord - Neuro Neuro: Alert and oriented X 3, No motor deficit, No sensory deficit Results - Vitals Vitals: Vital Signs - 24 hr 06/03/20 06/03/20 06/03/20 10:52 12:54 14:00 Temperature 37.2 C Heart Rate 106 H 90 89 Respiratory 16 18 19 Rate Blood Pressure 147/100 H 134/94 H 142/92 H O2 Saturation 99 100 96 06/03/20 14:38 Temperature 37.5 C Heart Rate 82 Respiratory 17 Rate Blood Pressure 142/75 H O2 Saturation 100 Oxygen O2 Source Room air - Labs Labs: Laboratory Tests 06/03/20 06/03/20 06/03/20 11:04 11:04 11:58 WBC 15.8 H RBC 3.94 L Hgb 14.0 Hct 39.3 MCV 99.7 H MCH 35.5 H MCHC 35.6 RDW 11.7 L Plt Count 202 MPV 9.3 Neut # (Auto) 14.0 H Lymph # (Auto) 0.4 L [place] # (Auto) 1.1 H Eos # (Auto) 0.0 Baso # (Auto) 0.1 Absolute Nucleated RBC 0.00 Nucleated RBC % 0.0 Sodium 132 L Potassium 3.5 Chloride 93 L Carbon Dioxide 24 Anion Gap 15.0 H BUN 8 Creatinine 0.6 Estimated GFR (MDRD) 114 Glucose 174 H Calcium 9.5 Urine Color Urine Clarity Urine pH Ur Specific [place] Urine Protein Urine Glucose (UA) Urine Ketones Urine Occult Blood Urine Nitrite Urine Bilirubin Urine Urobilinogen Ur Leukocyte Esterase Urine RBC Urine WBC Ur Squamous Epith Cells Urine Bacteria Ur Microscopic Review Urine Culture Comments Urine HCG, Qual C. glabrata (PCR) NEGATIVE C. krusei (PCR) NEGATIVE [place] species DNA NEGATIVE T. vaginalis (PCR) NEGATIVE Bact Vaginosis (PCR) NEGATIVE 06/03/20 13:07 WBC RBC Hgb Hct MCV MCH MCHC RDW Plt Count MPV Neut # (Auto) Lymph # (Auto) [place] # (Auto) Eos # (Auto) Baso # (Auto) Absolute Nucleated RBC Nucleated RBC % Sodium Potassium Chloride Carbon Dioxide Anion Gap BUN Creatinine Estimated GFR (MDRD) Glucose Calcium Urine Color YELLOW Urine Clarity CLEAR Urine pH 6.5 Ur Specific [place] 1.015 Urine Protein 30 H Urine Glucose (UA) NEGATIVE Urine Ketones NEGATIVE Urine Occult Blood MODERATE H Urine Nitrite NEGATIVE Urine Bilirubin NEGATIVE Urine Urobilinogen 0.2 (NORMAL) Ur Leukocyte Esterase TRACE H Urine RBC 0-5 Urine WBC 0-3 Ur Squamous Epith Cells MOD Squamous H Urine Bacteria Few Ur Microscopic Review INDICATED Urine Culture Comments NOT INDICATED Urine HCG, Qual NEGATIVE C. glabrata (PCR) C. krusei (PCR) Paige species DNA T. vaginalis (PCR) Bact Vaginosis (PCR) - Rads (name of study) pelvic U/S Radiology: Prelim report reviewed (IUD in place, no free fluid, normal ovaries. Normal kidney size. ), See rad report PD MEDICAL DECISION MAKING - ED course Complexity details: reviewed results, re-evaluated patient (improved reasonably well after IV meds x few doses. ), considered differential (recent UTI and having flank pain so presume kidney infection, but UA not that bad so consider BV or stone or ovarian. ), d/w patient Departure - Departure Disposition: 01 Home, Self Care Clinical Impression: Lower abdominal pain, UTI (urinary tract infection) Condition: Stable Record reviewed to determine appropriate education?: Yes Follow-Up: JOS SALOMON, MSN, [employer] [facility] [Primary Care Provider] - Prescriptions: Naproxen [EC-Naproxen] 500 mg PO BID #20 tablet. Ondansetron Odt [Zofran] 4 mg TL Q6H PRN #10 tablet PRN Reason: Nausea / Vomiting Comments: You may persistent urinary tract infection given your symptoms. The urine culture should result in a couple of days. Start the ciprofloxacin prescribed yesterday. Ondansetron if needed for nausea. Also add naproxen anti- inflammatory twice daily with food for the next several days to week. Continue your other usual medicines. Follow-up with your primary care within the next several days, call for an appointment. Return if worsening despite the above medication. Discharge Date/Time: 06/03/20 14:38
[2020-06-03] MEDS ORDERED: diphenhydrAMINE INJ 50 MG/ML VIAL IVP STA (11:09)
[2020-06-03] MEDS ORDERED: PROCHLORPERAZINE 10 MG/2 ML VIAL IVP STA ×2 (11:09→13:13)
[2020-06-03] MEDS ORDERED: SODIUM CHLORIDE 0.9% 1,000 ML IV STA (11:09)
[2020-06-03] MEDS ORDERED: HYDROmorphone 1 MG/ML CARPUJECT IVP STA ×3 (11:09→13:54)
[2020-06-03] MEDS ORDERED: KETOROLAC 15 MG/ML VIAL IVP STA (11:10)
[2020-06-03 11:23] LABS: BASOPHILS # (AUTO) 0.1 10^3/uL (0.0-0.1); BASOPHILS % (AUTO) 0.4 %; EOSINOPHILS % (AUTO) 0.1 %; LYMPHOCYTES # (AUTO) 0.4 10^3/uL (1.5-3.5); LYMPHOCYTES % (AUTO) 2.7 %; MEAN CORPUSCULAR HEMOGLOBIN 35.5 pg (27.0-31.0); MEAN CORPUSCULAR HGB CONC 35.6 g/dL (32.0-36.0); MEAN CORPUSCULAR VOLUME 99.7 fL (81.0-99.0); MEAN PLATELET VOLUME 9.3 fL (7.9-10.8); MONOCYTES # (AUTO) 1.1 10^3/uL (0.0-1.0); MONOCYTES % (AUTO) 6.8 %; NEUTROPHILS % (AUTO) 88.7 %; PLT - PLATELET COUNT 202 10^3/uL (130-450); RED BLOOD COUNT 3.94 10^6/uL (4.20-5.40); RED CELL DISTRIBUTION WIDTH 11.7 % (12.0-15.0); WHITE BLOOD COUNT 15.8 x10^3/uL (4.8-10.8)
[2020-06-03 11:34] LABS: CALCIUM 9.5 mg/dL (8.5-10.3); CREATININE 0.6 mg/dL (0.4-1.0)
[2020-06-03] MEDS ORDERED: cefTRIAXone 1 GM VIAL IVP STA (13:01)
[2020-06-03 13:13] LABS: BILIRUBIN,URINE NEGATIVE (NEGATIVE); GLUCOSE, URINE (UA) NEGATIVE (NEGATIVE); KETONES,URINE (UA) NEGATIVE (NEGATIVE); LEUKOCYTE ESTERASE, URINE TRACE (NEGATIVE); NITRITE,URINE NEGATIVE (NEGATIVE); OCCULT BLOOD,URINE MODERATE (NEGATIVE); PH,URINE 6.5 PH (5.0-7.5); PROTEIN,URINE 30 mg/dL (NEGATIVE); UROBILINOGEN,URINE 0.2 (NORMAL) E.U./dL (NORMAL)
[2020-06-03 13:17] LABS: CLARITY,URINE CLEAR (CLEAR)
[2020-06-03 13:18] LABS: HCG UR QUAL NEGATIVE
[2020-06-03 13:31] LABS: RBC,URINE 0-5 /HPF (0-5)
[2020-06-03 13:32] LABS: BACTERIA,URINE Few /HPF (None Seen); SQUAMOUS EPITHELIAL CELL,UR MOD Squamous (<= Few)
--- NOTE | 2020-06-03 13:34 | Ultrasound Report ---
PROCEDURE: Pelvic w/Transvag+Doppler Ltd INDICATIONS: pelvic pain TECHNIQUE: Real-time scanning was performed of the pelvic organs, with image documentation. Additional endovagi nal scanning was necessary due to incomplete visualization of the adnexal and endometrial structures by transabdominal scanning. COMPARISON: CT abdomen/pelvis 12/09/2019. FINDINGS: Transabdominal scanning: Limited scanning through the kidneys shows no hydronephrosis. No pathologi c free abdominal or pelvic fluid. Endovaginal scanning: Uterus: Uterus is normal in size at 4.3 x 4.7 x 6.2 cm. The endometrium measures 5.4 mm in combined thickness. A centrally positioned IUD appears normal. Ovaries: The right ovary measures 3.5 x 3.3 x 2.9 cm and the left measures 1.8 x 1.3 x 4.2 cm. IMPRESSION: Normal IUD positioning centrally located within the endometrial canal. Normal-appearing ovaries and u terus. No abnormal free fluid within the peritoneal space is found. Reviewed by: Calin Bucio MD on 06/03/2020 1:33 PM PST Approved by: Calin Bucio MD on 06/03/2020 1:33 PM PST Station ID: [id number]
[2020-06-03 14:10] LABS: CANDIDA GROUP DNA NEGATIVE (NEGATIVE); CANDIDA KRUSEI DNA NEGATIVE (NEGATIVE); TRICHOMONAS VAGINALIS DNA NEGATIVE (NEGATIVE)
[2020-06-03 14:43] VITALS: BP 142/75
[2020-06-03 23:38] LABS: TRICHOMONAS VAGINALIS DNA NEGATIVE (NEGATIVE)
== END 2020-06-03 14:38 | disposition home or self-care (01) ==
LOC: ED 10:46
DX: N39.0 Urinary tract infection, site not specified (principal)
CPT/HCPCS: 36415; 76830; 76856; 80048; 81001; 81025; 85025; 87086; 87481; 87491; 87591; 87661; 87801; 93976; 96374; 96375; 96376; 99284; 99285; J1170; J1200; 80053; 81003; 83690

== ENCOUNTER 2020-06-12 17:20 | Outpatient (CLI) | payer MEDICAID | END 2020-06-12 23:59 | disposition home or self-care (01) | LOC: LAB.R 17:20 | PROVIDERS: ATTEND Family Medicine | DX: N15.9 Renal tubulo-interstitial disease, unspecified (principal) | CPT/HCPCS: 87086 ==

== ENCOUNTER 2020-06-23 08:00 | Outpatient (CLI) | payer MEDICAID ==
[2020-06-23 19:16] LABS: MUDS CUTOFF CONCENTRATIONS CUTOFF CONC BELOW:
[2020-06-23 19:38] LABS: AMPHETAMINE SCREEN,URINE NEGATIVE (NEGATIVE); COCAINE SCREEN URINE NEGATIVE (NEGATIVE); METHAMPHETAMINES SCREEN, URINE NEGATIVE (NEGATIVE); OPIATE SCREEN, URINE POSITIVE (NEGATIVE)
[2020-06-23 19:39] LABS: BENZODIAZEPINES SCREEN, URINE POSITIVE (NEGATIVE); METHADONE SCREEN, URINE NEGATIVE (NEGATIVE); OXYCODONE SCREEN, URINE NEGATIVE (NEGATIVE); PROPOXYPHENE SCREEN, URINE NEGATIVE (NEGATIVE); TRICYCLIC ANTIDEPRESSANT,URINE NEGATIVE (NEGATIVE)
== END 2020-06-23 23:59 | disposition home or self-care (01) ==
LOC: LAB.R 08:00
PROVIDERS: ATTEND Family Medicine
DX: Z79.891 Long term (current) use of opiate analgesic (principal)
CPT/HCPCS: 80306

== ENCOUNTER 2021-01-18 15:51 | Emergency (ER) | payer MEDICAID ==
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
--- NOTE | 2021-01-18 18:46 | CT Report ---
PROCEDURE: CERVICAL SPINE WO INDICATIONS: head injury TECHNIQUE: Noncontrast 3 mm thick sections acquired from the skull base to the T4 level. Sagittal and coronal r eformats were then constructed. For radiation dose reduction, the following was used: automated exp osure control, adjustment of mA and/or kV according to patient size. COMPARISON: None. FINDINGS: Image quality: Excellent. Bones: No fractures or dislocations. Visualized superior ribs are intact. Soft tissues: Prevertebral soft tissues are normal in thickness. No paravertebral hematomas. No ap ical pneumothoraces. IMPRESSION: Moderately severe degenerative disc disease from C5-6 through C7-T1. No trauma found. Reviewed by: Calin Bucio MD on 01/18/2021 6:44 PM PDT Approved by: Calin Bucio MD on 01/18/2021 6:44 PM PDT Station ID: [id number]
--- NOTE | 2021-01-18 18:47 | CT Report ---
PROCEDURE: HEAD WO INDICATIONS: head injury TECHNIQUE: Noncontrast 4.5 mm thick angled axial sections acquired from the foramen magnum to the vertex. For r adiation dose reduction, the following was used: automated exposure control, adjustment of mA and/or kV according to patient size. COMPARISON: Comparison head CT and facial bone CT studies 07/09/2017. More recent head CT 10/28/2019 also reviewed.. FINDINGS: Image quality: Excellent. CSF spaces: Basal cisterns are patent. No extra-axial fluid collections. Ventricles are normal in size and shape. Brain: No midline shift. No intracranial masses or hemorrhage. Jensen-white matter interface is norm al. Skull and face: Calvarium and visualized facial bones are intact, without suspicious lesions. Sinuses: Visualized sinuses and mastoids are clear. IMPRESSION: No trauma found, no intracranial hemorrhage is identified. Reviewed by: Calin Bucio MD on 01/18/2021 6:45 PM PDT Approved by: Calin Bucio MD on 01/18/2021 6:45 PM PDT Station ID: [id number]
[2021-01-18 19:01] VITALS: BP 136/96
== END 2021-01-18 19:01 | disposition home or self-care (01) ==
LOC: ED 15:51
DX: S30.1XXA Contusion of abdominal wall, initial encounter (principal); S09.90XA Unspecified injury of head, initial encounter; S06.0X1A Concussion with loss of consciousness of 30 minutes or less, initial encounter; W01.198A Fall on same level from slipping, tripping and stumbling with subsequent striking against other object, initial encounter
CPT/HCPCS: 99284

== ENCOUNTER 2021-03-10 12:51 | Emergency (ER) | payer MEDICAID ==
[2021-03-10 13:00] VITALS: BP 156/87
--- NOTE | 2021-03-10 13:05 | ED Physician Documentation ---
History of Present Illness - Stated complaint Stated Complaint: MED REFILL - Chief complaint Chief Complaint: General - History obtained from History obtained from: Patient - History of Present Illness Timing: How many days ago (2) Severity Comments: She states she was unaware she did not have a refill on her medicines. Quality: She is feeling a little lightheaded and anxious and feels it is because of the lack of her daily medicines. Her primary care clinic was unable to get her an appointment until mid March and did not want to give a refill prior to seeing her. Review of Systems Constitutional: denies: Fever, Chills Nose: denies: Rhinorrhea / runny nose, Congestion Throat: denies: Sore throat Cardiac: denies: Chest pain / pressure Respiratory: denies: Dyspnea, Cough GI: reports: Nausea. denies: Abdominal Pain Neurologic: denies: Generalized weakness, Focal weakness, Numbness, Near syncope, Altered mental status, Headache Psychiatric: reports: Anxiety, Insomnia. 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 HEENT: None Psych: Depression, Anxiety, Eating disorder Musculoskeletal: None Derm: None - Past Surgical History Past Surgical History: Yes /VICE CHANCELLOR: Dilation and currettage, Other - Present Medications Home Medications: Ambulatory Orders Medication Instructions Recorded Confirmed Fluoxetine HCl 80 mg PO DAILY #60 capsule 06/27/18 03/10/21 Fluoxetine HCl [Prozac] 80 mg PO DAILY 30 Days #60 cap 03/10/21 Lisinopril [Zestril] 40 mg PO DAILY 03/10/21 03/10/21 lisinopriL [Lisinopril] 40 mg PO DAILY 30 Days #30 tablet 03/10/21 - Allergies Allergies/Adverse Reactions: Allergies Allergy/AdvReac Type Severity Reaction Status Date / Time Penicillins Allergy Severe Hives Verified 01/18/21 16:01 - Living Situation Living Situation: reports: With spouse/s.o. Living Arrangement: reports: At home - Social History Does the pt smoke?: No Smoking Status: Never smoker Does the pt drink ETOH?: No Does the pt have substance abuse?: Yes Substance Use and Type: Marijuana - Immunizations Immunizations are current?: Yes - POLST Patient has POLST: No PD ED PE NORMAL - Vitals Vital signs reviewed: Yes - Neck Neck: Supple, no meningeal sign, No adenopathy - Cardiac Cardiac: RRR, No murmur - Respiratory Respiratory: Clear bilaterally - Derm Derm: Normal color, Warm and dry - Neuro Neuro: Alert and oriented X 3, No motor deficit, Normal speech - Psych Psych: Normal mood. No: Normal affect (mildly anxious) Results - Vitals Vitals: Vital Signs - 24 hr 03/10/21 12:59 Temperature 36.2 C L Heart Rate 90 Respiratory 16 Rate Blood Pressure 156/87 H O2 Saturation 97 Oxygen O2 Source Room air PD MEDICAL DECISION MAKING - ED course Complexity details: reviewed old records, considered differential (symptoms c/w SSRI discontinuation. Can give refill for her. Appt in Mar with primary care. 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 Follow-up with the primary care clinic at their earliest appointment for ongoing medications and prescriptions. Discharge Date/Time: 03/10/21 13:44
[2021-03-10] MEDS ORDERED: FLUoxetine 10 MG CAPSULE PO STA (13:11)
== END 2021-03-10 13:44 | disposition home or self-care (01) ==
LOC: ED 12:51
DX: Z76.0 Encounter for issue of repeat prescription (principal)
CPT/HCPCS: 99282; 99283; A9270

== ENCOUNTER 2021-07-30 15:30 | Outpatient (CLI) | payer MEDICAID | END 2021-07-30 23:59 | disposition home or self-care (01) | LOC: LAB.N 15:30 | PROVIDERS: ATTEND Physician Assistant | DX: R05.3 Chronic cough (principal); Z20.822 Contact with and (suspected) exposure to COVID-19 ==

== ENCOUNTER 2022-12-26 13:16 | Emergency (ER) | payer MEDICAID ==
[2022-12-26 13:31] VITALS: BP 128/88
[2022-12-26 13:37] LABS: RAPID STREP SCREEN Negative (Negative)
[2022-12-26] MEDS ORDERED: DEXAMETHASONE 10 MG/ML VIAL PO STA (14:17)
[2022-12-26] MEDS ORDERED: CHERRY SYRUP 10 ML UDC PO ONE (14:17)
--- NOTE | 2022-12-26 14:20 | ED Physician Documentation ---
History of Present Illness - Stated complaint Stated Complaint: SORE THROAT,GEN WEAKNESS - Chief complaint Chief Complaint: Heent - History obtained from History obtained from: Patient - History of Present Illness Timing: Today Pain level max: 4 Pain level now: 4 - Additonal information Additional information: 37-year-old female presents to the emergency department with rhinorrhea, congestion, sore throat for the past 24 hours. Multiple coworkers with strep pharyngitis. She is concerned about same. Subjective fevers and chills. No vomiting. No abdominal pain. No diarrhea. Very mild cough. Worse with eating and drinking, nothing makes it better. Patient states that she has a history of an allergy to penicillins, but she can take Keflex without difficulty. 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 and currettage, Other - Present Medications Home Medications: Ambulatory Orders Medication Instructions Recorded Confirmed Fluoxetine HCl 80 mg PO DAILY #60 capsule 06/27/18 03/10/21 Fluoxetine HCl [Prozac] 80 mg PO DAILY 30 Days #60 cap 03/10/21 Lisinopril [Zestril] 40 mg PO DAILY 03/10/21 03/10/21 lisinopriL [Lisinopril] 40 mg PO DAILY 30 Days #30 tablet 03/10/21 cephALEXin [Keflex] 500 mg PO Q6H #40 cap 12/26/22 - Allergies Allergies/Adverse Reactions: Allergies Allergy/AdvReac Type Severity Reaction Status Date / Time Penicillins Allergy Severe Hives Verified 12/26/22 13:23 - Social History Does the pt smoke?: No Smoking Status: Never smoker Does the pt drink ETOH?: No Does the pt have substance abuse?: Yes - Immunizations Immunizations are current?: Yes - POLST Patient has POLST: No PD ED PE NORMAL - Vitals Vital signs reviewed: Yes - General General: Alert and oriented X 3, No acute distress, Well developed/nourished - HEENT HEENT: PERRL, Moist mucous membranes, Other (Posterior oropharynx is erythematous with tonsillar exudates. Normal phonation. No trismus. Uvula midline.) - Neck Neck: Supple, no meningeal sign - Cardiac Cardiac: RRR, Strong equal pulses - Respiratory Respiratory: No respiratory distress, Clear bilaterally - Abdomen Abdomen: Soft, Non tender, Non distended - Derm Derm: Warm and dry, No rash - Neuro Neuro: Alert and oriented X 3 - Psych Psych: Normal mood, Normal affect Results - Vitals Vitals: Vital Signs - 24 hr 12/26/22 13:20 Temperature 36.0 C L Heart Rate 74 Respiratory 14 Rate Blood Pressure 128/88 H O2 Saturation 99 Oxygen O2 Source Room air - Labs Labs: Laboratory Tests 12/26/22 13:23 Group A Strep Rapid Negative PD Medical Decision Making - ED course Complexity details: reviewed results, re-evaluated patient, considered differential, d/w patient ED course: Patient is well-appearing, nontoxic. Afebrile. Exam is consistent with strep pharyngitis, rapid strep is negative. Given her high risk and multiple exposures, We will treat for presumed strep pharyngitis. Patient states that she can take Keflex without issue despite her penicillin allergy. No evidence of retropharyngeal or peritonsillar abscess. Uvula midline. Normal phonation. No trismus. Patient counseled regarding signs and symptoms for which I believe and urgent re-evaluation would be necessary. Patient with good understanding of and agreement to plan and is comfortable going home at this time This document was made in part using voice recognition software. While efforts are made to proofread this document, sound alike and grammatical errors may occur. Departure - Departure Disposition: 01 Home, Self Care Clinical Impression: Pharyngitis Qualifiers: Pharyngitis/tonsillitis etiology: unspecified etiology Qualified Code(s): J02.9 - Acute pharyngitis, unspecified Condition: Good Instructions: ED Strep Pharyngitis Poss Follow-Up: your,doctor as needed [Other] Prescriptions: cephALEXin [Keflex] 500 mg PO Q6H #40 cap Comments: Please take all antibiotics until gone. Please follow-up with your doctor for further care. Please return if you worsen.
== END 2022-12-26 14:32 | disposition home or self-care (01) ==
LOC: ED 13:16
DX: J02.9 Acute pharyngitis, unspecified (principal); Z79.899 Other long term (current) drug therapy
CPT/HCPCS: 87070; 87430; 99283; A9270

== ENCOUNTER 2023-03-24 12:44 | Emergency (ER) | payer MEDICAID ==
[2023-03-24 12:57] VITALS: BP 150/80; O2SAT 97
--- NOTE | 2023-03-24 13:18 | ED Physician Documentation ---
History of Present Illness - Stated complaint Stated Complaint: BILAT ARM PX - Chief complaint Chief Complaint: Ext Problem - History obtained from History obtained from: Patient - Additonal information Additional information: The patient comes to the emergency department chief complaint of bilateral arm pain and numbness that has been going on for months. She states that she never really had a distinct injury and actually, had symptoms on and off mildly for years. The patient states that she works at [employer] for [employer] and spends a lot of time hunched over and looking down. 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 The patient denies any chest pain or shortness of breath. No other complaints at this time. She states she is mainly here to get an MRI. The patient does not currently have a primary doctor, as her former primary moved away. She has tried taking ibuprofen and Tylenol at home, without relief. 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 and currettage, Other - Present Medications Home Medications: Ambulatory Orders Medication Instructions Recorded Confirmed Cyclobenzaprine [Flexeril] 10 mg PO TID PRN 6 Days #20 tablet 03/24/23 Fluoxetine HCl 40 mg PO DAILY 03/24/23 03/24/23 Gabapentin [Neurontin] 100 mg PO TID #60 cap 03/24/23 predniSONE [Deltasone] 10 mg PO [id number] #42 tab 03/24/23 - Allergies Allergies/Adverse Reactions: Allergies Allergy/AdvReac Type Severity Reaction Status Date / Time Penicillins Allergy Severe Hives Verified 03/24/23 12:48 - Social History Does the pt smoke?: No Smoking Status: Never smoker Does the pt drink ETOH?: No Does the pt have substance abuse?: Yes - Immunizations Immunizations are current?: Yes - POLST Patient has POLST: No PD ED PE NORMAL - Vitals Vital signs reviewed: Yes - General General: Alert and oriented X 3, No acute distress, Well developed/nourished - HEENT HEENT: Atraumatic, PERRL, EOMI, Moist mucous membranes - Neck Neck: Supple, no meningeal sign, No bony TTP, Other (Some muscular tightness and tenderness along the bilateral paraspinal distribution.) - Cardiac Cardiac: Strong equal pulses - Respiratory Respiratory: No respiratory distress - Derm Derm: Normal color, Warm and dry, No rash - Extremities Extremities: No deformity - Neuro Neuro: Alert and oriented X 3, No motor deficit, No sensory deficit - Psych Psych: Normal mood, Normal affect Results - Vitals Vitals: Vital Signs - 24 hr 03/24/23 12:49 Temperature 36.5 C Heart Rate 85 Respiratory 16 Rate Blood Pressure 150/80 H O2 Saturation 97 Oxygen O2 Source Room air PD Medical Decision Making - ED course Complexity details: considered differential, d/w patient ED course: The patient was neurologically intact, and symptoms were longstanding. I discussed with her that unfortunately, she does not meet criteria for emergent MRI today. I have discussed nirav the importance of getting reestablished with primary care and have given her our local primary care physician who is on duty for ED follow-up, Dr. Lukasz Oseguera. We have discussed symptomatic treatment at home and I have provided some prescribed options for this. We discussed the usual indications for return. Departure - Departure Disposition: , Self Care Clinical Impression: Radiculopathy affecting upper extremity, Paresthesia and pain of both upper extremities Condition: Stable Instructions: ED Cervical Radiculopathy Follow-Up: Lukasz Oseguera MD [Provider Admit Priv/Credential] - Prescriptions: predniSONE [Deltasone] 10 mg PO [id number] #42 tab Cyclobenzaprine [Flexeril] 10 mg PO TID PRN 6 Days #20 tablet PRN Reason: Spasms Gabapentin [Neurontin] 100 mg PO TID #60 cap Comments: Your symptoms are consistent with nerve compression, either coming out of your neck or through your shoulders, or potentially both. The best test to evaluate this is MRI. Given that your symptoms are chronic and ongoing, there is not an emergent indication for MRI today and as such, the test will need to be scheduled through your primary doctor's office. Please make the next available appointment with primary care to follow-up on this. As far as your symptoms, heat, stretching, massage, and possibly with the right practitioner, chiropractic work may be helpful. You may also consider acupuncture and acupressure. Medication for inflammation and muscle relaxation has been prescribed and prescriptions have been provided to you today. Forms: PCP List Discharge Date/Time: 03/24/23 13:28
== END 2023-03-24 13:28 | disposition home or self-care (01) ==
LOC: ED 12:44
DX: M54.14 Radiculopathy, thoracic region (principal); R20.2 Paresthesia of skin
CPT/HCPCS: 99282; 99284

== ENCOUNTER 2023-06-02 15:52 | Emergency (ER) | payer MEDICAID ==
[2023-06-02 16:15] VITALS: BP 141/99; O2SAT 99
[2023-06-02 16:24] LABS: BILIRUBIN,URINE NEGATIVE (NEGATIVE); GLUCOSE, URINE (UA) NEGATIVE (NEGATIVE); KETONES,URINE (UA) NEGATIVE (NEGATIVE); LEUKOCYTE ESTERASE, URINE NEGATIVE (NEGATIVE); NITRITE,URINE NEGATIVE (NEGATIVE); OCCULT BLOOD,URINE NEGATIVE (NEGATIVE); PH,URINE 6.5 PH (5.0-7.5); PROTEIN,URINE NEGATIVE (NEGATIVE); UROBILINOGEN,URINE 0.2 (NORMAL) E.U./dL (NORMAL)
[2023-06-02 16:27] LABS: CLARITY,URINE CLEAR (CLEAR); HCG UR QUAL NEGATIVE
--- NOTE | 2023-06-02 16:48 | ED Physician Documentation ---
History of Present Illness - Stated complaint Stated Complaint: ARM NUMBNESS/ - Chief complaint Chief Complaint: General - History obtained from History obtained from: Patient - Additonal information Additional information: 38-year-old female presents with urinary urgency and frequency over the course of the last several weeks but no dysuria, denies any vaginal discharge, no flank pain or other abdominal pain, no nausea vomiting no fever. She was concerned for possible UTI. Denies any chance of , has IUD. No vaginal bleeding, denies any concern for STI. She does drink quite a bit of coffee caffeine each day and also drink sugary drinks throughout the day. No change in urine output. Patient is also requesting another round of steroids for upper extremity tingling and discomfort. She was seen in the past for radicular symptoms of both upper extremities and states that she had great relief with the steroids but that the tingling and discomfort has come back. It is bilateral, starts in the shoulder and radiates down the arm by laterally. She denies any trauma to the area, no recent injuries. He has no weakness of the extremities and no numbness but tingling in sharp shooting pains at times. She has not seen physical therapy or her PCP for this but states she did not have insurance for a period of time though has recently be reestablished and plans to follow-up with physical therapy and would like to see a chiropractor. 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 and currettage, Other - Present Medications Home Medications: Ambulatory Orders Medication Instructions Recorded Confirmed Cyclobenzaprine [Flexeril] 10 mg PO TID PRN 6 Days #20 tablet 03/24/23 Fluoxetine HCl 40 mg PO DAILY 03/24/23 03/24/23 Gabapentin [Neurontin] 100 mg PO TID #60 cap 03/24/23 predniSONE [Deltasone] 10 mg PO [id number] #42 tab 03/24/23 predniSONE [Deltasone] 10 mg PO [id number] #42 tab 06/02/23 - Allergies Allergies/Adverse Reactions: Allergies Allergy/AdvReac Type Severity Reaction Status Date / Time Penicillins Allergy Severe Hives Verified 03/24/23 12:48 - Social History Does the pt smoke?: No Smoking Status: Never smoker Does the pt drink ETOH?: No Does the pt have substance abuse?: Yes - Immunizations Immunizations are current?: Yes - POLST Patient has POLST: No PD ED PE NORMAL - Vitals Vital signs reviewed: Yes - General General: Alert and oriented X 3, No acute distress, Well developed/nourished - HEENT HEENT: Atraumatic, Moist mucous membranes - Neck Neck: Supple, no meningeal sign, No bony TTP - Cardiac Cardiac: RRR, No murmur - Respiratory Respiratory: No respiratory distress, Clear bilaterally - Abdomen Abdomen: Normal bowel sounds, Soft, Non tender, Non distended - Back Back: No CVA TTP - Derm Derm: Normal color, Warm and dry, No rash - Extremities Extremities: No deformity, No tenderness to palpate, Normal ROM s pain - Neuro Neuro: Alert and oriented X 3 Eye Opening: Spontaneous Motor: Obeys Commands Verbal: Oriented GCS Score: 15 - Psych Psych: Normal mood, Normal affect Results - Vitals Vitals: Vital Signs - 24 hr 06/02/23 16:04 Temperature 37 C Heart Rate 80 Respiratory 16 Rate Blood Pressure 141/99 H O2 Saturation 99 Oxygen O2 Source Room air - Labs Labs: Laboratory Tests 06/02/23 16:15 Urine Color YELLOW Urine Clarity CLEAR Urine pH 6.5 Ur Specific Correll 1.015 Urine Protein NEGATIVE Urine Glucose (UA) NEGATIVE Urine Ketones NEGATIVE Urine Occult Blood NEGATIVE Urine Nitrite NEGATIVE Urine Bilirubin NEGATIVE Urine Urobilinogen 0.2 (NORMAL) Ur Leukocyte Esterase NEGATIVE Ur Microscopic Review NOT INDICATED Urine Culture Comments NOT INDICATED Urine HCG, Qual NEGATIVE PD Medical Decision Making - ED course Complexity details: reviewed old records, reviewed results, d/w patient ED course: 38-year-old female presented with urinary urgency and frequency though no dysuria or other signs of UTI. We did obtain a urinalysis which shows no signs of infection. Patient denies any concern for UTI and has IUD this a chance of is low. She does drink a lot of caffeine and sugary drinks throughout the day and I have encouraged her to reduce her caffeine intake and change from sugary drinks to primarily water to reduce the chance of bladder spasms, and urinary frequency. If she has ongoing symptoms despite these changes, follow-up with PCP or gynecology. She is also requesting refill of prednisone which she had in the past for bilateral cervical radicular pain. She has similar symptoms again and had good relief with the prednisone therefore I have represcribed a short prednisone taper but have encouraged her to follow-up with physical therapy for this issue And reviewed some chest opening and neck stretches that she can do at home. Return precautions reviewed if any new or worsening symptoms. Departure - Departure Disposition: Home, Self Care Clinical Impression: Radiculopathy affecting upper extremity, Urinary urgency Condition: Good Instructions: ED Cervical Radiculopathy, ED Bladder Instability Female Prescriptions: predniSONE [Deltasone] 10 mg PO [id number] #42 tab Comments: Please get into see physical therapy or chiropractor for your neck and arm issues. I will give you another short course of steroids but you do not want to use this medication frequently due to side effects. Physical therapy can be very effective. Your urine test does not show signs of infection. I suspect your symptoms may be related to your high caffeine and sugary drink consumption. Please try to cut back and drink primarily water. Sugar and caffeine can stimulate the bladder. If you have any concerns for sexually transmitted infection or other new concerns, please follow-up with your PCP or return to the ER. Your prescription was sent to [facility] Forms: PCP List Discharge Date/Time: 06/02/23 16:54
== END 2023-06-02 16:54 | disposition home or self-care (01) ==
LOC: ED 15:52
DX: R39.15 Urgency of urination (principal); M54.12 Radiculopathy, cervical region
CPT/HCPCS: 81001; 81003; 81025; 87086; 99283

== ENCOUNTER 2023-09-15 12:47 | Emergency (ER) | payer MEDICAID ==
[2023-09-15 13:07] VITALS: BP 144/106; O2SAT 99
--- NOTE | 2023-09-15 13:41 | ED Physician Documentation ---
PD HPI URI - Stated complaint Stated Complaint: RIB PX - Chief complaint Chief Complaint: General - History obtained from History obtained from: Patient - History of Present Illness Timing - onset: How many days ago (several days of pleuritic pain chest/ribs, also with coughing. Did have strong coughing last week with apparent URI.) Timing duration: Days Timing details: Gradual onset, Still present Associated symptoms: Dry cough, Chest pain (ribs/chest area with breathing and coughing.). No: Fever, Chills, Dyspnea Contributing factors: No: COPD / asthma Review of Systems Constitutional: denies: Fever, Chills Nose: reports: Congestion Throat: denies: Sore throat Cardiac: reports: Chest pain / pressure. 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 HEENT: None Psych: Depression, Anxiety, Eating disorder Musculoskeletal: None Derm: None - Past Surgical History Past Surgical History: Yes /MOPHEAD SEWER: Dilation and currettage, Other - Present Medications Home Medications: Ambulatory Orders Medication Instructions Recorded Confirmed Cyclobenzaprine [Flexeril] 10 mg PO TID PRN 6 Days #20 tablet 03/24/23 Fluoxetine HCl 40 mg PO DAILY 03/24/23 03/24/23 Gabapentin [Neurontin] 100 mg PO TID #60 cap 03/24/23 predniSONE [Deltasone] 10 mg PO [id number] #42 tab 03/24/23 predniSONE [Deltasone] 10 mg PO [id number] #42 tab 06/02/23 Albuterol Sulf [Ventolin Hfa 2 puffs INH QID #1 each 09/15/23 Inhaler] HYDROcod/ACETAM 5/325 [Lafe 5/325] 1 ea PO Q6H PRN #12 tablet 09/15/23 dexAMETHasone [Decadron] 4 mg PO DAILY #7 tablet 09/15/23 - Allergies Allergies/Adverse Reactions: Allergies Allergy/AdvReac Type Severity Reaction Status Date / Time Penicillins Allergy Severe Hives Verified 09/15/23 13:02 - Social History Does the pt smoke?: No Smoking Status: Never smoker Does the pt drink ETOH?: No Does the pt have substance abuse?: Yes - Immunizations Immunizations are current?: Yes - POLST Patient has POLST: No PD ED PE NORMAL - Vitals Vital signs reviewed: Yes - General General: Alert and oriented X 3, No acute distress, Well developed/nourished - HEENT HEENT: Ears normal, Pharynx benign - Neck Neck: Supple, no meningeal sign, No adenopathy - Cardiac Cardiac: RRR, No murmur - Respiratory Respiratory: No respiratory distress, Clear bilaterally, Other (some chestwall tednderness in ribs area. No noted deformity. ) Results - Vitals Vitals: Oxygen O2 Source Room air - Labs Labs: Laboratory Tests 09/15/23 09/15/23 09/15/23 14:20 14:20 14:20 ESR 13 Sodium 138 Potassium 3.9 Chloride 105 Carbon Dioxide 27 Anion Gap 6.0 BUN 9 Creatinine 0.8 Estimated GFR (MDRD) 81 L Glucose 101 Calcium 9.1 C-Reactive Protein < 0.5 Rheumatoid Factor NEGATIVE Double Strand DNA Ab 09/15/23 14:20 ESR Sodium Potassium Chloride Carbon Dioxide Anion Gap BUN Creatinine Estimated GFR (MDRD) Glucose Calcium C-Reactive Protein Rheumatoid Factor Double Strand DNA Ab 1 - Rads (name of study) chest/ribs Relevant Findings:: Prelim report reviewed, EMP independent interpretation of test (no effusion, PTX, infiltrates nor rib abnormalities. ) PD Medical Decision Making - ED course Complexity details: reviewed results (xray normal. Presume muscle strain. No PTX, effusion, pneumonia nor rib injuries on xray. ), considered differential (having pleurisy type pain with recent URI. Has had various joint pains and areas of tenderness over past couple of months. Consider underlying autimmune process. Can do some screening labs which will be partly sendout, so PMD to follow up. ), d/w patient Departure - Departure Disposition: 01 Home, Self Care Clinical Impression: Right-sided chest pain, Recent upper respiratory tract infection Condition: Stable Record reviewed to determine appropriate education?: Yes Instructions: ED Strain Chest Wall Prescriptions: dexAMETHasone [Decadron] 4 mg PO DAILY #7 tablet HYDROcod/ACETAM 5/325 [Lafe 5/325] 1 ea PO Q6H PRN #12 tablet PRN Reason: Pain Albuterol Sulf [Ventolin Hfa Inhaler] 2 puffs INH QID #1 each Comments: Your chest x-ray is clear without any signs of pneumonia, collapsed lung, fluid around the lung. Presume you have some muscle strain or some inflammation around the lung related to the recent respiratory infection and cough. We can treat this with anti-inflammatory Dexamethasone daily for the next 5 to 7 days. Use Tylenol 500 to 650 mg every 4-6 hours if needed for pain. To that add hydrocodone/acetaminophen if needed for worse pain. To help with your cough and therefore hurting less, you can try an albuterol inhaler 2 puffs 4 times daily for the next several days to week. I would anticipate improvement over the next several days or so and resolved by 3 to 5 days. Activity as tolerated. Since you have been having various areas of pain in the joints and back, it does raise the possibility of an autoimmune type process such as rheumatoid arthritis or such. We did do some blood tests here today to see if there is any indication of those. They do not come back immediately. They will result in a few days. Follow-up with your primary care clinic for follow-up appointment in 2 follow-up on the blood test results. I sent your prescriptions to your preferred pharmacy. I am prescribing a short course of narcotic pain medication for you. These are potentially dangerous and addictive medications that should be used carefully. These medications may constipate you. Take an [id number] stool softener such as docusate twice daily with plenty of water while taking these medications. If you go 24 hours without a bowel movement, take [id number] MiraLAX, per package instructions. Do not drink or drive while taking these medications. If you received narcotic or sedating medications while in the emergency department do not drive for 24 hours. Store this medication in a safe, secure place and out of reach of children. It is a violation of federal law to give or sell this medication to another person or to use in a manner other than prescribed. The ED will not refill narcotic prescriptions, including prescriptions lost or stolen. You can dispose of unwanted medications at the [facility]'s office or at several pharmacies such as [facility]. Forms: PCP List Discharge Date/Time: 09/15/23 14:33
--- NOTE | 2023-09-15 13:47 | XRAY Report ---
PROCEDURE: Ribs w/PA Chest 3+V RT INDICATIONS: pain with cough TECHNIQUE: 2 views of the ribs were acquired, along with a single view chest. COMPARISON: None. FINDINGS: Surgical changes and devices: None. Bones and chest wall: No fractures or dislocations. No suspicious bony lesions. Overlying soft tis sues appear unremarkable. Lungs and pleura: No pleural effusions or pneumothorax. Lungs appear clear. Mediastinum: Mediastinal contours appear normal. Heart size is normal. IMPRESSION: No displaced rib fracture or underlying pulmonary process. Reviewed by: Michele Meza MD on 09/15/2023 1:46 PM PST Approved by: Michele Meza MD on 09/15/2023 1:46 PM PST Station ID: [id number]
[2023-09-15] MEDS: dexAMETHasone 4 MG TABLET PO STA (14:12)
[2023-09-15] MEDS: ACETAMINOPHEN 500 MG TABLET PO STA (14:12)
[2023-09-15 14:47] LABS: BUN - BLOOD UREA NITROGEN 9 mg/dL (6-20); CALCIUM 9.1 mg/dL (8.5-10.3); CARBON DIOXIDE - CO2 27 mmol/L (21-32); CHLORIDE 105 mmol/L (101-111); CREATININE 0.8 mg/dL (0.6-1.3); CRP - C-REACTIVE PROTEIN < 0.5 mg/dL (<0.5); GFR - MDRD 81 (>89); GLUCOSE 101 mg/dL (74-104); POTASSIUM 3.9 mmol/L (3.5-4.5); SODIUM 138 mmol/L (135-145)
[2023-09-15 16:03] LABS: RHEUMATOID FACTOR NEGATIVE (Negative)
== END 2023-09-15 14:33 | disposition home or self-care (01) ==
LOC: ED 12:47
DX: R07.9 Chest pain, unspecified (principal); Z87.09 Personal history of other diseases of the respiratory system
CPT/HCPCS: 36415; 71101; 80048; 85651; 86140; 86225; 86430; 99283; 99284; A9270; J8540

== ENCOUNTER 2023-11-26 08:58 | Emergency (ER) | payer MEDICAID ==
[2023-11-26 09:51] LABS: BASOPHILS % (AUTO) 0.7 %; EOSINOPHILS # (AUTO) 0.3 10^3/uL (0.0-0.7); EOSINOPHILS % (AUTO) 4.7 %; HCT - HEMATOCRIT 38.1 % (37.0-47.0); LYMPHOCYTES # (AUTO) 1.3 10^3/uL (1.5-3.5); LYMPHOCYTES % (AUTO) 22.6 %; MEAN CORPUSCULAR HEMOGLOBIN 31.7 pg (27.0-31.0); MEAN CORPUSCULAR HGB CONC 34.1 g/dL (32.0-36.0); MEAN CORPUSCULAR VOLUME 92.9 fL (81.0-99.0); MEAN PLATELET VOLUME 8.5 fL (7.9-10.8); MONOCYTES # (AUTO) 0.6 10^3/uL (0.0-1.0); MONOCYTES % (AUTO) 10.2 %; NEUTROPHILS # (AUTO) 3.5 10^3/uL (1.5-6.6); NEUTROPHILS % (AUTO) 61.4 %; PLT - PLATELET COUNT 247 10^3/uL (130-450); RED CELL DISTRIBUTION WIDTH 12.3 % (12.0-15.0); WHITE BLOOD COUNT 5.7 x10^3/uL (4.8-10.8)
[2023-11-26 09:52] LABS: BILIRUBIN,URINE NEGATIVE (NEGATIVE); GLUCOSE, URINE (UA) NEGATIVE (NEGATIVE); KETONES,URINE (UA) NEGATIVE (NEGATIVE); LEUKOCYTE ESTERASE, URINE NEGATIVE (NEGATIVE); NITRITE,URINE NEGATIVE (NEGATIVE); OCCULT BLOOD,URINE NEGATIVE (NEGATIVE); PROTEIN,URINE NEGATIVE (NEGATIVE); UROBILINOGEN,URINE 0.2 (NORMAL) E.U./dL (NORMAL)
[2023-11-26 09:53] LABS: CLARITY,URINE CLEAR (CLEAR)
[2023-11-26 09:54] LABS: HCG UR QUAL NEGATIVE
[2023-11-26 10:12] LABS: ALBUMIN 4.2 g/dL (3.2-5.5); ALBUMIN/GLOBULIN RATIO 2.1 (1.0-2.2); BILIRUBIN,TOTAL 0.6 mg/dL (0.2-1.0); CALCIUM 9.2 mg/dL (8.5-10.3); CREATININE 0.5 mg/dL (0.6-1.3); TOTAL PROTEIN 6.2 g/dL (6.4-8.9)
[2023-11-26 11:27] VITALS: BP 139/97; O2SAT 97
--- NOTE | 2023-11-26 12:02 | ED Physician Documentation ---
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 She is here today with pain in her back over her right kidney. She does not have significance nausea and she denies specific urinary symptoms. She denies fever. 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 HEENT: None Psych: Depression, Anxiety, Eating disorder Musculoskeletal: None Derm: None - Past Surgical History Past Surgical History: Yes /TREE KILLER: Dilation and currettage, Other - Present Medications Home Medications: Ambulatory Orders Medication Instructions Recorded Confirmed Fluoxetine HCl 40 mg PO DAILY 03/24/23 11/26/23 Albuterol Sulf [Ventolin Hfa 2 puffs INH QID #1 each 09/15/23 11/26/23 Inhaler] predniSONE [Deltasone] 40 mg PO DAILY 5 Days #10 tablet 11/26/23 - Allergies Allergies/Adverse Reactions: Allergies Allergy/AdvReac Type Severity Reaction Status Date / Time Penicillins Allergy Severe Hives Verified 11/26/23 09:08 - Social History Does the pt smoke?: No Smoking Status: Never smoker Does the pt drink ETOH?: No Does the pt have substance abuse?: Yes - Immunizations Immunizations are current?: Yes - POLST Patient has POLST: No PD ED PE NORMAL - Vitals Vital signs reviewed: Yes (hypertensive ) - General General: Alert and oriented X 3, No acute distress, Well developed/nourished - HEENT HEENT: Atraumatic, PERRL, EOMI - Respiratory Respiratory: No respiratory distress - Back Back: Other (There is pain to palpation over the right flank that is painful posteriorly but it is not painful to bimanual palpation. 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, No motor deficit, No sensory deficit, Normal speech Eye Opening: Spontaneous Motor: Obeys Commands Verbal: Oriented GCS Score: 15 - Psych Psych: Normal mood, Normal affect Results - Vitals Vitals: Vital Signs - 24 hr 11/26/23 11/26/23 09:05 11:08 Temperature 36.7 C Heart Rate 87 59 L Respiratory 16 18 Rate Blood Pressure 144/98 H 139/97 H O2 Saturation 99 97 Oxygen O2 Source Room air - Labs Labs: Laboratory Tests 11/26/23 11/26/23 11/26/23 09:40 09:47 09:47 WBC 5.7 RBC 4.10 L Hgb 13.0 Hct 38.1 MCV 92.9 MCH 31.7 H MCHC 34.1 RDW 12.3 Plt Count 247 MPV 8.5 Neut # (Auto) 3.5 Lymph # (Auto) 1.3 L Weld # (Auto) 0.6 Eos # (Auto) 0.3 Baso # (Auto) 0.0 Absolute Nucleated RBC 0.00 Nucleated RBC % 0.0 Sodium 134 L Potassium 4.0 Chloride 102 Carbon Dioxide 27 Anion Gap 5.0 L BUN 10 Creatinine 0.5 L Estimated GFR (MDRD) 139 Glucose 77 Calcium 9.2 Total Bilirubin 0.6 AST 44 H ALT 14 Alkaline Phosphatase 64 Total Protein 6.2 L Albumin 4.2 Globulin 2.0 L Albumin/Globulin Ratio 2.1 Lipase 38 Urine Color YELLOW Urine Clarity CLEAR Urine pH 6.0 Ur Specific Shannon 1.025 Urine Protein NEGATIVE Urine Glucose (UA) NEGATIVE Urine Ketones NEGATIVE Urine Occult Blood NEGATIVE Urine Nitrite NEGATIVE Urine Bilirubin NEGATIVE Urine Urobilinogen 0.2 (NORMAL) Ur Leukocyte Esterase NEGATIVE Ur Microscopic Review NOT INDICATED Urine Culture Comments NOT INDICATED Urine HCG, Qual NEGATIVE PD Medical Decision Making - ED course Complexity details: reviewed results, re-evaluated patient, considered differential, d/w patient Reviewed Lab Results: We reviewed a complete blood count showing a normal white blood cell count normal hemoglobin hematocrit and platelets chemistry showed normal electrolytes normal kidney and liver function urinalysis shows clear yellow urine specific gravity 1.025 it is negative for any aspect of infection and the hCG is negative. These laboratory tests do not contribute to any specific diagnosis they do help rule out the possibility of pyelonephritis as a cause for this patient's pain. ED course: 38-year-old female with right flank pain has tenderness to the right flank without tenderness to the kidney to bimanual palpation and she has a negative urinalysis. She is treated for myofascial pain with dexamethasone and Toradol. Departure - Departure Disposition: 01 Home, Self Care Clinical Impression: Strain of fascia at thorax level Condition: Stable Instructions: ED Myofascial Pain Syndrome Follow-Up: [facility] [place] [Provider Group] Prescriptions: predniSONE [Deltasone] 40 mg PO DAILY 5 Days #10 tablet Comments: Maria Eugenia, today it looks like you have another inflammatory condition involving the muscles and bones in your body. This usually happens from a rapid movement or a movement with too great of a load. The expectation with treatment is reduction in the inflamed inflammation and pain over the next several days. I have E scribed some prednisone to the [email or web address] in [place].
[2023-11-26] MEDS: DEXAMETHASONE 10 MG/ML VIAL PO STA (12:09)
[2023-11-26] MEDS: KETOROLAC 30 MG/ML VIAL IVP STA (12:09)
[2023-11-26] MEDS: CHERRY SYRUP 10 ML UDC PO ONE (12:09)
== END 2023-11-26 12:29 | disposition home or self-care (01) ==
LOC: ED 08:58
DX: S29.012A Strain of muscle and tendon of back wall of thorax, initial encounter (principal); F32.A Depression, unspecified; F41.9 Anxiety disorder, unspecified
CPT/HCPCS: 36415; 80053; 81003; 81025; 83690; 85025; 96374; 99283; 99284; A9270; 81001; 87086

== ENCOUNTER 2024-01-13 17:29 | Emergency (ER) | payer MEDICAID ==
[2024-01-13 17:58] VITALS: O2SAT 99
--- NOTE | 2024-01-13 19:09 | ED Physician Documentation ---
History of Present Illness - Stated complaint Stated Complaint: C+/N/V/D - Chief complaint Chief Complaint: General - History obtained from History obtained from: Patient - Additonal information Additional information: patient says "i've been positive with COVID for two weeks", c/o nonproductive cough, thick green rhinorrhea, dyspnea, generalized body aches. denies fever but has had chills and sweats. had generalized headache x 4-5 days but this has resolved. c/o fatigue, "no energy". she says her symptoms had been improving last week but now worsening x few days. spouse at home has similar symptoms and also is COVID positive. patient says she tested (home test) today and was again positive for COVID Review of Systems Constitutional: reports: Chills, Myalgias, Fatigue, Sweats. denies: Fever Cardiac: reports: Reviewed and negative Respiratory: reports: Dyspnea, Cough. denies: Hemoptysis, Wheezing GI: reports: Nausea. 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: Dilation and currettage, Other - Present Medications Home Medications: Ambulatory Orders Medication Instructions Recorded Confirmed Fluoxetine HCl 40 mg PO DAILY 03/24/23 11/26/23 Albuterol Sulf [Ventolin Hfa 2 puffs INH QID #1 each 09/15/23 11/26/23 Inhaler] predniSONE [Deltasone] 40 mg PO DAILY 5 Days #10 tablet 11/26/23 FLUoxetine [PROzac] 10 mg PO DAILY #56 cap 01/13/24 predniSONE [Deltasone] 40 mg PO DAILY 3 Days #6 tablet 01/13/24 - Allergies Allergies/Adverse Reactions: Allergies Allergy/AdvReac Type Severity Reaction Status Date / Time Penicillins Allergy Severe Hives Verified 01/13/24 17:44 - Social History Does the pt smoke?: No Smoking Status: Never smoker Does the pt drink ETOH?: No Does the pt have substance abuse?: Yes - Immunizations Immunizations are current?: Yes - POLST Patient has POLST: No PD ED PE NORMAL - Vitals Vital signs reviewed: Yes - General General: Alert and oriented X 3, No acute distress, Well developed/nourished - Cardiac Cardiac: RRR, No murmur - Respiratory Respiratory: No respiratory distress - Abdomen Abdomen: Soft, Non tender PD ED PE EXPANDED - Respiratory Respiratory: Rhonchi (bilateral) Results - Vitals Vitals: Vital Signs - 24 hr 01/13/24 21:45 Heart Rate 70 Respiratory 16 Rate Blood Pressure 145/60 H O2 Saturation 99 Oxygen O2 Source Room air - Labs Labs: Microbiology 01/13/24 19:39 Group A Strep Throat Culture - Preliminary Throat CULTURE IN PROGRESS. RESULTS TO FOLLOW. Laboratory Tests 01/13/24 01/13/24 01/13/24 19:39 19:45 19:45 WBC 4.5 L RBC 3.92 L Hgb 12.5 Hct 36.7 L MCV 93.6 MCH 31.9 H MCHC 34.1 RDW 11.9 L Plt Count 272 MPV 8.7 Neut # (Auto) 2.6 Lymph # (Auto) 1.4 L Hanson # (Auto) 0.5 Eos # (Auto) 0.1 Baso # (Auto) 0.0 Absolute Nucleated RBC 0.00 Nucleated RBC % 0.0 Sodium 137 Potassium 3.4 L Chloride 103 Carbon Dioxide 27 Anion Gap 7.0 BUN 7 Creatinine 0.5 L Estimated GFR (MDRD) 139 Glucose 126 H Calcium 9.1 Group A Strep Rapid Negative - Rads (name of study) chest xray Relevant Findings:: Prelim report reviewed, See rad report PD Medical Decision Making - ED course Complexity details: reviewed results, re-evaluated patient, considered differential, d/w patient ED course: No concerning findings on blood tests (CBC, BMP); mild leukopenia (WBC 4.5) and minimal hypokalemia (K 3.4) noted. Rapid strep negative and normal CXR. Concern for superimposed/secondary infection given HPI (COVID positive 2 weeks ago, near-resolution of symptoms with rapid return and worsening symptoms x few days), but no findings on tonight's tests to support this. Results d/w patient, return precautions reviewed. HPI and pulmonary auscultation on exam are c/w bronchospasm and for this she is given 10mg PO decadron in ED and e-prescribed 40mg prednisone QD x 3 days. She says she already has an albuterol MDI at home (and has been using it with less improvement per use over the course of the past 1-2 days). She also asks for rx for her prozac, having recently run out and thus self-tapered from 40mg QD to 20mg QD before running out a few days ago; I e-prescribed a 2-week supply of 40mg QD prozac. She says she will be able to follow up with PCP before she runs out of this two-week course Departure - Departure Disposition: 01 Home, Self Care Clinical Impression: Viral URI Condition: Good Instructions: ED Upper Resp Infec No Abx Tx Prescriptions: predniSONE [Deltasone] 40 mg PO DAILY 3 Days #6 tablet FLUoxetine [PROzac] 10 mg PO DAILY #56 cap Comments: There were no concerning findings on tonight's blood tests, and your chest x-ray was unremarkable (specifically no evidence of pneumonia). As we discussed, your white blood cell count was slightly below the normal range as was your potassium level, neither to a concerning extent, but you should mention both of these abnormalities to your primary care provider when you next see them (WBC 4.5, potassium 3.4). You were given a dose of oral dexamethasone (steroid) to help with the inflammation that is causing much of your symptoms; hopefully this medication will help you breathe easier and reduce your throat pain/swelling. I have electronically submitted prescriptions for daily prednisone (oral steroid x 3 days) as well as daily Prozac (per your request as you have run out of your previous prescription) to the [facility] pharmacy in [place]. Forms: Activity restrictions Discharge Date/Time: 01/13/24 22:01
--- NOTE | 2024-01-13 19:52 | XRAY Report ---
PROCEDURE: Chest 1V INDICATIONS: cough, rhonchi TECHNIQUE: One view of the chest was acquired. COMPARISON: 09/15/2023. FINDINGS: Surgical changes and devices: None. Lungs and pleura: No pleural effusions or pneumothorax. Lungs are clear. Mediastinum: Mediastinal contours appear normal. Heart size is normal. Bones and chest wall: No suspicious bony lesions. Overlying soft tissues appear unremarkable. IMPRESSION: No acute cardiopulmonary process. Reviewed by: Ag Skinner MD on 01/13/2024 6:50 PM JOSSELYN Approved by: Ag Skinner MD on 01/13/2024 6:50 PM JOSSELYN Station ID: [id number]
[2024-01-13 19:53] LABS: BASOPHILS % (AUTO) 0.4 %; EOSINOPHILS # (AUTO) 0.1 10^3/uL (0.0-0.7); EOSINOPHILS % (AUTO) 1.6 %; HCT - HEMATOCRIT 36.7 % (37.0-47.0); HGB - HEMOGLOBIN 12.5 g/dL (12.0-16.0); LYMPHOCYTES # (AUTO) 1.4 10^3/uL (1.5-3.5); LYMPHOCYTES % (AUTO) 31.1 %; MEAN CORPUSCULAR HEMOGLOBIN 31.9 pg (27.0-31.0); MEAN CORPUSCULAR HGB CONC 34.1 g/dL (32.0-36.0); MEAN CORPUSCULAR VOLUME 93.6 fL (81.0-99.0); MEAN PLATELET VOLUME 8.7 fL (7.9-10.8); MONOCYTES # (AUTO) 0.5 10^3/uL (0.0-1.0); NEUTROPHILS # (AUTO) 2.6 10^3/uL (1.5-6.6); NEUTROPHILS % (AUTO) 56.9 %; PLT - PLATELET COUNT 272 10^3/uL (130-450); RED BLOOD COUNT 3.92 10^6/uL (4.20-5.40); RED CELL DISTRIBUTION WIDTH 11.9 % (12.0-15.0); WHITE BLOOD COUNT 4.5 x10^3/uL (4.8-10.8)
[2024-01-13 20:11] LABS: CALCIUM 9.1 mg/dL (8.5-10.3); CREATININE 0.5 mg/dL (0.6-1.3); POTASSIUM 3.4 mmol/L (3.5-4.5)
[2024-01-13 20:14] LABS: RAPID STREP SCREEN Negative (Negative)
[2024-01-13] MEDS: CHERRY SYRUP 10 ML UDC PO ONE (21:39)
[2024-01-13] MEDS: DEXAMETHASONE 10 MG/ML VIAL PO STA (21:39)
[2024-01-13 22:08] VITALS: BP 145/60
== END 2024-01-13 22:01 | disposition home or self-care (01) ==
LOC: ED 17:29
DX: J06.9 Acute upper respiratory infection, unspecified (principal); E87.6 Hypokalemia; D70.9 Neutropenia, unspecified
CPT/HCPCS: 36415; 71045; 80048; 85025; 87070; 87430; 99284; A9270